=== PATIENT | male | born 1940 | race Caucasian/White ===

== ENCOUNTER 2016-11-19 18:05 | Inpatient (IN) | payer MEDICARE ==
[~2016-11-19] VITALS: Ht 172.7 cm; Wt 78.6 kg
[~2016-11-19 18:05] MED LIST: ASPI-586 PO; BISA-65 PO; CALC-697 PO; CALC600T12 PO; CARV3.12 PO; CARV3.122 PO; CARV6.252 PO; CEFD300C3 PO; CITA20TA12 PO; CITA20TA7 PO; CITA40TA19 PO; CLIN300C11 PO; DOXY100T2 PO; FURO-124 PO; FURO40TA4 PO; INSU100V16 SQ; INSU100V6 SQ; LIPA1CAP PO; LIPA1CAP19 PO; METAMUCIL425 G1 PO; MULT-35 PO; MULT-422 PO; PANT40SU PO; PANT40TA2 PO; PANT40TA3 PO; POLY17PO6 PO; POTA-51 PO; POTA10TA6 PO; PRAV20TA PO; PRAV40TA2 PO; PRAV80TA2 PO; PSYL3.4P5 PO; RIVA1PAT TD; TAMS0.4C2 PO; TAMS0.4C98 PO; TICA90TA PO
[2016-11-19] MEDS ORDERED: RT-ALBUTEROL/IPRATROPIUM 3 ML (DUONEB) VIAL ONE (18:15)
[2016-11-19] MEDS ORDERED: LORazepam INJ 2 MG/ML (ATIVAN) VIAL IVP ONE ×2 (18:15→20:45)
--- NOTE | 2016-11-19 18:17 | ED Respiratory ---
General Stated Complaint: SOB Source: EMS, RN notes reviewed, assisted records, old records Exam Limitations: clinical condition History of Present Illness Time seen by provider: 18:10 Initial Comments Patient brought in via EMS from local [place] c/ c/o fairly acute onset of respiratory distress just [employer] p/ awakening from a nap. Reportedly was fine before the nap. Recently dx c/ possible aspiration pneumonia and looks like Rx' d Clindamycin. Patient very anxious upon arrival. Unable to give any hx. Timing/Duration: just prior to arrival Severity: severe Prior Episodes/Possible Cause: unknown cause Modifying Factors: Improves With Rest Associated Symptoms: shortness of breath Allergies and Home Medications Allergies Coded Allergies: No Known Drug Allergies (Unverified , 03/14/16) Home Medications Aspirin 81 Mg Tablet.dr, 81 MG PO DAILY, (Reported) Calcium Carbonate/Vitamin D3 1 Each Tablet, 1 TAB PO BID, (Reported) Carvedilol 3.125 Mg Tablet, 3.125 MG PO BID, (Reported) LAST FILLED #60 01-28-16 Citalopram Hydrobromide 20 Mg Tablet, 20 MG PO DAILY for 28 Days, (Reported) LAST FILLED #30 16 Clindamycin HCl 300 Mg Capsule, 300 MG PO Q6H, #40 Ref 0 Prescribed by: ARVIND CRAWFORD on 03/06/16 1042 Furosemide 40 Mg Tablet, 40 MG PO DAILY, (Reported) Insulin Glargine,Hum.rec.anlog 100 Unit/1 Ml Vial, 15 UNIT SQ HS, #1 Ref 0 Prescribed by: ARVIND CRAWFORD on 03/06/16 1042 Lipase/Protease/Amylase 1 Each Capsule.dr, 15,000 UNIT PO TID, (Reported) TAKES 3 (5,000 UNIT) CAPSULES Pantoprazole Sodium 40 Mg Tablet.dr, 40 MG PO DAILY, (Reported) Polyethylene Glycol 3350 17 Gm Powd.pack, 17 GM PO DAILY PRN for CONSTIPATION, ( Reported) Potassium Chloride 10 Meq Tablet.er, 10 MEQ PO DAILY, (Reported) Tamsulosin HCl 0.4 Mg Cap.er.24h, 0.4 MG PO 1730, (Reported) Constitutional: see HPI Respiratory: see HPI, short of breath, wheezing Psychiatric/Neurological: See HPI, Anxiety All Other Systems Reviewed Negative Unless Noted: Yes (Negative excepted noted.) Past Etwhsag-Knhbnm-Hzolkk Hx Patient Social History Type Used: Cigarettes Former Smoker/When Quit: October 24, 1998 Recent Hopitalizations: No Immunizations Up To Date Tetanus Booster (TDap): Unknown PED Vaccines UTD: No Date of Pneumonia Vaccine: Jun 07, 2014 Date of Influenza Vaccine: Jun 07, 2014 Seasonal Allergies Seasonal Allergies: Yes Surgeries HX Surgeries: Yes Surgeries: Abdominal, Cardiac, Coronary Stent, Neurological Respiratory Hx Respiratory Disorders: Yes Respiratory Disorders: Pneumonia, COPD Cardiovascular Hx Cardiac Disorders: Yes Cardiac Disorders: Coronary Artery Disease, Heart Attack, High Cholesterol, Hypertension Neurological Hx Neurological Disorders: Yes Neurological Disorders: Dementia, Traumatic Brain Injury Reproductive System Hx Reproductive Disorders: No Sexually Transmitted Disease: No HIV/AIDS: No Genitourinary Hx Genitourinary Disorders: Yes Genitourinary Disorders: Prostate Problems, UTI-Chronic Gastrointestinal Hx Gastrointestinal Disorders: Yes Gastrointestinal Disorders: Pancreatitis Musculoskeletal Hx Musculoskeletal Disorders: Yes Musculoskeletal Disorders: Arthritis Endocrine Hx Endocrine Disorders: Yes Endocrine Disorders: Diabetes, Insulin dep HEENT HX ENT Disorders: Yes HEENT Disorders: Cataract Loss of Vision: Denies Hearing Impairment: Hard of Hearing, Hearing Aide Left Cancer Hx Cancer: No Psychosocial Hx Psychiatric Problems: No Behavioral Health Disorders: Depression Integumentary HX Skin/Integumentary Disorder: No Blood Transfusions Hx Blood Disorders: No Adverse Reaction to a Blood Tr: No Family Medical History Significant Family History: Heart Disease Family Medial History: Alcoholism 19 FATHER Arthritis 19 MOTHER Cataracts 19 FATHER G8 BROTHER G8 SISTER FH: esophageal cancer 19 MOTHER FH: hearing loss 19 FATHER 19 MOTHER G8 BROTHER G8 SISTER Myocardial infarction G8 BROTHER Physical Exam Vital Signs Vital Sign - Last 12Hours 11/19/16 18:12 Temp 97.5 Pulse 101 Resp 20 B/P (MAP) 136/75 Pulse Ox 96 O2 Delivery Nasal Cannula O2 Flow Rate 3.00 Capillary Refill : General Appearance: WD/WN, moderate distress Respiratory: respiratory distress, decreased breath sounds, accessory muscle use, wheezing Cardiovascular: regular rate, rhythm Neurologic/Psychiatric: no motor/sensory deficits, alert Skin: warm/dry Focused Exam Lactic Acid Level Laboratory Tests Test 11/19/16 19:01 Lactic Acid Level 2.11 MMOL/L (0.50-2.00) *H Progress/Results/Core Measures Results/Orders Lab Results Laboratory Tests Test 11/19/16 18:27 11/19/16 19:01 Range/Units Blood Gas Puncture Site LEFT RADIAL Blood Gas Patient Temperature 96.8 Arterial Blood pH 7.59 H 7.37-7.43 Arterial Blood Partial Pressure CO2 25 L 35-45 MMHG Arterial Blood Partial Pressure O2 141 H 79-93 MMHG Arterial Blood HCO3 24 23-27 MMOL/L Arterial Blood Total CO2 25.2 21.0-31.0 MMOL/L Arterial Blood Oxygen Saturation 94-100 % Arterial Blood Base Excess 2.2 -2.5-2.5 MMOL/L Mendez Test YES-POS Blood Gas Ventilator Setting NO Blood Gas Inspired Oxygen 10L White Blood Count 6.6 4.3-11.0 10^3/uL Red Blood Count 4.44 4.35-5.85 10^6/uL Hemoglobin 12.2 L 13.3-17.7 G/DL Hematocrit 39 L 40-54 % Mean Corpuscular Volume 87 80-99 FL Mean Corpuscular Hemoglobin 28 25-34 PG Mean Corpuscular Hemoglobin Concent 31 L 32-36 G/DL Red Cell Distribution Width 13.2 10.0-14.5 % Platelet Count 165 130-400 10^3/uL Mean Platelet Volume 9.8 7.4-10.4 FL Neutrophils (%) (Auto) 61 42-75 % Lymphocytes (%) (Auto) 25 12-44 % Monocytes (%) (Auto) 11 0-12 % Eosinophils (%) (Auto) 2 0-10 % Basophils (%) (Auto) 1 0-10 % Neutrophils # (Auto) 4.1 1.8-7.8 X 10^3 Lymphocytes # (Auto) 1.7 1.0-4.0 X 10^3 Monocytes # (Auto) 0.7 0.0-1.0 X 10^3 Eosinophils # (Auto) 0.1 0.0-0.3 10^3/uL Basophils # (Auto) 0.0 0.0-0.1 10^3/uL Sodium Level 134 L 135-145 MMOL/L Potassium Level 4.7 3.6-5.0 MMOL/L Chloride Level 97 L 98-107 MMOL/L Carbon Dioxide Level 24 21-32 MMOL/L Anion Gap 13 5-14 MMOL/L Blood Urea Nitrogen 22 H 7-18 MG/DL Creatinine 1.31 H 0.60-1.30 MG/DL Estimat Glomerular Filtration Rate 53 BUN/Creatinine Ratio 17 0-20 Glucose Level 298 H 70-105 MG/DL Lactic Acid Level 2.11 *H 0.50-2.00 MMOL/L Calcium Level 9.2 8.5-10.1 MG/DL Magnesium Level 1.4 L 1.8-2.4 MG/DL Total Bilirubin 0.4 0.1-1.0 MG/DL Aspartate Amino Transf (AST/SGOT) 24 5-34 U/L Alanine Aminotransferase (ALT/SGPT) 17 0-55 U/L Alkaline Phosphatase 98 40-136 U/L Troponin I < 0.30 <0.30 NG/ML B-Type Natriuretic Peptide 413.4 H <100.0 PG/ML Total Protein 8.1 6.4-8.2 GM/DL Albumin 3.8 3.2-4.5 GM/DL My Orders Orders - LEMUEL TRAORE DO Lorazepam Injection (Ativan Injection) (11/19/16 18:15) Ekg Tracing (11/19/16 18:13) Arterial Blood Gas (11/19/16 18:13) BNP (11/19/16 18:13) Cbc With Automated Diff (11/19/16 18:13) Comprehensive Metabolic Panel (11/19/16 18:13) Magnesium (11/19/16 18:13) Chest 1 View, Ap/Pa Only (11/19/16 18:13) Troponin I (11/19/16 18:15) Albuterol/Ipra Inhalation Soln (Duoneb I (11/19/16 18:15) Blood Culture (11/19/16 18:28) Lactic Acid Analyzer (11/19/16 18:28) Piperacillin Sodium/Tazobactam (Zosyn Vi (11/19/16 20:45) Lorazepam Injection (Ativan Injection) (11/19/16 20:45) Furosemide Injection (Lasix Injection) (11/19/16 20:45) Medications Given in ED Current Medications Medications Dose Ordered Sig/Paulino Route Start Time Stop Time Status Last Admin Dose Admin Albuterol/ Ipratropium 3 ml STK-MED ONCE .ROUTE 11/19/16 18:15 11/19/16 18:21 DC 11/19/16 18:28 3 ML Lorazepam 1 mg ONCE ONCE IVP 6/15/17 18:15 11/19/16 18:16 DC 11/19/16 19:00 1 MG Vital Signs/I&O Vital Sign - Last 12Hours 11/19/16 11/19/16 18:12 18:28 Temp 97.5 Pulse 101 Resp 20 B/P (MAP) 136/75 Pulse Ox 96 98 O2 Delivery Nasal Cannula Nasal Cannula O2 Flow Rate 3.00 3.00 ECG Initial ECG Rhythm: S.Tach Diagnostic Imaging Diagonstic Imaging: Xray Plain Films/CT/US/NM/MRI: chest Reviewed: Reviewed/Discussed Departure Communication Time/Spoke to Admitting Phy: 20:35 Impression Impression: Primary Impression: Respiratory distress Additional Impressions: CHF exacerbation Pneumonia Anxiety Disposition: ADMITTED INPATIENT Condition: Stable Decision to Admit Reason: Admit from ER (General) Decision to Admit/Date: Nov 19, 2016 Time/Decision to Admit Time: 20:35 Departure-Patient Inst. Referrals: MYKEL RAMOS MD (PCP/Family) Primary Care Physician LEMUEL TRAORE DO Nov 19, 2016 18:17
[2016-11-19 18:38] LABS: ABG BASE EXCESS 2.2 MMOL/L (-2.5-2.5); ABG HCO3 24 MMOL/L (23-27); ABG PCO2 25 MMHG (35-45); ABG PH 7.59 (7.37-7.43); ABG PO2 141 MMHG (79-93); ABG TCO2 25.2 MMOL/L (21.0-31.0)
[2016-11-19 18:44] LABS: ABG OXYGEN SATURATION QNS % (94-100); ALLENS TEST YES-POS
[2016-11-19 18:45] LABS: PATIENT TEMP 96.8
--- NOTE | 2016-11-19 18:57 | Diagnostic Imaging Report ---
INDICATION: Shortness of breath. COMPARISON: 03/09/2016 FINDINGS: Upright portable view of the chest is obtained. Heart size is enlarged slightly more prominent than on the prior study. There is moderate central venous congestion increased from the prior exam. There is no pneumothorax suspected. There are fairly dense consolidated infiltrates seen within the right mid lung and left lung base with more patchy airspace disease seen at the right lung base. Suspect bilateral effusions as well. No pneumothorax is seen. IMPRESSION: 1. There is increasing cardiomegaly and central venous congestion suggestive of an underlying element of failure/edema. 2. There is fairly dense consolidated airspace disease in the right midlung and lateral left lung base with more patchy airspace disease seen at the right lung base. Also suspect bilateral pleural effusions. These findings may be secondary to severe edema or superimposed pneumonia. Dictated by: Dictated on workstation # [id number]
[2016-11-19 19:11] LABS: BASOPHILS % (AUTO) 1 % (0-10); EOSINOPHILS # (AUTO) 0.1 10^3/uL (0.0-0.3); EOSINOPHILS % (AUTO) 2 % (0-10); LYMPHOCYTES # (AUTO) 1.7 X 10^3 (1.0-4.0); LYMPHOCYTES % (AUTO) 25 % (12-44); MEAN CORPUSCULAR HEMOGLOBIN 28 PG (25-34); MEAN CORPUSCULAR HGB CONC 31 G/DL (32-36); MEAN CORPUSCULAR VOLUME 87 FL (80-99); MEAN PLATELET VOLUME 9.8 FL (7.4-10.4); MONOCYTES # (AUTO) 0.7 X 10^3 (0.0-1.0); MONOCYTES % (AUTO) 11 % (0-12); NEUTROPHILS # (AUTO) 4.1 X 10^3 (1.8-7.8); NEUTROPHILS % (AUTO) 61 % (42-75); PLATELET COUNT 165 10^3/uL (130-400); RED BLOOD COUNT 4.44 10^6/uL (4.35-5.85); RED CELL DISTRIBUTION WIDTH 13.2 % (10.0-14.5); WHITE BLOOD COUNT 6.6 10^3/uL (4.3-11.0)
[2016-11-19 19:32] LABS: ALANINE AMINOTRANSFERASE 17 U/L (0-55); ALBUMIN 3.8 GM/DL (3.2-4.5); ANION GAP 13 MMOL/L (5-14); ASPARTATE AMINO TRANSFERASE 24 U/L (5-34); BILIRUBIN,TOTAL 0.4 MG/DL (0.1-1.0); BLOOD UREA NITROGEN 22 MG/DL (7-18); BUN/CREATININE RATIO 17 (0-20); CALCIUM 9.2 MG/DL (8.5-10.1); CARBON DIOXIDE 24 MMOL/L (21-32); CHLORIDE 97 MMOL/L (98-107); CREATININE SERUM 1.31 MG/DL (0.60-1.30); GFR ESTIMATED 53; GLUCOSE 298 MG/DL (70-105); HEMOLYSIS 4 (0-29); ICTERUS 0.3 (0-1.9); LIPEMIA -2 (0-49); MAGNESIUM 1.4 MG/DL (1.8-2.4); POTASSIUM 4.7 MMOL/L (3.6-5.0); SODIUM 134 MMOL/L (135-145); TOTAL PROTEIN 8.1 GM/DL (6.4-8.2)
[2016-11-19 19:41] LABS: TROPONIN I < 0.30 NG/ML (<0.30)
[2016-11-19] MEDS ORDERED: FUROSEMIDE 40 MG/4 ML INJ (LASIX) IVP ONE (20:45)
[2016-11-19] MEDS ORDERED: PIPERACILLIN SODIUM/TAZOBACTAM 4.5 GM in NS (IVPB) 100 ML IV ONE (20:45)
[2016-11-19 22:45] VITALS: BP 122/85
[2016-11-19] MEDS ORDERED: NS IV 1000 ML 1,000 ML ONE (23:22)
[2016-11-20] VITALS (7 sets, daily range): BP systolic 108–138; BP diastolic 52–75
[2016-11-20] MEDS ORDERED: RT-ALBUTEROL SULF 2.5 MG/3 ML PRE-MIX VIAL IH PRN (00:15)
[2016-11-20] MEDS ORDERED: VANCOMYCIN INJECTION 1,500 MG in NS IV 500 ML 500 ML IV ONE (00:38)
[2016-11-20] MEDS: LEVOFLOXACIN 750 MG/150 ML IV 150 ML IV SCH ×2 (01:40→23:59)
[2016-11-20] MEDS ORDERED: VANCOMYCIN 1 GM/NS 250 ML IVPB IV ONE ×2 (01:45)
[2016-11-20] MEDS: NS IV 1000 ML 1,000 ML IV SCH ×2 (02:03→19:00)
[2016-11-20] MEDS: LORazepam INJ 2 MG/ML (ATIVAN) VIAL IV PRN ×2 (03:49→08:24)
[2016-11-20] MEDS: PIPERACILLIN SODIUM/TAZOBACTAM 4.5 GM in NS (IVPB) 100 ML IV SCH ×3 (04:32→19:00)
[2016-11-20 05:40] LABS: CALCIUM 9.3 MG/DL (8.5-10.1); CREATININE SERUM 1.29 MG/DL (0.60-1.30); ICTERUS 0.3 (0-1.9); POTASSIUM 4.5 MMOL/L (3.6-5.0)
[2016-11-20] MEDS: inSUlin (REGULAR) HUMAN 1 UNIT/0.01 ML (CHARGE PER UNIT) SC SCH ×4 (05:40→20:55)
[2016-11-20] MEDS ORDERED: RT-ALBUTEROL SULF 2.5 MG/3 ML PRE-MIX VIAL IH SCH (08:00)
[2016-11-20] MEDS: RT-ALBUTEROL/IPRATROPIUM 3 ML (DUONEB) VIAL IH SCH ×3 (08:48→19:14)
[2016-11-20] MEDS: FUROSEMIDE 40 MG/4 ML INJ (LASIX) IV SCH ×2 (09:11→20:55)
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
[2016-11-20] MEDS ORDERED: HALOPERIDOL 5 MG/ML (HALDOL) AMP IM PRN (10:15)
[2016-11-20] MEDS ORDERED: PANTOPRAZOLE 40 MG/10 ML (PROTONIX) VIAL IV NR (10:15)
[2016-11-20] MEDS ORDERED: TRAZ-28 PO (11:29)
[2016-11-20] MEDS ORDERED: MELA1TAB10 PO (11:29)
[2016-11-20] MEDS ORDERED: CETI10TA17 PO (11:29)
[2016-11-20] MEDS ORDERED: ATOR20TA66 PO (11:29)
[2016-11-20] MEDS ORDERED: INSU100V16 SQ (11:29)
[2016-11-20] MEDS ORDERED: INSU100V6 SQ ×2 (11:29)
[2016-11-20] MEDS ORDERED: RIVA1PAT12 TD (11:29)
[2016-11-20] MEDS ORDERED: OMEP20CA12 PO (11:29)
[2016-11-20] MEDS ORDERED: SERT25TA5 PO (11:29)
[2016-11-20] MEDS ORDERED: LIPA1CAP26 PO (11:29)
[2016-11-20] MEDS: ENOXAPARIN 40 MG/0.4 ML (LOVENOX) SYR SC SCH (12:53)
[2016-11-20] MEDS ORDERED: LIPASE PO SCH (13:00)
[2016-11-20] MEDS ORDERED: AMYLASE PO SCH (13:00)
[2016-11-20] MEDS ORDERED: [UNRECOGNIZED DRUG - OTHER] PO SCH (13:00)
[2016-11-20] MEDS ORDERED: PROTEASE PO SCH (13:00)
--- NOTE | 2016-11-20 15:50 | Speech Therapy Progress Note ---
Therapy Progress Note Dysphagia consultation received and chart reviewed by the clinician. The clinician attempted the swallowing evaluation at 15:34. Regardless of verbal prompting, the patient would not remain in an appropriate alertness level for safe assessment. This information was shared with the patient's family, who was at bedside, and the patient's RN. Speech pathology will reattempt swallowing evaluation, as able. MAYUR ESPOSITO Nov 20, 2016 15:50
[2016-11-20] MEDS ORDERED: NON-FORMULARY MEDICATION 1 EA EA (Tamsulosin HCl 0.4 MG) PO SCH (17:00)
[2016-11-20] MEDS: ALFUZOSIN HCL 10 MG TAB (UROXATRAL) PO SCH (17:17)
[2016-11-20] MEDS: LIPASE/AMYLASE/PROTEASE (PANCRELIPASE) 5,000 UNITS CAP PO SCH (17:17)
[2016-11-20] MEDS: ATORVASTATIN 20 MG (LIPITOR) TABLET PO SCH (20:49)
[2016-11-21] MEDS: RT-ALBUTEROL/IPRATROPIUM 3 ML (DUONEB) VIAL IH SCH ×4 (02:05→19:31)
[2016-11-21] MEDS: PIPERACILLIN SODIUM/TAZOBACTAM 4.5 GM in NS (IVPB) 100 ML IV SCH ×3 (02:28→18:10)
[2016-11-21 03:50] VITALS: BP 91/51
[2016-11-21] MEDS: NS IV 1000 ML 1,000 ML IV SCH ×3 (04:24→23:12)
[2016-11-21 05:22] LABS: MEAN PLATELET VOLUME 10.4 FL (7.4-10.4); RED BLOOD COUNT 4.16 10^6/uL (4.35-5.85); RED CELL DISTRIBUTION WIDTH 13.3 % (10.0-14.5); WHITE BLOOD COUNT 6.6 10^3/uL (4.3-11.0)
[2016-11-21 05:43] LABS: ALBUMIN 3.7 GM/DL (3.2-4.5); BILIRUBIN,TOTAL 0.6 MG/DL (0.1-1.0); CALCIUM 9.1 MG/DL (8.5-10.1); CREATININE SERUM 1.44 MG/DL (0.60-1.30); ICTERUS 0.4 (-100-1.9); POTASSIUM 3.7 MMOL/L (3.6-5.0); TOTAL PROTEIN 7.4 GM/DL (6.4-8.2)
[2016-11-21] MEDS: inSUlin (REGULAR) HUMAN 1 UNIT/0.01 ML (CHARGE PER UNIT) SC SCH ×4 (05:47→21:09)
[2016-11-21] MEDS: LIPASE/AMYLASE/PROTEASE (PANCRELIPASE) 5,000 UNITS CAP PO SCH ×3 (05:48→16:40)
[2016-11-21 08:01] VITALS: BP 113/63
[2016-11-21] MEDS: VANCOMYCIN 1250 MG/NS 250 ML IVPB IV SCH ×2 (08:39)
[2016-11-21] MEDS: RIVASTIGMINE 4.6 MG PATCH (EXELON) TD SCH (08:41)
[2016-11-21] MEDS: FUROSEMIDE 40 MG/4 ML INJ (LASIX) IV SCH ×2 (08:41→21:09)
[2016-11-21] MEDS: PANTOPRAZOLE 40 MG/10 ML (PROTONIX) VIAL IV SCH (08:41)
[2016-11-21] MEDS: RIVASTIGMINE PATCH REMOVAL TP SCH (08:46)
[2016-11-21] MEDS ORDERED: RIVASTIGMINE 4.6 MG TD SCH (09:00)
[2016-11-21] MEDS ORDERED: NON-FORMULARY MEDICATION 1 EA EA (Sertraline HCl 25 MG) PO SCH (09:00)
[2016-11-21] MEDS ORDERED: NON-FORMULARY MEDICATION 1 EA EA (Cetirizine HCl 10 MG) PO SCH (09:00)
--- NOTE | 2016-11-21 09:31 | Progress Note (SOAP) ---
Subjective Time Seen by Provider: 09:30 Subjective/Events-last exam family states patient is better.. patient is hungry. Patient woke up and acting like himself pneumonia. Elevated lactic acid. Dementia. TBI. Acute renal insufficiency Objective Exam Vital Signs Date Time Temp Pulse Resp B/P (MAP) Pulse Ox O2 Delivery O2 Flow Rate FiO2 11/21/16 08:45 Nasal Cannula 3.00 97 11/21/16 08:01 98.5 94 18 113/63 96 Nasal Cannula 2.50 11/21/16 03:50 97.2 98 20 91/51 94 Nasal Cannula 2.50 11/21/16 02:06 Nasal Cannula 3.00 94 11/21/16 00:46 77 11/20/16 23:25 96.0 90 16 131/75 99 Nasal Cannula 2.50 11/20/16 19:45 96 Nasal Cannula 2.50 11/20/16 19:37 82 11/20/16 19:30 98.0 82 20 115/63 96 Nasal Cannula 2.50 11/20/16 19:14 Nasal Cannula 3.00 11/20/16 16:10 96.0 92 19 111/65 99 Nasal Cannula 2.50 11/20/16 13:41 93 Nasal Cannula 3.00 11/20/16 13:00 77 11/20/16 12:00 97.0 92 20 115/71 92 Nasal Cannula 2.00 I & O 11/21/16 07:00 Intake Total 450 ml Output Total 3425 ml Balance -2975 ml Capillary Refill : Less Than 3 Seconds General Appearance: No Apparent Distress, WD/WN HEENT: Normal ENT Inspection, Other (heart of hearing) Neck: Full Range of Motion, Normal Inspection Respiratory: Chest Non Tender, Normal Breath Sounds, No Accessory Muscle Use, No Respiratory Distress Cardiovascular: Regular Rate, Rhythm, No Murmur Gastrointestinal: non tender, soft Results Lab Laboratory Tests 11/21/16 04:16 Laboratory Tests 11/20/16 11:32: Glucometer 107 11/20/16 16:11: Glucometer 91 11/20/16 20:53: Glucometer 80 11/21/16 04:16: White Blood Count 6.6, Red Blood Count 4.16L, Hemoglobin 11.5L, Hematocrit 36L, Mean Corpuscular Volume 87, Mean Corpuscular Hemoglobin 28, Mean Corpuscular Hemoglobin Concent 32, Red Cell Distribution Width 13.3, Platelet Count 176, Mean Platelet Volume 10.4, Sodium Level 141, Potassium Level 3.7, Chloride Level 96L, Carbon Dioxide Level 29, Anion Gap 16H, Blood Urea Nitrogen 27H, Creatinine 1.44H, Estimat Glomerular Filtration Rate 47, BUN/Creatinine Ratio 19 , Glucose Level 80, Calcium Level 9.1, Total Bilirubin 0.6, Aspartate Amino Transf (AST/SGOT) 43H, Alanine Aminotransferase (ALT/SGPT) 16, Alkaline Phosphatase 86, B-Type Natriuretic Peptide 188.0H, Total Protein 7.4, Albumin 3.7 Microbiology 11/19/16 Blood Culture - Preliminary, Resulted No growth Assessment/Plan Assessment/Plan Assess & Plan/Chief Complaint pneumonia. Acute renal insufficiency. Diabetes. TBI. Dementia Clinical Quality Measures DVT/VTE Risk/Contraindication: Risk Factor Score Per Nursin RFS Level Per Nursing on Admit: 4+=Very High STAN LUIS DO Nov 21, 2016 09:31
[2016-11-21] MEDS: ASPIRIN E.C. 81 MG (ECOTRIN) TAB PO SCH (09:51)
[2016-11-21] MEDS: SERTRALINE 50 MG (ZOLOFT) TABLET PO SCH (09:51)
[2016-11-21] MEDS: POLYETHYLENE GLYCOL 17 GM (MIRALAX) PACK PO SCH (09:51)
[2016-11-21] MEDS: LORATADINE (CLARITIN) 10 MG TAB PO SCH (09:51)
[2016-11-21 11:40] VITALS: BP 106/62
[2016-11-21] MEDS: ENOXAPARIN 40 MG/0.4 ML (LOVENOX) SYR SC SCH (11:42)
--- NOTE | 2016-11-21 14:58 | Diagnostic Imaging Report ---
EXAM: Portable erect AP chest at 11:22 a.m. INDICATION: Pneumonia FINDINGS: The appearance of the chest has improved since the prior exam of 11/19/16 as both lungs appear much better aerated. The heart remains enlarged but there is no evidence for overt congestive failure. There is a persistent 2.7 x 7.8 cm oval density overlying the right midlung. This may be related to a loculated effusion in the minor fissure. It would be less likely that this is a mass or an area of consolidation. Even so, a followup exam would be recommended to assure that this abnormal density clears completely. There also appears to a be a small amount of fluid in each lung base. The mediastinum is not widened. The osseous structures are intact. IMPRESSION: 1. The appearance of the chest has improved as both lungs are much better aerated. 2. There is a persistent oval area of increased density overlying the right midlung. Considerations and recommendations as above. Dictated by: Dictated on workstation # [id number]
[2016-11-21 16:10] VITALS: BP 101/60
[2016-11-21] MEDS: ALFUZOSIN HCL 10 MG TAB (UROXATRAL) PO SCH (16:40)
[2016-11-21 19:50] VITALS: BP 91/54
[2016-11-21] MEDS: ATORVASTATIN 20 MG (LIPITOR) TABLET PO SCH (21:09)
[2016-11-21 21:16] VITALS: BP 91/54
[2016-11-22] VITALS: BP 110/55
[2016-11-22] MEDS: LEVOFLOXACIN 750 MG/150 ML IV 150 ML IV SCH (00:33)
[2016-11-22] MEDS: RT-ALBUTEROL/IPRATROPIUM 3 ML (DUONEB) VIAL IH SCH ×4 (02:27→19:30)
[2016-11-22] MEDS: PIPERACILLIN SODIUM/TAZOBACTAM 4.5 GM in NS (IVPB) 100 ML IV SCH ×3 (02:31→18:04)
[2016-11-22 04:00] VITALS: BP 100/55
[2016-11-22 05:35] LABS: MEAN PLATELET VOLUME 9.9 FL (7.4-10.4); RED BLOOD COUNT 4.19 10^6/uL (4.35-5.85); RED CELL DISTRIBUTION WIDTH 13.4 % (10.0-14.5); WHITE BLOOD COUNT 5.7 10^3/uL (4.3-11.0)
[2016-11-22 06:05] LABS: ALBUMIN 3.5 GM/DL (3.2-4.5); BILIRUBIN,TOTAL 0.5 MG/DL (0.1-1.0); CALCIUM 8.9 MG/DL (8.5-10.1); CREATININE SERUM 1.92 MG/DL (0.60-1.30); ICTERUS 0.4 (-100-1.9); POTASSIUM 4.3 MMOL/L (3.6-5.0); TOTAL PROTEIN 7.5 GM/DL (6.4-8.2)
[2016-11-22] MEDS: LIPASE/AMYLASE/PROTEASE (PANCRELIPASE) 5,000 UNITS CAP PO SCH ×3 (06:05→17:31)
[2016-11-22] MEDS: inSUlin (REGULAR) HUMAN 1 UNIT/0.01 ML (CHARGE PER UNIT) SC SCH ×4 (06:24→20:51)
[2016-11-22] MEDS ORDERED: inSUlin (REGULAR) HUMAN 1 UNIT/0.01 ML (CHARGE PER UNIT) SC ONE (06:30)
[2016-11-22 08:00] VITALS: BP 109/63
--- NOTE | 2016-11-22 08:03 | Progress Note (SOAP) ---
Subjective Time Seen by Provider: 07:55 Subjective/Events-last exam patient up all night. Patient has renal insufficiency worse. Patient urinating much DC Lasix. Decrease IV to 50 mL an hour. Decrease Levaquin 500 mg IV daily. Diagnosis respiratory distress. Pneumonia. CHF. Dementia Objective Exam Vital Signs Date Time Temp Pulse Resp B/P (MAP) Pulse Ox O2 Delivery O2 Flow Rate FiO2 11/22/16 04:00 97.8 103 0 100/55 93 Nasal Cannula 2.50 11/22/16 02:27 98 Nasal Cannula 3.00 11/22/16 01:00 101 11/22/16 00:00 97.5 100 20 110/55 98 Nasal Cannula 2.50 11/21/16 19:50 99.8 94 18 91/54 96 Nasal Cannula 2.50 11/21/16 19:40 96 Nasal Cannula 2.50 11/21/16 19:31 92 Nasal Cannula 3.00 11/21/16 19:13 105 11/21/16 16:10 98.2 91 18 101/60 96 Nasal Cannula 2.50 11/21/16 13:00 97 11/21/16 11:40 98.0 104 22 106/62 99 Nasal Cannula 2.50 11/21/16 08:45 Nasal Cannula 3.00 97 11/21/16 08:01 98.5 94 18 113/63 96 Nasal Cannula 2.50 11/21/16 08:00 99 Nasal Cannula 3.00 I & O 11/22/16 07:00 Intake Total 3682.5 ml Output Total 1850 ml Balance 1832.5 ml Capillary Refill : Less Than 3 Seconds General Appearance: No Apparent Distress, WD/WN HEENT: Normal ENT Inspection Neck: Full Range of Motion, Normal Inspection Respiratory: Chest Non Tender, Normal Breath Sounds, No Accessory Muscle Use, No Respiratory Distress Cardiovascular: Regular Rate, Rhythm, No Murmur Gastrointestinal: non tender, soft Results Lab Laboratory Tests 11/22/16 05:25 Laboratory Tests 11/21/16 09:40: Lactic Acid Level 4.44*H 11/21/16 10:41: Glucometer 151H 11/21/16 12:10: Lactic Acid Level 3.04*H 11/21/16 14:05: Lactic Acid Level 1.24 11/21/16 16:18: Glucometer 237H 11/21/16 20:38: Glucometer 110 11/22/16 05:25: White Blood Count 5.7, Red Blood Count 4.19L, Hemoglobin 11.5L, Hematocrit 37L, Mean Corpuscular Volume 87, Mean Corpuscular Hemoglobin 27, Mean Corpuscular Hemoglobin Concent 31L, Red Cell Distribution Width 13.4, Platelet Count 146, Mean Platelet Volume 9.9, Sodium Level 134L, Potassium Level 4.3, Chloride Level 93L, Carbon Dioxide Level 24, Anion Gap 17H, Blood Urea Nitrogen 33H, Creatinine 1.92H, Estimat Glomerular Filtration Rate 34, BUN/Creatinine Ratio 17 , Glucose Level 546*H, Calcium Level 8.9, Total Bilirubin 0.5, Aspartate Amino Transf (AST/SGOT) 69H, Alanine Aminotransferase (ALT/SGPT) 21, Alkaline Phosphatase 80, Total Protein 7.5, Albumin 3.5 11/22/16 06:18: Glucometer 481*H Microbiology 11/19/16 Blood Culture - Preliminary, Resulted No growth Assessment/Plan Assessment/Plan Assess & Plan/Chief Complaint pneumonia. Acute renal insufficiency. Diabetes. TBI. Dementia. . 11/22/16. pneumonia. Acute renal insufficiency. Diabetes. TBI. Dementia. Patient up all night. Patient urinating frequently Clinical Quality Measures DVT/VTE Risk/Contraindication: Risk Factor Score Per Nursin RFS Level Per Nursing on Admit: 4+=Very High STAN LUIS DO Nov 22, 2016 08:03
[2016-11-22] MEDS: VANCOMYCIN 1250 MG/NS 250 ML IVPB IV SCH ×2 (08:12)
[2016-11-22] MEDS: NS IV 1000 ML 1,000 ML IV SCH (08:12)
[2016-11-22] MEDS: PANTOPRAZOLE 40 MG/10 ML (PROTONIX) VIAL IV SCH (08:13)
[2016-11-22] MEDS: LORATADINE (CLARITIN) 10 MG TAB PO SCH (08:14)
[2016-11-22] MEDS: ASPIRIN E.C. 81 MG (ECOTRIN) TAB PO SCH (08:14)
[2016-11-22] MEDS: RIVASTIGMINE PATCH REMOVAL TP SCH (08:15)
[2016-11-22] MEDS: SERTRALINE 50 MG (ZOLOFT) TABLET PO SCH (08:15)
[2016-11-22] MEDS: RIVASTIGMINE 4.6 MG PATCH (EXELON) TD SCH (08:15)
[2016-11-22] MEDS: POLYETHYLENE GLYCOL 17 GM (MIRALAX) PACK PO SCH (08:15)
--- NOTE | 2016-11-22 10:50 | Diagnostic Imaging Report ---
INDICATION: Pneumonia. TECHNIQUE: Single-view chest 4:46 AM. CORRELATION STUDY: 11/21/2016. FINDINGS: Heart size enlarged. Mediastinum prominent. Vasculature overall slightly increased. Patchy area of infiltrate or perhaps even loculated fluid at the right mid lung is stable. Additional small right pleural effusion. IMPRESSION: Masslike density of the right midlung persisting stable/ slightly increased. This may very well reflect a pseudomass with loculated fluid along the fissure plane with additional right pleural effusion. Mass lesion or infiltrate could also give this appearance. Heart size and vasculature overall increased from prior study. Continued followup imaging recommended. Dictated by: Dictated on workstation # [id number]
[2016-11-22] MEDS: ENOXAPARIN 40 MG/0.4 ML (LOVENOX) SYR SC SCH (11:06)
[2016-11-22 12:00] VITALS: BP 97/56
[2016-11-22 16:00] VITALS: BP 140/61
[2016-11-22] MEDS: ALFUZOSIN HCL 10 MG TAB (UROXATRAL) PO SCH (17:31)
[2016-11-22 20:00] VITALS: BP 112/57
[2016-11-22] MEDS: ATORVASTATIN 20 MG (LIPITOR) TABLET PO SCH (20:50)
[2016-11-22] MEDS: inSUlin DETERMIR 1 UNIT/0.01 ML (LEVEMIR) CHARGE PER UNIT SQ SCH (20:51)
[2016-11-23] VITALS: BP 119/60
[2016-11-23] MEDS ORDERED: LEVOFLOXACIN 500 MG/D5W 100 ML (PRE-MIX) IV SCH (00:45)
[2016-11-23] MEDS: PIPERACILLIN SODIUM/TAZOBACTAM 4.5 GM in NS (IVPB) 100 ML IV SCH ×3 (02:45→19:35)
[2016-11-23] MEDS: RT-ALBUTEROL/IPRATROPIUM 3 ML (DUONEB) VIAL IH SCH ×4 (03:13→21:12)
[2016-11-23 03:59] VITALS: BP 92/52
[2016-11-23] MEDS: LIPASE/AMYLASE/PROTEASE (PANCRELIPASE) 5,000 UNITS CAP PO SCH ×3 (06:08→17:59)
[2016-11-23] MEDS: inSUlin (REGULAR) HUMAN 1 UNIT/0.01 ML (CHARGE PER UNIT) SC SCH ×4 (06:08→20:57)
[2016-11-23] MEDS ORDERED: TROUGH ORDER-PHARMACY XX NR (07:00)
[2016-11-23 07:24] LABS: MEAN PLATELET VOLUME 9.9 FL (7.4-10.4); RED BLOOD COUNT 4.05 10^6/uL (4.35-5.85); RED CELL DISTRIBUTION WIDTH 13.2 % (10.0-14.5)
[2016-11-23 07:51] LABS: ALBUMIN 3.5 GM/DL (3.2-4.5); BILIRUBIN,TOTAL 0.7 MG/DL (0.1-1.0); CALCIUM 8.7 MG/DL (8.5-10.1); CREATININE SERUM 1.44 MG/DL (0.60-1.30); ICTERUS 0.5 (-100-1.9); POTASSIUM 3.9 MMOL/L (3.6-5.0); TOTAL PROTEIN 7.1 GM/DL (6.4-8.2)
[2016-11-23 08:30] VITALS: BP 93/52
--- NOTE | 2016-11-23 08:37 | Progress Note (SOAP) ---
Subjective Date Seen by Provider: Nov 23, 2016 Time Seen by Provider: 07:55 Subjective/Events-last exam PT IS A 76 Y/O MALE WHO IS A PENITENTIARY PATIENT. HE WAS ADMITTED TO THE HOSPITAL ON WEDNESDAY OF LAST WEEK FOR RECURRENT PNEUMONIA AND HYPOXEMIA. HE WAS OBTUNDED ON MY EVALUATION ON WEDNESDAY. THIS MORNING, HE IS SITTING UP AT BEDSIDE , CONVERSANT, BUT NOT ORIENTED TO PLACE, TIME, AND UNABLE TO PARTICIPATE IN MEANINGFUL CONVERSATION. HE STATES THAT HE FEELS OKAY. FAMILY NOT PRESENT THIS MORNING. Review of Systems General: Fatigue Pulmonary: No Dyspnea, No Cough Cardiovascular: No: Chest Pain Gastrointestinal: No: Abdominal Pain, Nausea Musculoskeletal: No: other Neurological: Confusion, Weakness Objective Exam Vital Signs Date Time Temp Pulse Resp B/P (MAP) Pulse Ox O2 Delivery O2 Flow Rate FiO2 11/23/16 03:59 97.8 100 18 92/52 99 Nasal Cannula 4.00 11/23/16 03:13 98 Nasal Cannula 3.00 11/23/16 01:00 97 11/23/16 00:00 98.7 107 18 119/60 97 Nasal Cannula 3.00 11/22/16 20:00 97.9 108 20 112/57 93 Nasal Cannula 2.50 11/22/16 19:40 Nasal Cannula 2.50 11/22/16 19:30 Nasal Cannula 3.00 11/22/16 19:00 104 11/22/16 16:00 97.6 95 20 140/61 98 Nasal Cannula 2.50 11/22/16 14:56 97 Nasal Cannula 3.00 11/22/16 13:00 97 11/22/16 12:00 97.5 103 16 97/56 97 Nasal Cannula 2.50 11/22/16 10:05 97 Nasal Cannula 3.00 I & O 11/23/16 07:00 Intake Total 2482.5 ml Output Total 1325 ml Balance 1157.5 ml Capillary Refill : Less Than 3 Seconds General Appearance: No Apparent Distress, WD/WN HEENT: PERRL/EOMI Neck: Supple Respiratory: Chest Non Tender, Crackles (RIGHT MID-LUNG AND WITH DECREASED BREATH SOUNDS AT RIGHT BASE.), Decreased Breath Sounds Cardiovascular: Regular Rate, Rhythm, No Edema Gastrointestinal: normal bowel sounds, non tender, soft, no organomegaly, no pulsatile mass Extremity: Normal Capillary Refill, No Calf Tenderness, No Pedal Edema Neurologic/Psychiatric: Alert, Other (ORIENTED TO PERSON, NOT PLACE OR TIME) Skin: Warm/Dry Lymphatic: No Adenopathy Results Lab Laboratory Tests 11/22/16 11:17: Glucometer 263H 11/22/16 16:07: Glucometer 184H 11/22/16 20:28: Glucometer 322H 11/23/16 06:06: Glucometer 117H 11/23/16 07:15: White Blood Count 6.0, Red Blood Count 4.05L, Hemoglobin 11.2L, Hematocrit 35L, Mean Corpuscular Volume 86, Mean Corpuscular Hemoglobin 28, Mean Corpuscular Hemoglobin Concent 32, Red Cell Distribution Width 13.2, Platelet Count 153, Mean Platelet Volume 9.9, Sodium Level 137, Potassium Level 3.9, Chloride Level 99, Carbon Dioxide Level 26, Anion Gap 12, Blood Urea Nitrogen 23H, Creatinine 1.44H, Estimat Glomerular Filtration Rate 47, BUN/Creatinine Ratio 16, Glucose Level 157H, Calcium Level 8.7, Total Bilirubin 0.7, Aspartate Amino Transf (AST/ SGOT) 86H, Alanine Aminotransferase (ALT/SGPT) 28, Alkaline Phosphatase 70, B- Type Natriuretic Peptide 429.5H, Total Protein 7.1, Albumin 3.5, Vancomycin Level Trough 13.1 Microbiology 11/21/16 Blood Culture - Preliminary, Resulted No growth Assessment/Plan Assessment/Plan Assess & Plan/Chief Complaint PNEUMONIA WITH SIMPLE SEPSIS CONGESTIVE HEART FAILURE ACUTE RENAL INSUFFICIENCY DIABETES MELLITUS VASCULAR DEMENTIA HYPERTENSION ESOPHAGEAL REFLUX BENIGN PROSTATIC HYPERTROPHY EDEMA PNEUMONIA WITH SIMPLE SEPSIS - SYMPTOMS IMPROVED, HOWEVER XRAY SHOWED POSSIBLE LOCULATED AREA OF CONSOLIDATION ON CHEST XRAY - WILL ORDER CT SCAN TODAY AND PT TO CONTINUE WITH ANTIBIOTIC OF ZOSYN ONLY - DISCONTINUED TODAY WERE LEVAQUIN AND VANCOMYCIN CONGESTIVE HEART FAILURE - ON LASIX WAS STOPPED YESTERDAY - MONITOR SYMPTOMS, ECHOCARDIOGRAM ON 11/20/16 SHOWED CONCENTRIC HYPERTROPHY, EF OF 40-45% ACUTE RENAL INSUFFICIENCY - IMPROVED ON PATIENT'S REPEAT LABS - FROM 1.92 DOWN TO 1.44 DIABETES MELLITUS - CONTINUE TO CHECK FSBS, SLIDING SCALE INSULIN VASCULAR DEMENTIA - SUPPORTIVE CARE - STOP ATIVAN - STARTED HALDOL, PT HAS HISTORY OF A 2-3 WEEK STAY IN [facility] ABOUT 4 MONTHS PREVIOUS TO HIS ADMISSION TO [facility] IN [place]ULY. HYPERTENSION - BLOOD PRESSURE LOW AT THIS TIME - HOLD HOME COREG - WILL RESTART ONCE HIS BLOOD PRESSURE INCREASES. ESOPHAGEAL REFLUX - RESTARTED PROTONIX. BENIGN PROSTATIC HYPERTROPHY - RESTART HIS FLOMAX. EDEMA - RESOLVED PT IS ON DVT PROPHYLAXIS - LOVENOX AND WILL USE COMPRESSION SOCKS SINCE HIS LEGS HAVE BEEN RESTLESS. I HAVE TALKED TO HIS DAUGHTER AND SHE REPORTS THAT HER FATHER IS A DNR/DNI Clinical Quality Measures DVT/VTE Risk/Contraindication: Risk Factor Score Per Nursin RFS Level Per Nursing on Admit: 4+=Very High ELISE JUNIOR MD Nov 23, 2016 08:37
[2016-11-23] MEDS: VANCOMYCIN 1250 MG/NS 250 ML IVPB IV SCH ×2 (08:42)
--- NOTE | 2016-11-23 09:16 | Physician Query Clarification ---
PQ-Further Specificity Admission/Discharge Admission Date: Nov 19, 2016 at 21:00 Discharge Date: The medical record reflects the following clinical scenario: History/Risk Factors: Hypertensive Heart Disease with CHF Clinical Findings: CHF exacerbation per Dr. Talley in ED. Edema documented BNP 413.4 and 494.9 Echo summary:Left ventricle: The cavity size is normal. Wall thickness is increased. There is concentric hypertrophy. Systolic function is mildly reduced. The estimated EF is 40-45%, by visual assessment. Mild diffuse hypokinesis, Doppler parameters are consistent with abnormal left ventricular relaxation( grade 1 diastolic dysfunction) Treatment: IV Lasix 40 mg Question: Can you further specify diagnosis/condition per the clinical indicators above? Please document below. 1. a. Acute diastolic congestive heart failure. b. Acute combined systolic and diastolic congestive heart failure. 2. congestive heart failure unspecified. 3. Other, with explanation of the clinical findings. 4. Clinically undetermined, no explanation for the clinical findings. PHYSICIAN RESPONSE Can you specify per above: 1 Explanation/Clinical Findings ACUTE ON CHRONIC CONGESTIVE HEART FAILURE - COMBINED TYPE In responding to this query, please exercise your independent professional judgment. The purpose of this communication is to more accurately reflect the complexity of your patients condition. The fact that a question is asked does not imply that any particular answer is desired or expected. Thank you for your timely response to this clarification. Requestors name: Lore Aguilar [facility] Phone # ext [phone] or [phone] THIS PHYSICIAN QUERY FORM IS A PERMANENT PART OF THE MEDICAL RECORD LORE AGUILAR Nov 23, 2016 09:16 ELISE JUNIOR MD Nov 24, 2016 17:56
--- NOTE | 2016-11-23 09:31 | Physician Query Clarification ---
PQ-Uncertain Diagnosis Admission/Discharge Admission Date: Nov 19, 2016 at 21:00 Discharge Date: The medical record reflects the following clinical scenario: History/Risk Factors: Sepsis Respiratory distress Clinical Findings: 11/19 chest xray showed dense consolidated infiltrates right mid lung and left lung base with more patchy airspace disease seen at right lung base. Per Dr. Talley-ED physician-Recently diagnosed with possible aspiration pneumonia and being treated with Clindamycin Treatment: Admitted on Clindamycin HCI 300mg. Orders for pneumonia protocol continue with treatment-IV Vancomycin and Albuterol inhalation treatments. Question: Is Aspiration Pneumonia a clinically valid diagnosis? Aspiration Pneumonia was documented in the ED record by Dr. Talley with no further documentation in the medical record. Please document a response below. PHYSICIAN RESPONSE Diagnosis clinically valid: Other, explanation/clinical finding (NOT ASPIRATION PNEUMONIA - IT IS COMMUNITY ACQUIRED PNEUMONIA) In responding to this query, please exercise your independent professional judgment. The purpose of this communication is to more accurately reflect the complexity of your patients condition. The fact that a question is asked does not imply that any particular answer is desired or expected. Thank you for your timely response to this clarification. Requestors name: Lore Aguilar [facility] Phone # ext [phone] or [phone] THIS PHYSICIAN QUERY FORM IS A PERMANENT PART OF THE MEDICAL RECORD LORE AGUILAR Nov 23, 2016 09:31 ELISE JUNIOR MD Nov 24, 2016 17:56
[2016-11-23] MEDS: PANTOPRAZOLE 40 MG/10 ML (PROTONIX) VIAL IV SCH (10:06)
[2016-11-23] MEDS: SERTRALINE 50 MG (ZOLOFT) TABLET PO SCH (10:06)
[2016-11-23] MEDS: ASPIRIN E.C. 81 MG (ECOTRIN) TAB PO SCH (10:07)
[2016-11-23] MEDS: POLYETHYLENE GLYCOL 17 GM (MIRALAX) PACK PO SCH (10:07)
[2016-11-23] MEDS: LORATADINE (CLARITIN) 10 MG TAB PO SCH (10:07)
[2016-11-23] MEDS: RIVASTIGMINE 4.6 MG PATCH (EXELON) TD SCH (10:08)
[2016-11-23] MEDS: RIVASTIGMINE PATCH REMOVAL TP SCH (10:08)
--- NOTE | 2016-11-23 11:20 | Speech Therapy Progress Note ---
Therapy Progress Note The speech pathology re-attempted the dysphagia evaluation on this date. Prior to attempt, the speech pathology discussed the patient with his RN, Angy. Per Angy, the patient is not demonstrating any difficulty swallowing ans has consumed a regular diet with thin liquids since 11/21/16, without difficulty (signs/symptoms of aspiration). The RN stated the swallow evaluation is no longer necessary and can be cancelled. The speech pathologist will cancel the consultation at this time. The RN was asked to re-consult the Speech Pathologist with any additional swallowing concerns. Thank you for this referral. MAYUR ESPOSITO Nov 23, 2016 11:20
[2016-11-23] MEDS: ENOXAPARIN 40 MG/0.4 ML (LOVENOX) SYR SC SCH (11:54)
[2016-11-23 12:05] VITALS: BP 112/67
[2016-11-23] MEDS: NS IV 1000 ML 1,000 ML IV SCH (13:11)
--- NOTE | 2016-11-23 16:21 | Diagnostic Imaging Report ---
PROCEDURE: CT chest without contrast. TECHNIQUE: Multiple contiguous axial images were obtained through the chest without the use of intravenous contrast. INDICATION: Loculated effusion in the right lung. FINDINGS: There is a loculated effusion in the right major fissure and small component of right effusion. There is a small left pleural effusion with thickened pleural lining similar to 04/28/2015. Groundglass opacities in the lungs are seen with septal thickening, in addition to the effusions are suggestive of pulmonary vascular congestion presumably cardiac related. The heart size is enlarged. Extensive coronary artery calcifications are seen. The thoracic aorta is normal in caliber. There is no mediastinal mass. There are calcified right paratracheal lymph nodes and right hilar lymph nodes as well. No enlarged noncalcified lymph nodes seen. Sections in the upper abdomen demonstrate a suture line along the distal stomach. Correlate with surgical history. The osseous structures demonstrate old fractures in the left upper lateral rib cage, healed with deformity. IMPRESSION: 1. There are loculated effusions in the right major fissure and small right free effusion. 2. Stable small left effusion unchanged from April 2015. 3. Groundglass opacities and septal thickening are suggestive of pulmonary vascular congestion. Dictated by: Dictated on workstation # [id number]
[2016-11-23 16:52] VITALS: BP 118/61
[2016-11-23] MEDS: ALFUZOSIN HCL 10 MG TAB (UROXATRAL) PO SCH (17:59)
[2016-11-23 20:42] VITALS: BP 99/55
[2016-11-23] MEDS: ATORVASTATIN 20 MG (LIPITOR) TABLET PO SCH (20:57)
[2016-11-23] MEDS: inSUlin DETERMIR 1 UNIT/0.01 ML (LEVEMIR) CHARGE PER UNIT SQ SCH (20:58)
[2016-11-24 00:08] VITALS: BP 102/56
[2016-11-24] MEDS: RT-ALBUTEROL/IPRATROPIUM 3 ML (DUONEB) VIAL IH SCH ×2 (03:00→08:50)
[2016-11-24 03:11] VITALS: BP 112/57
[2016-11-24] MEDS: PIPERACILLIN SODIUM/TAZOBACTAM 4.5 GM in NS (IVPB) 100 ML IV SCH ×2 (03:21→15:34)
[2016-11-24] MEDS: inSUlin (REGULAR) HUMAN 1 UNIT/0.01 ML (CHARGE PER UNIT) SC SCH ×2 (06:30→11:55)
[2016-11-24 06:58] LABS: MEAN PLATELET VOLUME 9.8 FL (7.4-10.4); RED BLOOD COUNT 4.03 10^6/uL (4.35-5.85); RED CELL DISTRIBUTION WIDTH 13.1 % (10.0-14.5); WHITE BLOOD COUNT 6.1 10^3/uL (4.3-11.0)
[2016-11-24 07:26] LABS: ALANINE AMINOTRANSFERASE 30 U/L (0-55); ALBUMIN 3.5 GM/DL (3.2-4.5); ANION GAP 12 MMOL/L (5-14); ASPARTATE AMINO TRANSFERASE 81 U/L (5-34); BILIRUBIN,TOTAL 0.6 MG/DL (0.1-1.0); BLOOD UREA NITROGEN 18 MG/DL (7-18); BUN/CREATININE RATIO 16 (0-20); CALCIUM 9.2 MG/DL (8.5-10.1); CARBON DIOXIDE 25 MMOL/L (21-32); CHLORIDE 103 MMOL/L (98-107); CREATININE SERUM 1.15 MG/DL (0.60-1.30); GFR ESTIMATED > 60; GLUCOSE 74 MG/DL (70-105); HEMOLYSIS 9 (-100-29); ICTERUS 0.4 (-100-1.9); LIPEMIA -1 (-100-49); POTASSIUM 3.9 MMOL/L (3.6-5.0); SODIUM 140 MMOL/L (135-145); TOTAL PROTEIN 7.2 GM/DL (6.4-8.2)
[2016-11-24 08:00] VITALS: BP 114/57
--- NOTE | 2016-11-24 08:34 | Diagnostic Imaging Report ---
INDICATION: Confusion, pneumonia. COMPARISON: 11/22. FINDINGS: Bilateral infiltrates and likely elements of basilar and interfissural pleural fluid are unchanged. Mild cardiomegaly is unchanged. No pneumothorax. Right chest wall deformity is unchanged. IMPRESSION: No significant change in chest wall deformities and bilateral pleural parenchymal opacities with mild cardiomegaly. Dictated by: Dictated on workstation # [id number]
[2016-11-24] MEDS ORDERED: ALBU2.5V4 IH (09:13)
[2016-11-24] MEDS ORDERED: AMOX-358 PO (09:13)
[2016-11-24] MEDS ORDERED: LACT1CAP87 PO (09:13)
--- NOTE | 2016-11-24 09:17 | Discharge Inst-Skilled Nursing ---
Discharge Inst-Skilled NF Patient Instructions Patient Problems: pneumonia chf dementia diabetes mellitus pancreatic insufficiency Consult/Follow Up/Orders Skilled NF Admit to: previous long term- [facility] Certification (SNF) I certify that SNF services are required to be given on an inpatient basis because of the above named patient's need for detention care on a continuing basis for the conditions(s) for which he/she was receiving inpatient hospital services prior to his/her transfer to the SNF. Senior Care Facility Order: Nursing Services, Physical Therapy-Evaluate & Treat Discharge Diet: ADA Diet Daily Activity as Tolerated: Yes New & Resume Previous Orders Elise Garcia Nov 24, 2016 09:16 Medication List: Active Scripts Active Acidophilus Lactobacilli (Lactobacillus Acidophilus) 1 Each Capsule 1 Each PO TID 30 Days Augmentin 875-125 Tablet (Amoxicillin/Potassium Clav) 1 Each Tablet 1 Each PO BID 7 Days Albuterol Sulfate 2.5 Mg/3 Ml Vial.neb 2.5 Mg IH RTQ4HR PRN 30 Days scheduled treatment tid x 5 days then prn shortness of breath Reported Lantus (Insulin Glargine,Hum.rec.anlog) 100 Unit/1 Ml Vial 50 Units SQ HS Atorvastatin Calcium 20 Mg Tablet 20 Mg PO HS Trazodone HCl 50 Mg Tablet 50 Mg PO HS Melatonin 3 mg Tablet (Melatonin/Pyridoxine) 1 Each Tablet 3 Mg PO HS Novolog (Insulin Aspart) 100 Unit/1 Ml Susp 10 Units SQ TIDWM Omeprazole 20 Mg Capsule. 20 Mg PO DAILY Cetirizine HCl 10 Mg Tablet 10 Mg PO DAILY Sertraline HCl 25 Mg Tablet 25 Mg PO DAILY Rivastigmine 1 Each Patch.td24 4.6 Mg TD DAILY Lantus (Insulin Glargine,Hum.rec.anlog) 100 Unit/1 Ml Vial 38 Units SQ DAILY Zenpep 15,000 Units Capsule (Lipase/Protease/Amylase) 1 Each Capsule. 15, 000 Units PO TID Miralax (Polyethylene Glycol 3350) 17 Gm Powd.pack 17 Gm PO DAILY Tamsulosin HCl 0.4 Mg Cap.er.24h 0.4 Mg PO 1700 Aspir 81 (Aspirin) 81 Mg Tablet. 81 Mg PO DAILY Lab results: Laboratory Tests Test 11/23/16 10:47 11/23/16 16:32 11/23/16 20:48 11/24/16 06:35 Range/Units Glucometer 167 H 357 H 306 H 71 70-110 MG/DL Sodium Level 140 135-145 MMOL/L Potassium Level 3.9 3.6-5.0 MMOL/L Chloride Level 103 98-107 MMOL/L Carbon Dioxide Level 25 21-32 MMOL/L Anion Gap 12 5-14 MMOL/L Blood Urea Nitrogen 18 7-18 MG/DL Creatinine 1.15 0.60-1.30 MG/DL Estimat Glomerular Filtration Rate > 60 BUN/Creatinine Ratio 16 0-20 Glucose Level 74 70-105 MG/DL Calcium Level 9.2 8.5-10.1 MG/DL Total Bilirubin 0.6 0.1-1.0 MG/DL Aspartate Amino Transf (AST/SGOT) 81 H 5-34 U/L Alanine Aminotransferase (ALT/SGPT) 30 0-55 U/L Alkaline Phosphatase 64 40-136 U/L Total Protein 7.2 6.4-8.2 GM/DL Albumin 3.5 3.2-4.5 GM/DL Test 11/24/16 06:39 Range/Units White Blood Count 6.1 4.3-11.0 10^3/uL Red Blood Count 4.03 L 4.35-5.85 10^6/uL Hemoglobin 11.1 L 13.3-17.7 G/DL Hematocrit 35 L 40-54 % Mean Corpuscular Volume 87 80-99 FL Mean Corpuscular Hemoglobin 28 25-34 PG Mean Corpuscular Hemoglobin Concent 32 32-36 G/DL Red Cell Distribution Width 13.1 10.0-14.5 % Platelet Count 134 130-400 10^3/uL Mean Platelet Volume 9.8 7.4-10.4 FL My orders: Orders - ELISE GARCIA MD Attending Discharge (11/24/16 09:14) ELISE GARCIA MD Nov 24, 2016 09:17
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
[2016-11-24] MEDS: NS IV 1000 ML 1,000 ML IV SCH (09:38)
[2016-11-24] MEDS: SERTRALINE 50 MG (ZOLOFT) TABLET PO SCH (09:38)
[2016-11-24] MEDS: PANTOPRAZOLE 40 MG/10 ML (PROTONIX) VIAL IV SCH (09:38)
[2016-11-24] MEDS: ASPIRIN E.C. 81 MG (ECOTRIN) TAB PO SCH (09:39)
[2016-11-24] MEDS: LIPASE/AMYLASE/PROTEASE (PANCRELIPASE) 5,000 UNITS CAP PO SCH ×2 (09:39→12:55)
[2016-11-24] MEDS: POLYETHYLENE GLYCOL 17 GM (MIRALAX) PACK PO SCH (09:39)
[2016-11-24] MEDS: LORATADINE (CLARITIN) 10 MG TAB PO SCH (09:39)
[2016-11-24] MEDS: RIVASTIGMINE 4.6 MG PATCH (EXELON) TD SCH (09:41)
[2016-11-24] MEDS: RIVASTIGMINE PATCH REMOVAL TP SCH (09:41)
[2016-11-24] MEDS: ENOXAPARIN 40 MG/0.4 ML (LOVENOX) SYR SC SCH (12:55)
[2016-11-24 13:10] VITALS: BP 114/57
--- OUTSIDE RECORDS SUMMARY | 2016-11-25 08:55 | XMS REPORT ---
Author MYKEL Ceja Organization [employer] Address Unknown Phone Unavailable Care Team Providers Care Yoga Coordinator Name Role Phone MYKEL RAMOS CP Unavailable Allergies No Known Allergies Problems Problem Type Condition Code Onset Dates Condition Status Problem Coronary disease I25.10 Active Problem Dementia F03.90 Active Problem Diabetes E11.9 Active Medications No Known Medications Results No Known Results Summary Purpose [employer] Submission
--- OUTSIDE RECORDS SUMMARY | 2016-11-25 08:55 | XMS REPORT ---
Author MYKEL Ceja Organization [employer] Address Unknown Phone Unavailable Care Team Providers Care Radio Frequency Engineer Name Role Phone MYKEL RAMOS CP Unavailable Allergies No Known Allergies Problems Problem Type Condition Code Onset Dates Condition Status Problem Diabetes E11.9 Active Problem Coronary disease I25.10 Active Problem Systolic heart failure I50.20 Active Problem Dementia F03.90 Active Medications Medication Code System Code Instructions Start Date End Date Status Dosage Flomax [facility] [address]-38 0.4 MG Orally Once a day 1 capsule 30 minutes after the same meal each day Furosemide [facility] [address]-90 40 MG TAKE ONE TABLET BY MOUTH ONCE DAILY Pantoprazole Sodium [facility] 31848529292 40 MG Oral Feb 17, 2016 TAKE ONE TABLET BY MOUTH ONCE DAILY Results No Known Results Summary Purpose [employer] Submission
--- OUTSIDE RECORDS SUMMARY | 2016-11-25 08:55 | XMS REPORT ---
Author MYKEL Ceja [facility] [employer] Address Unknown Phone Unavailable Care Team Providers Care Manager Environmental Name Role Phone MYKEL RAMOS Unavailable Allergies, Adverse Reactions, Alerts Substance Reaction Event Type N.K.D.A. Info Not Available Non Drug Allergy Problems Problem Type Condition Code Onset Dates Condition Status Problem Diabetes E11.9 Active Problem Coronary disease I25.10 Active Problem Systolic heart failure I50.20 Active Assessment Coronary disease I25.10 Active Assessment Systolic heart failure I50.20 Active Problem Dementia F03.90 Active Assessment Diabetes E11.9 Active Medications Medication Code System Code Instructions Start Date End Date Status Dosage Flomax [facility] [address]-26 0.4 MG Orally Once a day 1 capsule 30 minutes after the same meal each day Klor-Con 10 [facility] [address]-13 10 MEQ Orally Once a day 1 tablet Protonix [facility] [address]-31 40 MG Orally Once a day 1 tablet Celexa [facility] [address]-76 20 MG Orally Once a day 1 tablet Metamucil [facility] [address]317 30.9 % Orally not defined Ticagrelor [facility] [address]-63 90 MG Orally Twice a day 1 tablet Coreg [facility] [address]-28 3.125 MG Orally 2 times a day not defined Pravastatin Sodium [facility] [address]-98 20 MG Orally Once a day 1 tablet NovoLog [facility] [address]-35 100 UNIT/ML Subcutaneous 20 in Am and PM, 25 with lunch and 20 in om Lantus [facility] [address]-18 100 UNIT/ML Subcutaneous 2 times a day 20 , units at 0800, 50 units at 8 pm Aspir-81 [facility] [address]-75 81 MG Orally Once a day 1 tablet Multivital [facility] [address]666 Orally not defined Calcium 1000 + D [facility] 84145-23935 1000-800 MG-UNIT Orally not defined MiraLax [facility] [address]-74 17 gm/dose Orally Once a day 17 grams mixed in 8 oz of water or juice Lasix [facility] [address]-87 40 MG Orally Once a day 1 tablet Procedures Procedure Coding System Code Date Office Visit, Est Pt., Level 3 CPT-4 21021 May 24, 2015 [facility] VISIT ESTABLISHED PATIENT CPT-4 G0467 May 24, 2015 Vital Signs Date/Time: May 24, 2015 Temperature 98.4 F Weight 172 lbs Height 69 in BMI 25.40 Index Blood Pressure Diastolic 52 mmHg Blood Pressure Systolic 108 mmHg Cardiac Monitoring Heart Rate 68 bpm Results No Known Results Summary Purpose [employer] Submission
--- OUTSIDE RECORDS SUMMARY | 2016-11-25 08:55 | XMS REPORT ---
Author ARVIND Ansari [facility] e[employer] Address Unknown Phone Unavailable Care Team Providers Care Heel Coverer Name Role Phone ARVIND CRAWFORD Unavailable Allergies No Known Allergies Problems Problem Type Condition Code Onset Dates Condition Status Problem Diabetes E11.9 Active Problem Coronary disease I25.10 Active Problem Systolic heart failure I50.20 Active Problem Dementia F03.90 Active Medications Medication Code System Code Instructions Start Date End Date Status Dosage Aspir-81 [facility] [address]-64 81 MG Orally Once a day 1 tablet Test strips [facility] 0 ... Accucheck Liane Plus 4 times a day Jul 08, 2015 1 test strip MiraLax [facility] [address]-18 17 gm/dose Orally Once a day 17 grams mixed in 8 oz of water or juice Coreg [facility] [address]-50 3.125 MG Orally 2 times a day 1 tablet Pancrelipase (Wtr-Lzpt-Wrxu) [facility] [address]-73 5000 UNIT Orally 3 times a day Apr 29, 2016 3 caps Klor-Con 10 [facility] [address]-92 10 MEQ Orally Once a day 1 tablet Flomax [facility] [address]-26 0.4 MG Orally Once a day 1 capsule 30 minutes after the same meal each day Clindamycin HCl [facility] [address]-71 300 MG Orally every 6 hrs for 10 days Mar 06, 2016 Mar 16, 2016 1 capsule Furosemide [facility] [address]-44 40 mg Orally Once a day 1 tablet Protonix [facility] [address]-94 40 mg Orally Once a day 1 tablet Calcium 1000 + D [facility] 93126-02164 1000-800 MG-UNIT Orally 2 times a day 1 tablet Lantus [facility] [address]-60 100 UNIT/ML Subcutaneous Once a day 15 u BD Insulin Syringe [facility] 8290-344837 30G X 1/2 4 times a day Jul 08, 2015 1 syringe as directed BD Insulin Syringe [facility] 8290-679261 31G X 5/16 sub Q 4 times a day Jul 08, 2015 1 syringe Celexa [facility] [address]-94 20 mg Orally Once a day 1 tablet Results No Known Results Summary Purpose [employer]Works Submission
--- OUTSIDE RECORDS SUMMARY | 2016-11-25 08:55 | XMS REPORT ---
Author MYKEL Ceja Organization [employer] Address Unknown Phone Unavailable Care Team Providers Care Plumber Supervisor Name Role Phone MYKEL RAMOS CP Unavailable Allergies No Known Allergies Problems Problem Type Condition Code Onset Dates Condition Status Problem Coronary disease I25.10 Active Problem Dementia F03.90 Active Problem Diabetes E11.9 Active Medications No Known Medications Results No Known Results Summary Purpose [employer] Submission
--- OUTSIDE RECORDS SUMMARY | 2016-11-25 08:56 | XMS REPORT ---
Author MYKEL Ceja Organization [employer] Address Unknown Phone Unavailable Care Team Providers Care [place] [place] Manager Name Role Phone MYKEL RAMOS CP Unavailable Allergies No Known Allergies Problems Problem Type Condition Code Onset Dates Condition Status Problem Diabetes E11.9 Active Problem Coronary disease I25.10 Active Problem Systolic heart failure I50.20 Active Problem Dementia F03.90 Active Medications Medication Code System Code Instructions Start Date End Date Status Dosage Pancrelipase (Qep-Yery-Qnuy) [facility] [address]-97 5000 UNIT Orally 3 times a day Apr 29, 2016 3 caps Results No Known Results Summary Purpose eClinicalWorks Submission
--- OUTSIDE RECORDS SUMMARY | 2016-11-25 08:56 | XMS REPORT ---
Author MYKEL Ceja [facility] [place] e[employer] Address Unknown Phone Unavailable Care Team Providers Care Director Of Home Economics Name Role Phone MKYEL RAMOS CP Unavailable Allergies No Known Allergies Problems Problem Type Condition Code Onset Dates Condition Status Problem Coronary disease I25.10 Active Problem Dementia F03.90 Active Problem Diabetes E11.9 Active Medications No Known Medications Results No Known Results Summary Purpose eClinicalWorks Submission
--- OUTSIDE RECORDS SUMMARY | 2016-11-25 08:56 | XMS REPORT ---
Author MYKEL Ceja [facility] eClinical[employer] Address Unknown Phone Unavailable Care Team Providers Care Foley Artist Name Role Phone MYKEL RAMOS Unavailable Allergies, Adverse Reactions, Alerts Substance Reaction Event Type N.K.D.A. Info Not Available Non Drug Allergy Problems Problem Type Condition Code Onset Dates Condition Status Problem Diabetes E11.9 Active Problem Coronary disease I25.10 Active Problem Systolic heart failure I50.20 Active Assessment Dementia F03.90 Active Problem Dementia F03.90 Active Assessment Diabetes E11.9 Active Medications Medication Code System Code Instructions Start Date End Date Status Dosage BD Insulin Syringe [facility] 8290-164084 31G X 5/16 sub Q 4 times a day Jul 08, 2015 1 syringe MiraLax [facility] [address]-13 17 gm/dose Orally Once a day 17 grams mixed in 8 oz of water or juice Flomax [facility] [address]-33 0.4 MG Orally Once a day 1 capsule 30 minutes after the same meal each day Protonix [facility] [address]-71 40 mg Orally Once a day [address] tablet Coreg [facility] [address]-03 3.125 MG Orally 2 times a day 1 [address]lexa [facility] [address]-83 20 mg Orally Once a day 1 tablet Pancrelipase (Tbm-Cnmq-Keoh) [facility] [address]-89 5000 UNIT Orally 3 times a day Apr 29, 2016 3 caps Aspir-[address] [facility] [address]-75 81 MG Orally Once a day 1 tablet Pravastatin Sodium [facility] [address]-95 40 mg Orally Once a day 1 tablet BD Insulin Syringe [facility] 8290-941220 30G X 1/2 4 times a day Jul 08, 2015 1 syringe as directed Test strips [facility] 0 ... Accucheck Liane Plus 4 times a day Jul 08, 2015 1 test strip Clindamycin HCl [facility] [address]-32 300 MG Orally every 6 hrs for 10 days Mar 06, 2016 Mar 16, 2016 1 capsule Calcium 1000 + D [facility] [address]679 1000-800 MG-UNIT Orally 2 times a day 1 tablet [address]antus [facility] [address]-92 100 UNIT/ML Subcutaneous Once a day 15 u Furosemide [facility] [address]-93 40 mg Orally Once a day 1 tablet Klor-Con [address] [facility] [address]-17 10 MEQ Orally Once a day 1 tablet Procedures Procedure Coding System Code Date [facility] VISIT ESTABLISHED PATIENT CPT-4 G0467 Mar 16, 2016 Office Visit, Est Pt., Level 3 CPT-4 27493 Mar 16, 2016 GLYCATED HEMOGLOBIN TEST CPT-4 80289 Mar 16, 2016 Vital Signs Date/Time: Mar 16, 2016 Cardiac Monitoring Heart Rate 74 bpm Weight 166 lbs Height 69 in BMI 24.51 Index Blood Pressure Diastolic 62 mmHg Blood Pressure Systolic 100 mmHg Results No Known Results Summary Purpose eClinicalWorks Submission
--- OUTSIDE RECORDS SUMMARY | 2016-11-25 08:56 | XMS REPORT ---
Author MYKEL Ceja Organization [employer] Address Unknown Phone Unavailable Care Team Providers Care Network Control Supervisor Name Role Phone MYKEL RAMOS CP Unavailable Allergies No Known Allergies Problems Problem Type Condition Code Onset Dates Condition Status Problem Coronary disease I25.10 Active Problem Dementia F03.90 Active Problem Diabetes E11.9 Active Medications No Known Medications Results No Known Results Summary Purpose eClinicalWorks Submission
--- OUTSIDE RECORDS SUMMARY | 2016-11-25 08:56 | XMS REPORT ---
Author MYKEL Ceja Organization [employer] Address Unknown Phone Unavailable Care Team Providers Care Video Software Engineer Name Role Phone MYKEL RAMOS CP Unavailable Allergies No Known Allergies Problems Problem Type Condition Code Onset Dates Condition Status Problem Coronary disease I25.10 Active Problem Dementia F03.90 Active Problem Diabetes E11.9 Active Medications Medication Code System Code Instructions Start Date End Date Status Dosage Ticagrelor [facility] [address]-96 90 MG Orally Twice a day 1 tablet Results No Known Results Summary Purpose eClinicalWorks Submission
--- OUTSIDE RECORDS SUMMARY | 2016-11-25 08:56 | XMS REPORT ---
Author MYKEL Ceja Organization [employer] Address Unknown Phone Unavailable Care Team Providers Care Reconciliation Accountant Name Role Phone MYKEL RAMOS CP Unavailable Allergies No Known Allergies Problems Problem Type Condition Code Onset Dates Condition Status Problem Diabetes E11.9 Active Problem Coronary disease I25.10 Active Problem Systolic heart failure I50.20 Active Problem Dementia F03.90 Active Medications No Known Medications Results No Known Results Summary Purpose eClinicalWorks Submission
--- OUTSIDE RECORDS SUMMARY | 2016-11-25 08:57 | XMS REPORT ---
Author MYKEL Ceja Organization [employer] Address Unknown Phone Unavailable Care Team Providers Care Finance Lead Name Role Phone MYKEL RAMOS CP Unavailable Allergies No Known Allergies Problems Problem Type Condition Code Onset Dates Condition Status Problem Diabetes E11.9 Active Problem Coronary disease I25.10 Active Problem Systolic heart failure I50.20 Active Problem Dementia F03.90 Active Medications No Known Medications Results No Known Results Summary Purpose eClinicalWorks Submission
--- OUTSIDE RECORDS SUMMARY | 2016-11-25 08:57 | XMS REPORT ---
Author MYKEL Ceja Organization [employer] Address Unknown Phone Unavailable Care Team Providers Care Senior Consultant Name Role Phone MYKEL RAMOS CP Unavailable Allergies No Known Allergies Problems Problem Type Condition Code Onset Dates Condition Status Problem Diabetes E11.9 Active Problem Coronary disease I25.10 Active Problem Systolic heart failure I50.20 Active Problem Dementia F03.90 Active Medications Medication Code System Code Instructions Start Date End Date Status Dosage Coreg [facility] [address]-42 3.125 MG Orally 2 times a day 1 tablet Pravastatin Sodium [facility] [address]-15 40 mg Orally Once a day 1 tablet Results No Known Results Summary Purpose eClinicalWorks Submission
--- OUTSIDE RECORDS SUMMARY | 2016-11-25 08:57 | XMS REPORT | Continuity of Care Document ---
Author Author [facility] Organization [facility] Address Unknown Phone Unavailable Allergies Active Description Code Type Severity Reaction Onset Reported/Identified Relationship to Patient Clinical Status Yes No Allergy Information Available [id number] Drug Allergy Unknown N/A 02/28/2015 Yes No Known Drug Allergies [id number] Drug Allergy Unknown N/ A 03/14/2016 Medications Problems Date Dx Coded Attending Type Code Diagnosis Diagnosed By 02/28/2015 JC MONTESINOS DO Ot 250.00 DIAB [place] WO COMPL, TYPE II OR UNSPEC TY 02/28/2015 JC MONTESINOS DO Ot 275.2 DIS MAGNESIUM METABOLISM 02/28/2015 JC MONTESINOS DO Ot 401.9 HYPERTENSION NOS 02/28/2015 JC MONTESINOS DO Ot 410.91 ACUTE MYOCARD INFARCT,UNSPEC SITE,INITIA 02/28/2015 JC MONTESINOS DO Ot 518.81 ACUTE RESPIRATORY FAILURE 02/28/2015 JC MONTESINOS DO Ot 785.51 CARDIOGENIC SHOCK 02/28/2015 JC MONTESINOS DO Ot 786.50 CHEST PAIN NOS 02/28/2015 JC MONTESINOS DO Ot V58.67 LONG-TERM (CURRENT) USE OF INSULIN 03/12/2015 ELÍAS HUNTER MD Ot I21.3 03/12/2015 ELÍAS HUNTER MD Ot I25.10 03/12/2015 ELÍAS HUNTER MD Ot I50.9 03/12/2015 ELÍAS HUNTER MD, Ot J18.9 03/12/2015 ELÍAS HUNTER MD Ot Z66 03/12/2015 ELÍAS HUNTER MD Ot Z98.61 03/13/2015 ELÍAS HUNTER MD Ot E11.9 TYPE 2 DIABETES MELLITUS WITHOUT COMPLIC 03/13/2015 ELÍAS HUNTER MD Ot E87.1 HYPO-OSMOLALITY AND HYPONATREMIA 03/13/2015 ELÍAS HUNTER MD Ot F03.90 UNSPECIFIED DEMENTIA WITHOUT BEHAVIORAL 03/13/2015 ELÍAS HUNTER MD, Ot H91.90 UNSPECIFIED HEARING LOSS, UNSPECIFIED EA 03/13/2015 ELÍAS HUNTER MD, Ot I21.3 ST ELEVATION (STEMI) MYOCARDIAL INFARCTI 03/13/2015 ELÍAS HUNTER MD, Ot I25.10 ATHSCL HEART DISEASE OF [place] CORONARY 03/13/2015 ELÍAS HUNTER MD, Ot I50.23 ACUTE ON CHRONIC SYSTOLIC (CONGESTIVE) H 03/13/2015 ELÍAS HUNTER MD, Ot I50.9 03/13/2015 ELÍAS HUNTER MD, Ot J18.9 PNEUMONIA, UNSPECIFIED ORGANISM 03/13/2015 ELÍAS HUNTER MD, Ot 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 03/13/2015 ELÍAS HUNTER MD, Ot K25.9 GASTRIC ULCER, UNSP ACUTE OR CHRONIC, 03/13/2015 ELÍAS HUNTER MD, Ot K29.60 OTHER GASTRITIS WITHOUT BLEEDING 03/13/2015 ELÍAS HUNTER MD, Ot K29.80 DUODENITIS WITHOUT BLEEDING 03/13/2015 ELÍAS HUNTER MD, Ot N17.0 ACUTE KIDNEY FAILURE WITH TUBULAR NECROS 03/13/2015 ELÍAS HUNTER MD, Ot Z66 DO NOT RESUSCITATE 03/13/2015 ELÍAS HUNTER MD, Ot Z79.4 HALF-WAY (CURRENT) USE OF INSULIN 03/13/2015 ELÍAS HUNTER MD, Ot Z87.891 PERSONAL HISTORY OF NICOTINE DEPENDENCE 03/13/2015 ELÍAS HUNTER MD, Ot Z98.61 CORONARY ANGIOPLASTY STATUS 03/15/2015 INNA BRINK MD Ot E11.9 TYPE 2 DIABETES MELLITUS WITHOUT COMPLIC 03/15/2015 INNA BRINK MD Ot E78.0 PURE HYPERCHOLESTEROLEMIA 03/15/2015 INNA BRINK MD Ot F03.90 UNSPECIFIED DEMENTIA WITHOUT BEHAVIORAL 03/15/2015 INNA BRINK MD Ot I10 ESSENTIAL (PRIMARY) HYPERTENSION 03/15/2015 INNA BRINK MD Ot I50.9 HEART FAILURE, UNSPECIFIED 03/15/2015 INNA BRINK MD Ot R41.82 ALTERED MENTAL STATUS, UNSPECIFIED 03/15/2015 INNA BRINK MD Ot Z79.4 HALF-WAY (CURRENT) USE OF INSULIN 03/15/2015 INNA BRINK MD Ot Z79.899 OTHER HALF-WAY (CURRENT) DRUG THERAPY 05/01/2015 RACHEL ERICKSON, MYKEL De La Cruz Ot E11.22 TYPE 2 DIABETES MELLITUS W DIABETIC SENIOR CONTROLS ENGINEER 05/01/2015 RACHEL ERICKSON, MYKEL De La Cruz Ot F03.90 UNSPECIFIED DEMENTIA WITHOUT BEHAVIORAL 05/01/2015 RACHEL ERICKSON, MYKEL De La Cruz Ot I25.10 ATHSCL HEART DISEASE OF [place] CORONARY 05/01/2015 RACHEL ERICKSON, MYKEL De La Cruz Ot I25.5 ISCHEMIC CARDIOMYOPATHY 05/01/2015 RACHEL ERICKSON, MYKEL De aL Cruz Ot I50.22 CHRONIC SYSTOLIC (CONGESTIVE) HEART FAIL 05/01/2015 MYKEL RAMOS MD Ot I50.23 05/01/2015 RACHEL ERICKSON, MYKEL De La Cruz Ot K21.9 GASTRO-ESOPHAGEAL REFLUX DISEASE WITHOUT 05/01/2015 RACHEL ERICKSON, MYKEL De La Cruz Ot 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 05/01/2015 RACHEL ERICKSON, MYKEL De La Cruz Ot K56.41 FECAL IMPACTION 05/01/2015 RACHEL ERICKSON, MYKEL De La Cruz Ot N17.9 ACUTE KIDNEY FAILURE, UNSPECIFIED 05/01/2015 RACHEL ERICKSON, MYKEL De La Cruz Ot N18.9 CHRONIC KIDNEY DISEASE, UNSPECIFIED 05/01/2015 RACHEL ERICKSON, MYKEL De La Cruz Ot R10.9 05/01/2015 RACHEL ERICKSON, MYKEL De La Cruz Ot R11.10 05/15/2015 RACHEL ERICKSON, MYKEL De La Cruz Ot E11.9 05/15/2015 RACHEL ERICKSON, MYKEL De La Cruz Ot E78.5 05/15/2015 RACHEL ERICKSON, MYKEL De La Cruz Ot I50.9 06/18/2015 RACHEL ERICKSON, MYKEL De La Cruz Ot I50.9 07/16/2015 Ot E11.649 TYPE 2 DIABETES MELLITUS WITH HYPOGLYCEM 07/16/2015 Ot F03.90 UNSPECIFIED DEMENTIA WITHOUT BEHAVIORAL 07/16/2015 Ot J18.9 PNEUMONIA, UNSPECIFIED ORGANISM 07/16/2015 Ot Z79.4 HALF-WAY (CURRENT) USE OF INSULIN 07/16/2015 Ot Z79.899 OTHER HALF-WAY (CURRENT) DRUG THERAPY 11/15/2015 TY ERICKSON, ARVIND Deluca Ot E11.22 TYPE 2 DIABETES MELLITUS W DIABETIC SENIOR CONTROLS ENGINEER 11/15/2015 ARVIND CRAWFORD MD, Ot E11.649 TYPE 2 DIABETES MELLITUS WITH HYPOGLYCEM 11/15/2015 ARVIND CRAWFORD MD Ot F03.90 UNSPECIFIED DEMENTIA WITHOUT BEHAVIORAL 11/15/2015 ARVIND CRAWFORD MD Ot I12.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 11/15/2015 ARVIND CRAWFORD MD Ot I25.10 ATHSCL HEART DISEASE OF [place] CORONARY 11/15/2015 ARVIND CRAWFORD MD Ot I50.22 CHRONIC SYSTOLIC (CONGESTIVE) HEART FAIL 11/15/2015 ARVIND CRAWFORD MD, Ot J18.9 PNEUMONIA, UNSPECIFIED ORGANISM 11/15/2015 ARVIND CRAWFORD MD, Ot N18.9 CHRONIC KIDNEY DISEASE, UNSPECIFIED 11/15/2015 ARVIND CRAWFORD MD Ot Z66 DO NOT RESUSCITATE 11/15/2015 ARVIND CRAWFORD MD, Ot 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 11/15/2015 ARVIND CRAWFORD MD, Ot Z87.891 PERSONAL HISTORY OF NICOTINE DEPENDENCE 11/19/2015 LEMUEL TRAORE DO, Ot E11.649 TYPE 2 DIABETES MELLITUS WITH HYPOGLYCEM 11/19/2015 LEMUEL TRAORE DO, Ot 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90 UNSPECIFIED HEARING LOSS, UNSPECIFIED EA 03/06/2016 ARVIND CRAWFORD MD Ot I12.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 03/06/2016 ARVIND CRAWFORD MD, Ot I25.10 ATHSCL HEART DISEASE OF [place] CORONARY 03/06/2016 ARVIND CRAWFORD MD, Ot I25.2 OLD MYOCARDIAL INFARCTION 03/06/2016 ARVIND CRAWFORD MD, Ot I50.22 CHRONIC SYSTOLIC (CONGESTIVE) HEART FAIL 03/06/2016 ARVIND CRAWFORD MD, Ot J44.9 CHRONIC OBSTRUCTIVE PULMONARY DISEASE, U 03/06/2016 ARVIND CRAWFORD MD, Ot J69.0 PNEUMONITIS DUE TO INHALATION OF FOOD AN 03/06/2016 ARVIND CRAWFORD MD, Ot K21.9 GASTRO-ESOPHAGEAL REFLUX DISEASE WITHOUT 03/06/2016 ARVIND CRAWFORD MD, Ot 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 03/06/2016 ARVIND CRAWFORD MD, Ot N18.9 CHRONIC KIDNEY DISEASE, UNSPECIFIED 03/06/2016 ARVIND CRAWFORD MD, Ot Z23 ENCOUNTER FOR IMMUNIZATION 03/06/2016 ARVIND CRAWFORD MD Ot Z66 DO NOT RESUSCITATE 03/06/2016 ARVIND CRAWFORD MD, Ot Z79.4 HALF-WAY (CURRENT) USE OF INSULIN 03/06/2016 AVRIND CRAWFORD MD, Ot Z87.820 PERSONAL HISTORY OF TRAUMATIC BRAIN INJU 03/06/2016 ARVIND CRAWFORD MD, Ot Z87.891 PERSONAL HISTORY OF NICOTINE DEPENDENCE 03/06/2016 ARVIND CRAWFORD MD, Ot Z95.5 PRESENCE OF CORONARY ANGIOPLASTY IMPLANT 03/14/2016 MICAELA OLIVIA MD Ot E11.65 TYPE 2 DIABETES MELLITUS WITH HYPERGLYCE 03/14/2016 MICAELA OLIVIA MD Ot F03.90 UNSPECIFIED DEMENTIA WITHOUT BEHAVIORAL 03/14/2016 MICAELA OLIVIA MD Ot I10 ESSENTIAL (PRIMARY) HYPERTENSION 03/14/2016 MICAELA OLIVIA MD Ot I25.10 ATHSCL HEART DISEASE OF [place] CORONARY 03/14/2016 MICAELA OLIVIA MD Ot I51.7 CARDIOMEGALY 03/14/2016 MICAELA OLIVIA MD Ot N28.9 DISORDER OF KIDNEY AND URETER, UNSPECIFI 03/14/2016 MICAELA OLIVIA MD Ot R41.82 ALTERED MENTAL STATUS, UNSPECIFIED 03/14/2016 MICAELA OLIVIA MD Ot 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 03/14/2016 MICAELA OLIVIA MD Ot Z79.82 HALF-WAY (CURRENT) USE OF ASPIRIN 03/14/2016 MICAELA OLIVIA MD Ot Z79.899 OTHER HALF-WAY (CURRENT) DRUG THERAPY 03/14/2016 MICAELA OLIVIA MD Ot Z95.5 PRESENCE OF CORONARY ANGIOPLASTY IMPLANT 03/16/2016 MICAELA OLIVIA MD Ot E11.65 TYPE 2 DIABETES MELLITUS WITH HYPERGLYCE 03/16/2016 MICAELA OLIVIA MD Ot F03.90 UNSPECIFIED DEMENTIA WITHOUT BEHAVIORAL 03/16/2016 MICAELA OLIVIA MD Ot I10 ESSENTIAL (PRIMARY) HYPERTENSION 03/16/2016 MICAELA OLIVIA MD Ot I25.10 ATHSCL HEART DISEASE OF [place] CORONARY 03/16/2016 MICAELA OLIVIA MD Ot I51.7 CARDIOMEGALY 03/16/2016 MICAELA OLIVIA MD Ot N28.9 DISORDER OF KIDNEY AND URETER, UNSPECIFI 03/16/2016 MICAELA OLIVIA MD Ot R41.82 ALTERED MENTAL STATUS, UNSPECIFIED 03/16/2016 MICAELA OLIVIA MD Ot 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 03/16/2016 MICAELA OLIVIA MD Ot Z79.82 BOAT CARPENTER MECHANIC (CURRENT) USE OF ASPIRIN 03/16/2016 MICAELA OLIVIA MD Ot Z79.899 OTHER HALF-WAY (CURRENT) DRUG THERAPY 03/16/2016 MICAELA OLIVIA MD Ot Z95.5 PRESENCE OF CORONARY ANGIOPLASTY IMPLANT 11/19/2016 MYKEL RAMOS MD Ot E11.9 TYPE 2 DIABETES MELLITUS WITHOUT COMPLIC 11/19/2016 MYKEL RAMOS MD Ot E78.5 HYPERLIPIDEMIA, UNSPECIFIED 11/19/2016 MYKEL RAMOS MD Ot I50.9 HEART FAILURE, UNSPECIFIED 11/19/2016 MYKEL RAMOS MD Ot I50.9 HEART FAILURE, UNSPECIFIED 11/23/2016 VERNON ERICKSON, ELISE Zimmerman Ot R06.00 DYSPNEA, UNSPECIFIED Procedures Results Test Result Range Complete blood count (CBC) with automated white blood cell (WBC) differential - 03/04/16 16:18 Blood leukocytes automated count (number/volume) 7.8 10*3/ uL 4.3-11.0 Blood erythrocytes automated count (number/volume) 4.68 10*6 /uL 4.35-5.85 Venous blood hemoglobin measurement (mass/volume) 13.7 g/dL 13.3-17.7 Blood hematocrit (volume fraction) 41 % 40-54 Automated erythrocyte mean corpuscular volume 87 [foz_us] 80-99 Automated erythrocyte mean corpuscular hemoglobin (mass per erythrocyte) 29 pg 25-34 Automated erythrocyte mean corpuscular hemoglobin concentration measurement ( mass/volume) 34 g/dL 32-36 Automated erythrocyte distribution width ratio 13.0 % 10.0-14.5 Automated blood platelet count (count/volume) 172 10*3/uL 130-400 Automated blood platelet mean volume measurement 10.0 [foz_ us] 7.4-10.4 Automated blood neutrophils/100 leukocytes 61 % 42-75 Automated blood lymphocytes/100 leukocytes 15 % 12-44 Blood monocytes/100 leukocytes 19 % 0-12 Automated blood eosinophils/100 leukocytes 4 % 0-10 Automated blood basophils/100 leukocytes 0 % 0-10 Blood neutrophils automated count (number/volume) 4.7 10*3 1.8-7.8 Blood lymphocytes automated count (number/volume) 1.2 10*3 1.0-4.0 Blood monocytes automated count (number/volume) 1.5 10*3 0.0-1.0 Automated eosinophil count 0.3 10*3/uL 0.0-0.3 Automated blood basophil count (count/volume) 0.0 10*3/uL 0.0-0.1 Capillary blood glucose measurement by glucometer (mass/volume) - 03/04/16 16: 18 Capillary blood glucose measurement by glucometer (mass/volume) 110 mg/dL 70-110 PT panel in platelet poor plasma by coagulation assay - 03/04/16 16:18 Prothrombin time (PT) in platelet poor plasma by coagulation assay 14.5 s 12.2-14.7 INR in platelet poor plasma or blood by coagulation assay 1.2 0.8-1.4 Activated partial thromboplastin time (aPTT) in platelet poor plasma bycoagulation assay - 03/04/16 16:18 Activated partial thromboplastin time (aPTT) in platelet poor plasma bycoagulation assay 33 s 24-35 Blood manual differential performed detection - 03/04/16 16:18 Blood monocytes/100 leukocytes 21 % NRG Manual blood segmented neutrophils/100 leukocytes 56 % NRG Blood band neutrophils/100 leukocytes 9 % NRG Manual blood lymphocytes/100 leukocytes 11 % NRG Manual eosinophils/100 leukocytes in nose 3 % NRG Manual blood basophils/100 leukocytes 0 % NRG Blood erythrocyte morphology finding identification NORMAL NRG Comprehensive metabolic panel - 03/04/16 16:18 Serum or plasma sodium measurement (moles/volume) 133 mmol/ L 135-145 Serum or plasma potassium measurement (moles/volume) 4.0 mmol/L 3.6-5.0 Serum or plasma chloride measurement (moles/volume) 95 mmol/ L 98-107 Carbon dioxide 27 mmol/L 21-32 Serum or plasma anion gap determination (moles/volume) 11 mmol/L 5-14 Serum or plasma urea nitrogen measurement (mass/volume) 45 mg/dL 7-18 Serum or plasma creatinine measurement (mass/volume) 1.43 mg /dL 0.60-1.30 Serum or plasma urea nitrogen/creatinine mass ratio 31 NRG Serum or plasma creatinine measurement with calculation of estimated glomerular filtration rate 48 NRG Serum or plasma glucose measurement (mass/volume) 116 mg/dL 70-105 Serum or plasma calcium measurement (mass/volume) 9.6 mg/dL 8.5-10.1 Serum or plasma total bilirubin measurement (mass/volume) 0.4 mg/dL 0.1-1.0 Serum or plasma alkaline phosphatase measurement (enzymatic activity/volume) 68 U/L 40-136 Serum or plasma aspartate aminotransferase measurement (enzymatic activity/ volume) 30 U/L 5-34 Serum or plasma alanine aminotransferase measurement (enzymatic activity/volume ) 22 U/L 0-55 Serum or plasma protein measurement (mass/volume) 7.5 g/dL 6.4-8.2 Serum or plasma albumin measurement (mass/volume) 3.7 g/dL 3.2-4.5 Magnesium - 03/04/16 16:18 Magnesium 1.9 mg/dL 1.8-2.4 Serum or plasma troponin i.cardiac measurement (mass/volume) - 03/04/16 16:18 Serum or plasma troponin i.cardiac measurement (mass/volume) < ng/mL <0.30 Serum or plasma amylase measurement (enzymatic activity/volume) - 03/04/16 16: 18 Serum or plasma amylase measurement (enzymatic activity/volume) 38 U/L 25-125 Lipase - 03/04/16 16:18 Lipase < U/L 8-78 Serum or plasma thyrotropin measurement by detection limit <=0.05 miu/l (units/ volume) - 03/04/16 16:18 Serum or plasma thyrotropin measurement by detection limit <=0.05 miu/l (units/ volume) 0.87 u[iU]/mL 0.35-4.94 Capillary blood glucose measurement by glucometer (mass/volume) - 03/04/16 17: 13 Capillary blood glucose measurement by glucometer (mass/volume) 199 mg/dL 70-110 Complete urinalysis with reflex to culture - 03/04/16 18:06 Urine color determination YELLOW NRG Urine clarity determination CLEAR NRG Urine pH measurement by test strip 6 5- 9 Specific gravity of urine by test strip 1.010 1.016-1.022 Urine protein assay by test strip, semi-quantitative 2+ NEGATIVE Urine glucose detection by automated test strip 2+ NEGATIVE Erythrocytes detection in urine sediment by light microscopy NEGATIVE NEGATIVE Urine ketones detection by automated test strip NEGATIVE NEGATIVE Urine nitrite detection by test strip NEGATIVE NEGATIVE Urine total bilirubin detection by test strip NEGATIVE NEGATIVE Urine urobilinogen measurement by automated test strip (mass/volume) NORMAL NORMAL Urine leukocyte esterase detection by dipstick NEGATIVE NEGATIVE Automated urine sediment erythrocyte count by microscopy (number/high power field) NONE NRG Automated urine sediment leukocyte count by microscopy (number/high power field ) NONE NRG Bacteria detection in urine sediment by light microscopy NONE NRG Squamous epithelial cells detection in urine sediment by light microscopy RARE NRG Crystals detection in urine sediment by light microscopy NONE NRG Casts detection in urine sediment by light microscopy NONE NRG Mucus detection in urine sediment by light microscopy NEGATIVE NRG Complete urinalysis with reflex to culture NO NRG Capillary blood glucose measurement by glucometer (mass/volume) - 03/04/16 18: 35 Capillary blood glucose measurement by glucometer (mass/volume) 343 mg/dL 70-110 Capillary blood glucose measurement by glucometer (mass/volume) - 03/04/16 20: 36 Capillary blood glucose measurement by glucometer (mass/volume) 281 mg/dL 70-110 Capillary blood glucose measurement by glucometer (mass/volume) - 03/05/16 05: 40 Capillary blood glucose measurement by glucometer (mass/volume) 236 mg/dL 70-110 Complete blood count (CBC) with automated white blood cell (WBC) differential - 03/05/16 06:55 Blood leukocytes automated count (number/volume) 8.6 10*3/ uL 4.3-11.0 Blood erythrocytes automated count (number/volume) 4.41 10*6 /uL 4.35-5.85 Venous blood hemoglobin measurement (mass/volume) 12.9 g/dL 13.3-17.7 Blood hematocrit (volume fraction) 38 % 40-54 Automated erythrocyte mean corpuscular volume 87 [foz_us] 80-99 Automated erythrocyte mean corpuscular hemoglobin (mass per erythrocyte) 29 pg 25-34 Automated erythrocyte mean corpuscular hemoglobin concentration measurement ( mass/volume) 34 g/dL 32-36 Automated erythrocyte distribution width ratio 12.9 % 10.0-14.5 Automated blood platelet count (count/volume) 177 10*3/uL 130-400 Automated blood platelet mean volume measurement 9.9 [foz_us ] 7.4-10.4 Automated blood neutrophils/100 leukocytes 66 % 42-75 Automated blood lymphocytes/100 leukocytes 14 % 12-44 Blood monocytes/100 leukocytes 17 % 0-12 Automated blood eosinophils/100 leukocytes 3 % 0-10 Automated blood basophils/100 leukocytes 0 % 0-10 Blood neutrophils automated count (number/volume) 5.7 10*3 1.8-7.8 Blood lymphocytes automated count (number/volume) 1.2 10*3 1.0-4.0 Blood monocytes automated count (number/volume) 1.5 10*3 0.0-1.0 Automated eosinophil count 0.3 10*3/uL 0.0-0.3 Automated blood basophil count (count/volume) 0.0 10*3/uL 0.0-0.1 Comprehensive metabolic panel - 03/05/16 06:55 Serum or plasma sodium measurement (moles/volume) 133 mmol/ L 135-145 Serum or plasma potassium measurement (moles/volume) 4.2 mmol/L 3.6-5.0 Serum or plasma chloride measurement (moles/volume) 97 mmol/ L 98-107 Carbon dioxide 21 mmol/L 21-32 Serum or plasma anion gap determination (moles/volume) 15 mmol/L 5-14 Serum or plasma urea nitrogen measurement (mass/volume) 31 mg/dL 7-18 Serum or plasma creatinine measurement (mass/volume) 1.41 mg /dL 0.60-1.30 Serum or plasma urea nitrogen/creatinine mass ratio 22 NRG Serum or plasma creatinine measurement with calculation of estimated glomerular filtration rate 49 NRG Serum or plasma glucose measurement (mass/volume) 267 mg/dL 70-105 Serum or plasma calcium measurement (mass/volume) 9.0 mg/dL 8.5-10.1 Serum or plasma total bilirubin measurement (mass/volume) 0.5 mg/dL 0.1-1.0 Serum or plasma alkaline phosphatase measurement (enzymatic activity/volume) 71 U/L 40-136 Serum or plasma aspartate aminotransferase measurement (enzymatic activity/ volume) 34 U/L 5-34 Serum or plasma alanine aminotransferase measurement (enzymatic activity/volume ) 21 U/L 0-55 Serum or plasma protein measurement (mass/volume) 7.2 g/dL 6.4-8.2 Serum or plasma albumin measurement (mass/volume) 3.5 g/dL 3.2-4.5 Capillary blood glucose measurement by glucometer (mass/volume) - 03/05/16 10: 48 Capillary blood glucose measurement by glucometer (mass/volume) 243 mg/dL 70-110 Capillary blood glucose measurement by glucometer (mass/volume) - 03/05/16 15: 58 Capillary blood glucose measurement by glucometer (mass/volume) 369 mg/dL 70-110 Capillary blood glucose measurement by glucometer (mass/volume) - 03/05/16 20: 28 Capillary blood glucose measurement by glucometer (mass/volume) 343 mg/dL 70-110 Automated blood complete blood count (hemogram) panel - 03/06/16 06:10 Blood leukocytes automated count (number/volume) 8.4 10*3/ uL 4.3-11.0 Blood erythrocytes automated count (number/volume) 3.76 10*6 /uL 4.35-5.85 Venous blood hemoglobin measurement (mass/volume) 11.0 g/dL 13.3-17.7 Blood hematocrit (volume fraction) 33 % 40-54 Automated erythrocyte mean corpuscular volume 89 [foz_us] 80-99 Automated erythrocyte mean corpuscular hemoglobin (mass per erythrocyte) 29 pg 25-34 Automated erythrocyte mean corpuscular hemoglobin concentration measurement ( mass/volume) 33 g/dL 32-36 Automated erythrocyte distribution width ratio 13.0 % 10.0-14.5 Automated blood platelet count (count/volume) 180 10*3/uL 130-400 Automated blood platelet mean volume measurement 9.5 [foz_us ] 7.4-10.4 Whole blood basic metabolic panel - 03/06/16 06:10 Serum or plasma sodium measurement (moles/volume) 134 mmol/ L 135-145 Serum or plasma potassium measurement (moles/volume) 4.3 mmol/L 3.6-5.0 Serum or plasma chloride measurement (moles/volume) 100 mmol /L 98-107 Carbon dioxide 22 mmol/L 21-32 Serum or plasma anion gap determination (moles/volume) 12 mmol/L 5-14 Serum or plasma urea nitrogen measurement (mass/volume) 25 mg/dL 7-18 Serum or plasma creatinine measurement (mass/volume) 1.29 mg /dL 0.60-1.30 Serum or plasma urea nitrogen/creatinine mass ratio 19 NRG Serum or plasma creatinine measurement with calculation of estimated glomerular filtration rate 54 NRG Serum or plasma glucose measurement (mass/volume) 274 mg/dL 70-105 Serum or plasma calcium measurement (mass/volume) 8.8 mg/dL 8.5-10.1 Capillary blood glucose measurement by glucometer (mass/volume) - 03/06/16 06: 11 Capillary blood glucose measurement by glucometer (mass/volume) 269 mg/dL 70-110 Capillary blood glucose measurement by glucometer (mass/volume) - 03/06/16 11: 26 Capillary blood glucose measurement by glucometer (mass/volume) 293 mg/dL 70-110 Complete blood count (CBC) with automated white blood cell (WBC) differential - 03/14/16 17:00 Blood leukocytes automated count (number/volume) 5.8 10*3/ uL 4.3-11.0 Blood erythrocytes automated count (number/volume) 5.14 10*6 /uL 4.35-5.85 Venous blood hemoglobin measurement (mass/volume) 14.8 g/dL 13.3-17.7 Blood hematocrit (volume fraction) 43 % 40-54 Automated erythrocyte mean corpuscular volume 84 [foz_us] 80-99 Automated erythrocyte mean corpuscular hemoglobin (mass per erythrocyte) 29 pg 25-34 Automated erythrocyte mean corpuscular hemoglobin concentration measurement ( mass/volume) 34 g/dL 32-36 Automated erythrocyte distribution width ratio 13.0 % 10.0-14.5 Automated blood platelet count (count/volume) 228 10*3/uL 130-400 Automated blood platelet mean volume measurement 9.3 [foz_us ] 7.4-10.4 Automated blood neutrophils/100 leukocytes 64 % 42-75 Automated blood lymphocytes/100 leukocytes 22 % 12-44 Blood monocytes/100 leukocytes 9 % 0-12 Automated blood eosinophils/100 leukocytes 4 % 0-10 Automated blood basophils/100 leukocytes 1 % 0-10 Blood neutrophils automated count (number/volume) 3.7 10*3 1.8-7.8 Blood lymphocytes automated count (number/volume) 1.3 10*3 1.0-4.0 Blood monocytes automated count (number/volume) 0.5 10*3 0.0-1.0 Automated eosinophil count 0.2 10*3/uL 0.0-0.3 Automated blood basophil count (count/volume) 0.0 10*3/uL 0.0-0.1 Complete urinalysis with reflex to culture - 03/14/16 17:00 Urine color determination YELLOW NRG Urine clarity determination CLEAR NRG Urine pH measurement by test strip 6 5- 9 Specific gravity of urine by test strip 1.015 1.016-1.022 Urine protein assay by test strip, semi-quantitative NEGATIVE NEGATIVE Urine glucose detection by automated test strip 4+ NEGATIVE Erythrocytes detection in urine sediment by light microscopy 1+ NEGATIVE Urine ketones detection by automated test strip 1+ NEGATIVE Urine nitrite detection by test strip NEGATIVE NEGATIVE Urine total bilirubin detection by test strip NEGATIVE NEGATIVE Urine urobilinogen measurement by automated test strip (mass/volume) NORMAL NORMAL Urine leukocyte esterase detection by dipstick NEGATIVE NEGATIVE Automated urine sediment erythrocyte count by microscopy (number/high power field) NONE NRG Automated urine sediment leukocyte count by microscopy (number/high power field ) NONE NRG Bacteria detection in urine sediment by light microscopy NEGATIVE NRG Squamous epithelial cells detection in urine sediment by light microscopy RARE NRG Crystals detection in urine sediment by light microscopy NONE NRG Casts detection in urine sediment by light microscopy NONE NRG Mucus detection in urine sediment by light microscopy NEGATIVE NRG Complete urinalysis with reflex to culture NO NR Comprehensive metabolic panel - 03/14/16 17:00 Serum or plasma sodium measurement (moles/volume) 132 mmol/ L 135-145 Serum or plasma potassium measurement (moles/volume) 4.3 mmol/L 3.6-5.0 Serum or plasma chloride measurement (moles/volume) 93 mmol/ L 98-107 Carbon dioxide 23 mmol/L 21-32 Serum or plasma anion gap determination (moles/volume) 16 mmol/L 5-14 Serum or plasma urea nitrogen measurement (mass/volume) 47 mg/dL 7-18 Serum or plasma creatinine measurement (mass/volume) 1.78 mg /dL 0.60-1.30 Serum or plasma urea nitrogen/creatinine mass ratio 26 NRG Serum or plasma creatinine measurement with calculation of estimated glomerular filtration rate 37 NRG Serum or plasma glucose measurement (mass/volume) 369 mg/dL 70-105 Serum or plasma calcium measurement (mass/volume) 9.8 mg/dL 8.5-10.1 Serum or plasma total bilirubin measurement (mass/volume) 0.3 mg/dL 0.1-1.0 Serum or plasma alkaline phosphatase measurement (enzymatic activity/volume) 86 U/L 40-136 Serum or plasma aspartate aminotransferase measurement (enzymatic activity/ volume) 18 U/L 5-34 Serum or plasma alanine aminotransferase measurement (enzymatic activity/volume ) 17 U/L 0-55 Serum or plasma protein measurement (mass/volume) 8.1 g/dL 6.4-8.2 Serum or plasma albumin measurement (mass/volume) 3.7 g/dL 3.2-4.5 Serum or plasma thyrotropin measurement by detection limit <=0.05 miu/l (units/ volume) - 03/14/16 17:00 Serum or plasma thyrotropin measurement by detection limit <=0.05 miu/l (units/ volume) 0.57 u[iU]/mL 0.35-4.94 Serum or plasma C reactive protein measurement (mass/volume) - 03/14/16 17:00 Serum or plasma C reactive protein measurement (mass/volume) 1.30 mg/dL 0.00-0.50 Arterial blood gas measurement - 11/19/16 18:27 Blood pCO2 25 mm[Hg] 35-45 Blood pO2 141 mm[Hg] 79-93 Arterial blood bicarbonate measurement (moles/volume) 24 mmol/L 23-27 Arterial blood base excess by calculation 2.2 mmol/L -2.5-2.5 Arterial blood oxygen saturation measurement QNS 94-100 * Inhaled oxygen flow rate 10L NRG Arterial blood pH measurement with patient temperature correction 7.59 7.37-7.43 Arterial blood carbon dioxide, total measurement (moles/volume) 25.2 mmol/L 21.0-31.0 Body site LEFT RADIAL NRG Assessment of wrist artery patency prior to arterial puncture YES-POS NRG Setting of ventilation mode NO NRG Measurement of body temperature 96.8 NRG Complete blood count (CBC) with automated white blood cell (WBC) differential - 11/19/16 19:01 Blood leukocytes automated count (number/volume) 6.6 10*3/ uL 4.3-11.0 Blood erythrocytes automated count (number/volume) 4.44 10*6 /uL 4.35-5.85 Venous blood hemoglobin measurement (mass/volume) 12.2 g/dL 13.3-17.7 Blood hematocrit (volume fraction) 39 % 40-54 Automated erythrocyte mean corpuscular volume 87 [foz_us] 80-99 Automated erythrocyte mean corpuscular hemoglobin (mass per erythrocyte) 28 pg 25-34 Automated erythrocyte mean corpuscular hemoglobin concentration measurement ( mass/volume) 31 g/dL 32-36 Automated erythrocyte distribution width ratio 13.2 % 10.0-14.5 Automated blood platelet count (count/volume) 165 10*3/uL 130-400 Automated blood platelet mean volume measurement 9.8 [foz_us ] 7.4-10.4 Automated blood neutrophils/100 leukocytes 61 % 42-75 Automated blood lymphocytes/100 leukocytes 25 % 12-44 Blood monocytes/100 leukocytes 11 % 0-12 Automated blood eosinophils/100 leukocytes 2 % 0-10 Automated blood basophils/100 leukocytes 1 % 0-10 Blood neutrophils automated count (number/volume) 4.1 10*3 1.8-7.8 Blood lymphocytes automated count (number/volume) 1.7 10*3 1.0-4.0 Blood monocytes automated count (number/volume) 0.7 10*3 0.0-1.0 Automated eosinophil count 0.1 10*3/uL 0.0-0.3 Automated blood basophil count (count/volume) 0.0 10*3/uL 0.0-0.1 Comprehensive metabolic panel - 11/19/16 19:01 Serum or plasma sodium measurement (moles/volume) 134 mmol/ L 135-145 Serum or plasma potassium measurement (moles/volume) 4.7 mmol/L 3.6-5.0 Serum or plasma chloride measurement (moles/volume) 97 mmol/ L 98-107 Carbon dioxide 24 mmol/L 21-32 Serum or plasma anion gap determination (moles/volume) 13 mmol/L 5-14 Serum or plasma urea nitrogen measurement (mass/volume) 22 mg/dL 7-18 Serum or plasma creatinine measurement (mass/volume) 1.31 mg /dL 0.60-1.30 Serum or plasma urea nitrogen/creatinine mass ratio 17 0-20 Serum or plasma creatinine measurement with calculation of estimated glomerular filtration rate 53 NRG Serum or plasma glucose measurement (mass/volume) 298 mg/dL 70-105 Serum or plasma calcium measurement (mass/volume) 9.2 mg/dL 8.5-10.1 Serum or plasma total bilirubin measurement (mass/volume) 0.4 mg/dL 0.1-1.0 Serum or plasma alkaline phosphatase measurement (enzymatic activity/volume) 98 U/L 40-136 Serum or plasma aspartate aminotransferase measurement (enzymatic activity/ volume) 24 U/L 5-34 Serum or plasma alanine aminotransferase measurement (enzymatic activity/volume ) 17 U/L 0-55 Serum or plasma protein measurement (mass/volume) 8.1 g/dL 6.4-8.2 Serum or plasma albumin measurement (mass/volume) 3.8 g/dL 3.2-4.5 Magnesium - 11/19/16 19:01 Magnesium 1.4 mg/dL 1.8-2.4 Blood lactic acid measurement (moles/volume) - 11/19/16 19:01 Blood lactic acid measurement (moles/volume) 2.11 mmol/L 0.50-2.00 Serum or plasma troponin i.cardiac measurement (mass/volume) - 11/19/16 19:01 Serum or plasma troponin i.cardiac measurement (mass/volume) < ng/mL <0.30 Serum or plasma lithium measurement (moles/volume) - 11/19/16 19:01 BNP level 413.4 pg/mL <100.0 Bacterial blood culture - 11/19/16 19:01 Bacterial blood culture NG NR Serum iron and total iron binding capacity panel - 11/19/16 19:01 Serum or plasma iron measurement (mass/volume) 48 % 40-180 Total iron binding capacity and transferrin saturation measurement 11 % 15-50 Iron binding capacity [mass/volume] in serum or plasma 439 % 280-380 UIBC (unsaturated iron binding capacity) 391 % NRG Serum or plasma ferritin measurement (mass/volume) 22.0 % 25.0-300.0 Bacterial blood culture - 11/19/16 19:40 Bacterial blood culture NG NRG Serum or plasma lactate measurement (moles/volume) - 11/19/16 21:15 Serum or plasma lactate measurement (moles/volume) 2.49 mmol /L 0.50-2.00 Capillary blood glucose measurement by glucometer (mass/volume) - 11/20/16 00: 37 Capillary blood glucose measurement by glucometer (mass/volume) 262 mg/dL 70-110 Whole blood basic metabolic panel - 11/20/16 04:24 Serum or plasma sodium measurement (moles/volume) 138 mmol/ L 135-145 Serum or plasma potassium measurement (moles/volume) 4.5 mmol/L 3.6-5.0 Serum or plasma chloride measurement (moles/volume) 97 mmol/ L 98-107 Carbon dioxide 26 mmol/L 21-32 Serum or plasma anion gap determination (moles/volume) 15 mmol/L 5-14 Serum or plasma urea nitrogen measurement (mass/volume) 25 mg/dL 7-18 Serum or plasma creatinine measurement (mass/volume) 1.29 mg /dL 0.60-1.30 Serum or plasma urea nitrogen/creatinine mass ratio 19 0-20 Serum or plasma creatinine measurement with calculation of estimated glomerular filtration rate 54 NRG Serum or plasma glucose measurement (mass/volume) 204 mg/dL 70-105 Serum or plasma calcium measurement (mass/volume) 9.3 mg/dL 8.5-10.1 Serum or plasma lithium measurement (moles/volume) - 11/20/16 04:24 BNP level 494.9 pg/mL <100.0 Capillary blood glucose measurement by glucometer (mass/volume) - 11/20/16 05: 17 Capillary blood glucose measurement by glucometer (mass/volume) 160 mg/dL 70-110 Capillary blood glucose measurement by glucometer (mass/volume) - 11/20/16 11: 32 Capillary blood glucose measurement by glucometer (mass/volume) 107 mg/dL 70-110 Capillary blood glucose measurement by glucometer (mass/volume) - 11/20/16 16: 11 Capillary blood glucose measurement by glucometer (mass/volume) 91 mg/dL 70-110 Capillary blood glucose measurement by glucometer (mass/volume) - 11/20/16 20: 53 Capillary blood glucose measurement by glucometer (mass/volume) 80 mg/dL 70-110 Automated blood complete blood count (hemogram) panel - 11/21/16 04:16 Blood leukocytes automated count (number/volume) 6.6 10*3/ uL 4.3-11.0 Blood erythrocytes automated count (number/volume) 4.16 10*6 /uL 4.35-5.85 Venous blood hemoglobin measurement (mass/volume) 11.5 g/dL 13.3-17.7 Blood hematocrit (volume fraction) 36 % 40-54 Automated erythrocyte mean corpuscular volume 87 [foz_us] 80-99 Automated erythrocyte mean corpuscular hemoglobin (mass per erythrocyte) 28 pg 25-34 Automated erythrocyte mean corpuscular hemoglobin concentration measurement ( mass/volume) 32 g/dL 32-36 Automated erythrocyte distribution width ratio 13.3 % 10.0-14.5 Automated blood platelet count (count/volume) 176 10*3/uL 130-400 Automated blood platelet mean volume measurement 10.4 [foz_ us] 7.4-10.4 Comprehensive metabolic panel - 11/21/16 04:16 Serum or plasma sodium measurement (moles/volume) 141 mmol/ L 135-145 Serum or plasma potassium measurement (moles/volume) 3.7 mmol/L 3.6-5.0 Serum or plasma chloride measurement (moles/volume) 96 mmol/ L 98-107 Carbon dioxide 29 mmol/L 21-32 Serum or plasma anion gap determination (moles/volume) 16 mmol/L 5-14 Serum or plasma urea nitrogen measurement (mass/volume) 27 mg/dL 7-18 Serum or plasma creatinine measurement (mass/volume) 1.44 mg /dL 0.60-1.30 Serum or plasma urea nitrogen/creatinine mass ratio 19 0-20 Serum or plasma creatinine measurement with calculation of estimated glomerular filtration rate 47 NRG Serum or plasma glucose measurement (mass/volume) 80 mg/dL 70-105 Serum or plasma calcium measurement (mass/volume) 9.1 mg/dL 8.5-10.1 Serum or plasma total bilirubin measurement (mass/volume) 0.6 mg/dL 0.1-1.0 Serum or plasma alkaline phosphatase measurement (enzymatic activity/volume) 86 U/L 40-136 Serum or plasma aspartate aminotransferase measurement (enzymatic activity/ volume) 43 U/L 5-34 Serum or plasma alanine aminotransferase measurement (enzymatic activity/volume ) 16 U/L 0-55 Serum or plasma protein measurement (mass/volume) 7.4 g/dL 6.4-8.2 Serum or plasma albumin measurement (mass/volume) 3.7 g/dL 3.2-4.5 Serum or plasma lithium measurement (moles/volume) - 11/21/16 04:16 BNP level 188.0 pg/mL <100.0 Blood lactic acid measurement (moles/volume) - 11/21/16 09:40 Blood lactic acid measurement (moles/volume) 4.44 mmol/L 0.50-2.00 Capillary blood glucose measurement by glucometer (mass/volume) - 11/21/16 10: 41 Capillary blood glucose measurement by glucometer (mass/volume) 151 mg/dL 70-110 Bacterial blood culture - 11/21/16 10:43 Bacterial blood culture NG [facility] Bacterial blood culture - 11/21/16 10:47 Bacterial blood culture NG [facility] Blood lactic acid measurement (moles/volume) - 11/21/16 12:10 Blood lactic acid measurement (moles/volume) 3.04 mmol/L 0.50-2.00 Blood lactic acid measurement (moles/volume) - 11/21/16 14:05 Blood lactic acid measurement (moles/volume) 1.24 mmol/L 0.50-2.00 Capillary blood glucose measurement by glucometer (mass/volume) - 11/21/16 16: 18 Capillary blood glucose measurement by glucometer (mass/volume) 237 mg/dL 70-110 Capillary blood glucose measurement by glucometer (mass/volume) - 11/21/16 20: 38 Capillary blood glucose measurement by glucometer (mass/volume) 110 mg/dL 70-110 Automated blood complete blood count (hemogram) panel - 11/22/16 05:25 Blood leukocytes automated count (number/volume) 5.7 10*3/ uL 4.3-11.0 Blood erythrocytes automated count (number/volume) 4.19 10*6 /uL 4.35-5.85 Venous blood hemoglobin measurement (mass/volume) 11.5 g/dL 13.3-17.7 Blood hematocrit (volume fraction) 37 % 40-54 Automated erythrocyte mean corpuscular volume 87 [foz_us] 80-99 Automated erythrocyte mean corpuscular hemoglobin (mass per erythrocyte) 27 pg 25-34 Automated erythrocyte mean corpuscular hemoglobin concentration measurement ( mass/volume) 31 g/dL 32-36 Automated erythrocyte distribution width ratio 13.4 % 10.0-14.5 Automated blood platelet count (count/volume) 146 10*3/uL 130-400 Automated blood platelet mean volume measurement 9.9 [foz_us ] 7.4-10.4 Comprehensive metabolic panel - 11/22/16 05:25 Serum or plasma sodium measurement (moles/volume) 134 mmol/ L 135-145 Serum or plasma potassium measurement (moles/volume) 4.3 mmol/L 3.6-5.0 Serum or plasma chloride measurement (moles/volume) 93 mmol/ L 98-107 Carbon dioxide 24 mmol/L 21-32 Serum or plasma anion gap determination (moles/volume) 17 mmol/L 5-14 Serum or plasma urea nitrogen measurement (mass/volume) 33 mg/dL 7-18 Serum or plasma creatinine measurement (mass/volume) 1.92 mg /dL 0.60-1.30 Serum or plasma urea nitrogen/creatinine mass ratio 17 0-20 Serum or plasma creatinine measurement with calculation of estimated glomerular filtration rate 34 NRG Serum or plasma glucose measurement (mass/volume) 546 mg/dL 70-105 Serum or plasma calcium measurement (mass/volume) 8.9 mg/dL 8.5-10.1 Serum or plasma total bilirubin measurement (mass/volume) 0.5 mg/dL 0.1-1.0 Serum or plasma alkaline phosphatase measurement (enzymatic activity/volume) 80 U/L 40-136 Serum or plasma aspartate aminotransferase measurement (enzymatic activity/ volume) 69 U/L 5-34 Serum or plasma alanine aminotransferase measurement (enzymatic activity/volume ) 21 U/L 0-55 Serum or plasma protein measurement (mass/volume) 7.5 g/dL 6.4-8.2 Serum or plasma albumin measurement (mass/volume) 3.5 g/dL 3.2-4.5 Capillary blood glucose measurement by glucometer (mass/volume) - 11/22/16 06: 18 Capillary blood glucose measurement by glucometer (mass/volume) 481 mg/dL 70-110 Capillary blood glucose measurement by glucometer (mass/volume) - 11/22/16 11: 17 Capillary blood glucose measurement by glucometer (mass/volume) 263 mg/dL 70-110 Capillary blood glucose measurement by glucometer (mass/volume) - 11/22/16 16: 07 Capillary blood glucose measurement by glucometer (mass/volume) 184 mg/dL 70-110 Capillary blood glucose measurement by glucometer (mass/volume) - 11/22/16 20: 28 Capillary blood glucose measurement by glucometer (mass/volume) 322 mg/dL 70-110 Capillary blood glucose measurement by glucometer (mass/volume) - 11/23/16 06: 06 Capillary blood glucose measurement by glucometer (mass/volume) 117 mg/dL 70-110 Automated blood complete blood count (hemogram) panel - 11/23/16 07:15 Blood leukocytes automated count (number/volume) 6.0 10*3/ uL 4.3-11.0 Blood erythrocytes automated count (number/volume) 4.05 10*6 /uL 4.35-5.85 Venous blood hemoglobin measurement (mass/volume) 11.2 g/dL 13.3-17.7 Blood hematocrit (volume fraction) 35 % 40-54 Automated erythrocyte mean corpuscular volume 86 [foz_us] 80-99 Automated erythrocyte mean corpuscular hemoglobin (mass per erythrocyte) 28 pg 25-34 Automated erythrocyte mean corpuscular hemoglobin concentration measurement ( mass/volume) 32 g/dL 32-36 Automated erythrocyte distribution width ratio 13.2 % 10.0-14.5 Automated blood platelet count (count/volume) 153 10*3/uL 130-400 Automated blood platelet mean volume measurement 9.9 [foz_us ] 7.4-10.4 Comprehensive metabolic panel - 11/23/16 07:15 Serum or plasma sodium measurement (moles/volume) 137 mmol/ L 135-145 Serum or plasma potassium measurement (moles/volume) 3.9 mmol/L 3.6-5.0 Serum or plasma chloride measurement (moles/volume) 99 mmol/ L 98-107 Carbon dioxide 26 mmol/L 21-32 Serum or plasma anion gap determination (moles/volume) 12 mmol/L 5-14 Serum or plasma urea nitrogen measurement (mass/volume) 23 mg/dL 7-18 Serum or plasma creatinine measurement (mass/volume) 1.44 mg /dL 0.60-1.30 Serum or plasma urea nitrogen/creatinine mass ratio 16 0-20 Serum or plasma creatinine measurement with calculation of estimated glomerular filtration rate 47 NRG Serum or plasma glucose measurement (mass/volume) 157 mg/dL 70-105 Serum or plasma calcium measurement (mass/volume) 8.7 mg/dL 8.5-10.1 Serum or plasma total bilirubin measurement (mass/volume) 0.7 mg/dL 0.1-1.0 Serum or plasma alkaline phosphatase measurement (enzymatic activity/volume) 70 U/L 40-136 Serum or plasma aspartate aminotransferase measurement (enzymatic activity/ volume) 86 U/L 5-34 Serum or plasma alanine aminotransferase measurement (enzymatic activity/volume ) 28 U/L 0-55 Serum or plasma protein measurement (mass/volume) 7.1 g/dL 6.4-8.2 Serum or plasma albumin measurement (mass/volume) 3.5 g/dL 3.2-4.5 Vancomycin trough - 11/23/16 07:15 Vancomycin trough 13.1 ug/mL 10.0-20.0 Serum or plasma lithium measurement (moles/volume) - 11/23/16 07:15 BNP level 429.5 pg/mL <100.0 Capillary blood glucose measurement by glucometer (mass/volume) - 11/23/16 10: 47 Capillary blood glucose measurement by glucometer (mass/volume) 167 mg/dL 70-110 Capillary blood glucose measurement by glucometer (mass/volume) - 11/23/16 16: 32 Capillary blood glucose measurement by glucometer (mass/volume) 357 mg/dL 70-110 Capillary blood glucose measurement by glucometer (mass/volume) - 11/23/16 20: 48 Capillary blood glucose measurement by glucometer (mass/volume) 306 mg/dL 70-110 Capillary blood glucose measurement by glucometer (mass/volume) - 11/24/16 06: 35 Capillary blood glucose measurement by glucometer (mass/volume) 71 mg/dL 70-110 Comprehensive metabolic panel - 11/24/16 06:35 Serum or plasma sodium measurement (moles/volume) 140 mmol/ L 135-145 Serum or plasma potassium measurement (moles/volume) 3.9 mmol/L 3.6-5.0 Serum or plasma chloride measurement (moles/volume) 103 mmol /L 98-107 Carbon dioxide 25 mmol/L 21-32 Serum or plasma anion gap determination (moles/volume) 12 mmol/L 5-14 Serum or plasma urea nitrogen measurement (mass/volume) 18 mg/dL 7-18 Serum or plasma creatinine measurement (mass/volume) 1.15 mg /dL 0.60-1.30 Serum or plasma urea nitrogen/creatinine mass ratio 16 0-20 Serum or plasma creatinine measurement with calculation of estimated glomerular filtration rate > NRG Serum or plasma glucose measurement (mass/volume) 74 mg/dL 70-105 Serum or plasma calcium measurement (mass/volume) 9.2 mg/dL 8.5-10.1 Serum or plasma total bilirubin measurement (mass/volume) 0.6 mg/dL 0.1-1.0 Serum or plasma alkaline phosphatase measurement (enzymatic activity/volume) 64 U/L 40-136 Serum or plasma aspartate aminotransferase measurement (enzymatic activity/ volume) 81 U/L 5-34 Serum or plasma alanine aminotransferase measurement (enzymatic activity/volume ) 30 U/L 0-55 Serum or plasma protein measurement (mass/volume) 7.2 g/dL 6.4-8.2 Serum or plasma albumin measurement (mass/volume) 3.5 g/dL 3.2-4.5 Automated blood complete blood count (hemogram) panel - 11/24/16 06:39 Blood leukocytes automated count (number/volume) 6.1 10*3/ uL 4.3-11.0 Blood erythrocytes automated count (number/volume) 4.03 10*6 /uL 4.35-5.85 Venous blood hemoglobin measurement (mass/volume) 11.1 g/dL 13.3-17.7 Blood hematocrit (volume fraction) 35 % 40-54 Automated erythrocyte mean corpuscular volume 87 [foz_us] 80-99 Automated erythrocyte mean corpuscular hemoglobin (mass per erythrocyte) 28 pg 25-34 Automated erythrocyte mean corpuscular hemoglobin concentration measurement ( mass/volume) 32 g/dL 32-36 Automated erythrocyte distribution width ratio 13.1 % 10.0-14.5 Automated blood platelet count (count/volume) 134 10*3/uL 130-400 Automated blood platelet mean volume measurement 9.8 [foz_us ] 7.4-10.4 Capillary blood glucose measurement by glucometer (mass/volume) - 11/24/16 11: 15 Capillary blood glucose measurement by glucometer (mass/volume) 126 mg/dL 70-110 Encounters ACCT No. Visit Date/Time Discharge Status Pt. Type Provider Facility Loc./Unit Complaint [id number] 03/14/2016 16:46:00 2015 18:50:00 DIS Emergency MICAELA OLIVIA MD [facility] ER DECREASED LOC [id number] 03/04/2016 18:55:00 2015 15:00:00 DIS Inpatient ARVIND CRAWFORD MD [facility] 4TH HYPOGLYCEMIA;ALTERED MENTAL STATUS; DEHYDRATION [id number] 11/19/2015 18:18:00 2015 20:30:00 DIS Emergency LEMUEL TRAORE DO [facility] ER LOW BLOOD SUGAR [id number] 11/14/2015 19:54:00 2015 17:38:00 DIS Inpatient ARVIND CRAWFORD MD [facility] 4TH BILATERAL PNEUMONIA;HYPOGLYCEMIC EPISODE;DEMENTIA; [id number] 04/28/2015 00:30:00 2014 14:55:00 DIS Inpatient MYKEL RAMOS MD [facility] 4TH POSSIBLE EMPYEMA, LEFT PLEURAL EFFUSION , ABDOMINAL [id number] 04/24/2015 12:30:00 2014 23:59:59 CLS Outpatient MYKEL RAMOS MD [facility] HH CHF,DM,HLP [id number] 03/15/2015 13:14:00 2014 16:24:00 DIS Emergency INNA BRINK MD [facility] ER AMS [id number] 03/08/2015 19:45:00 2014 16:16:00 DIS Inpatient DALE ERICKSON, ELÍAS Oakes [facility] CSD ACUTE CHF EXACERBATION [id number] 02/28/2015 20:22:00 2014 21:23:00 DIS Emergency YAMEL ABERNATHY, JC Aguila [facility] ER SOB [id number] 11/19/2016 21:00:00 ACT Inpatient VERNON ERICKSON, ELISE Zimmerman [facility] 4TH RESP DISTRESS, CHF +/OR PNEUMONIA [id number] 07/16/2015 18:01:00 Document Registration [id number] 05/27/2015 15:14:00 ACT Outpatient RACHEL ERICKSON, MYKEL De La Cruz [facility] CHF
--- OUTSIDE RECORDS SUMMARY | 2016-11-25 08:57 | XMS REPORT ---
Author MYKEL Ceja Organization [employer] Address Unknown Phone Unavailable Care Team Providers Care Extension Associate Name Role Phone MYKEL RAMOS CP Unavailable Allergies No Known Allergies Problems Problem Type Condition Code Onset Dates Condition Status Problem Diabetes E11.9 Active Problem Coronary disease I25.10 Active Problem Systolic heart failure I50.20 Active Problem Dementia F03.90 Active Medications Medication Code System Code Instructions Start Date End Date Status Dosage Coreg [facility] [address]-07 3.125 MG Orally 2 times a day 1 tablet Results No Known Results Summary Purpose [employer] Submission
--- OUTSIDE RECORDS SUMMARY | 2016-11-25 08:57 | XMS REPORT ---
Author MYKEL Ceja Organization [employer] Address Unknown Phone Unavailable Care Team Providers Care Water Hauler Name Role Phone MYKEL RAMOS CP Unavailable Allergies No Known Allergies Problems Problem Type Condition Code Onset Dates Condition Status Problem Diabetes E11.9 Active Problem Coronary disease I25.10 Active Problem Systolic heart failure I50.20 Active Problem Dementia F03.90 Active Medications No Known Medications Results No Known Results Summary Purpose [employer] Submission
--- OUTSIDE RECORDS SUMMARY | 2016-11-25 08:57 | XMS REPORT ---
Author MYKEL Ceja Organization [employer] Address Unknown Phone Unavailable Care Team Providers Care Joint Runner Name Role Phone MYKEL RAMOS CP Unavailable Allergies No Known Allergies Problems Problem Type Condition Code Onset Dates Condition Status Problem Diabetes E11.9 Active Problem Coronary disease I25.10 Active Problem Systolic heart failure I50.20 Active Problem Dementia F03.90 Active Medications No Known Medications Results No Known Results Summary Purpose [employer] Submission
--- OUTSIDE RECORDS SUMMARY | 2016-11-25 08:57 | XMS REPORT ---
Author ANKIT Hoyt eClinical[employer] Address Unknown Phone Unavailable Care Team Providers Care Pellet Mill Operator Name Role Phone ANKIT PRITCHARD CP Unavailable Allergies, Adverse Reactions, Alerts Substance Reaction Event Type N.K.D.A. Info Not Available Non Drug Allergy Problems Problem Type Condition Code Onset Dates Condition Status Problem Coronary disease I25.10 Active Problem Dementia F03.90 Active Problem Diabetes E11.9 Active Assessment Dementia F03.90 Active Assessment Bloating R14.0 Active Assessment Diabetes E11.9 Active Medications Medication Code System Code Instructions Start Date End Date Status Dosage Klor-Con 10 [facility] [address]-19 10 MEQ Orally Four times a day 1 tablet Coreg [facility] [place] [address]-46 3.125 MG Orally not defined Aspir-81 [facility] [place] [address]-49 81 MG Orally Once a day 1 tablet Metamucil [facility] [address] 30.9 % Orally not defined MiraLax [facility] [address]-06 17 gm/dose Orally Once a day 17 grams mixed in 8 oz of water or juice Pravastatin Sodium [facility] [place] [address]-50 20 MG Orally Once a day 1 tablet Protonix [facility] [address]-71 40 MG Orally Once a day 1 tablet Lantus [facility] [place] [address]-65 100 UNIT/ML Subcutaneous Once a day 20, units NovoLog [facility] [place] [address]-47 100 UNIT/ML Subcutaneous 20 in Am and PM, 25 with lunch Celexa [facility] [address]-15 20 MG Orally Once a day 1 tablet Multivital [facility] [place] [address] Orally not defined Ticagrelor [facility] [address]-46 90 MG Orally Twice a day 1 tablet Lasix [facility] [place] [address]-52 20 MG Orally Once a day 1 tablet Procedures Procedure Coding System Code Date Office Visit, Est Pt., Level 3 CPT-4 49916 May 22, 2015 [facility] VISIT ESTABLISHED PATIENT CPT-4 G0467 May 22, 2015 Vital Signs Date/Time: May 22, 2015 Temperature 98.1 F Weight 170.6 lbs Height 69 in BMI 25.19 Index Blood Pressure Diastolic 62 mmHg Blood Pressure Systolic 92 mmHg Cardiac Monitoring Heart Rate 80 bpm Results No Known Results Summary Purpose eClinicalWorks Submission
--- OUTSIDE RECORDS SUMMARY | 2016-11-25 08:58 | XMS REPORT ---
Author Author MYKEL RAMOS [facility] eClinicalWorks Address Unknown Phone Unavailable Care Team Providers Care Driver Service Technician Name Role Phone MYKEL RAMOS CP Unavailable Allergies No Known Allergies Problems Problem Type Condition Code Onset Dates Condition Status Problem Coronary disease I25.10 Active Problem Dementia F03.90 Active Problem Diabetes E11.9 Active Assessment Dementia F03.90 Active Assessment Blood loss anemia D50.0 Active Assessment Diabetes E11.9 Active Assessment Coronary disease I25.10 Active Medications No Known Medications Procedures Procedure Coding System Code Date NURSING FACILITY CARE, INIT CPT-4 27142 Mar 18, 2015 Results No Known Results Summary Purpose eClinicalWorks Submission
--- OUTSIDE RECORDS SUMMARY | 2016-11-25 08:58 | XMS REPORT ---
Author MYKEL Ceja Organization [employer] Address Unknown Phone Unavailable Care Team Providers Care Physics Department Chair Name Role Phone MYKEL RAMOS CP Unavailable Allergies No Known Allergies Problems Problem Type Condition Code Onset Dates Condition Status Problem Coronary disease I25.10 Active Problem Dementia F03.90 Active Problem Diabetes E11.9 Active Medications No Known Medications Results No Known Results Summary Purpose eClinicalWorks Submission
--- OUTSIDE RECORDS SUMMARY | 2016-11-25 08:58 | XMS REPORT ---
Author MYKEL Ceja Organization [employer] Address Unknown Phone Unavailable Care Team Providers Care Fish Bait Processing Supervisor Name Role Phone MYKEL RAMOS CP Unavailable Allergies No Known Allergies Problems Problem Type Condition Code Onset Dates Condition Status Problem Diabetes E11.9 Active Problem Coronary disease I25.10 Active Problem Systolic heart failure I50.20 Active Problem Dementia F03.90 Active Medications No Known Medications Results No Known Results Summary Purpose eClinicalWorks Submission
--- OUTSIDE RECORDS SUMMARY | 2016-11-25 08:58 | XMS REPORT ---
Author MYKEL Ceja Organization [employer] Address Unknown Phone Unavailable Care Team Providers Care Domestic Cleaner Name Role Phone MYKEL RAMOS CP Unavailable Allergies No Known Allergies Problems Problem Type Condition Code Onset Dates Condition Status Problem Coronary disease I25.10 Active Problem Dementia F03.90 Active Problem Diabetes E11.9 Active Medications No Known Medications Results No Known Results Summary Purpose eClinicalWorks Submission
--- OUTSIDE RECORDS SUMMARY | 2016-11-25 08:58 | XMS REPORT ---
Author Author MYKEL RAMOS [facility] eClinicalWorks Address Unknown Phone Unavailable Care Team Providers Care Chest Pain Coordinator Name Role Phone MYKEL RAMOS CP Unavailable Allergies, Adverse Reactions, Alerts Substance Reaction Event Type N.K.D.A. Info Not Available Non Drug Allergy Problems Problem Type Condition Code Onset Dates Condition Status Problem Coronary disease I25.10 Active Problem Dementia F03.90 Active Problem Diabetes E11.9 Active Assessment Diabetes E11.9 Active Assessment Congestive heart failure I50.9 Active Medications Medication Code System Code Instructions Start Date End Date Status Dosage Lantus [facility] [address]-23 100 UNIT/ML Subcutaneous Once a day 20, units MiraLax [facility] [address]-81 17 gm/dose Orally Once a day 17 grams mixed in 8 oz of water or juice Protonix [facility] [address]-86 40 MG Orally Once a day 1 tablet Ticagrelor [facility] [address]-25 90 MG Orally Twice a day 1 tablet NovoLog [facility] [address]-55 100 UNIT/ML Subcutaneous 20 in Am and PM, 25 with lunch Coreg [facility] [address]-97 3.125 MG Orally not defined Pravastatin Sodium [facility] [address]-59 20 MG Orally Once a day 1 tablet Multivital [facility] [address] Orally not defined Lasix [facility] [address]-38 20 MG Orally Once a day 1 tablet Aspir-81 [facility] [address]-40 81 MG Orally Once a day 1 tablet Metamucil [facility] 422[address]198 30.9 % Orally not defined Klor-Con 10 [facility] [address]-22 10 MEQ Orally Four times a day 1 tablet Celexa [facility] [address]-34 20 MG Orally Once a day 1 tablet Procedures Procedure Coding System Code Date [facility] VISIT ESTABLISHED PATIENT CPT-4 G0467 Apr 22, 2015 Office Visit, Est Pt., Level 3 CPT-4 21524 Apr 22, 2015 GLYCATED HEMOGLOBIN TEST CPT-4 92307 Apr 22, 2015 Vital Signs Date/Time: Apr 22, 2015 Temperature 98.0 F Weight 166 lbs Height 69 in BMI 24.51 Index Blood Pressure Diastolic 70 mmHg Blood Pressure Systolic 122 mmHg Cardiac Monitoring Heart Rate 70 bpm Results Name Result Date Reference Range Unit Abnormality Flag A1C (IN HOUSE) Summary Purpose eClinicalWorks Submission
--- OUTSIDE RECORDS SUMMARY | 2016-11-25 08:58 | XMS REPORT ---
Author ASHUTOSH Plasencia [facility] eClinicalWorks Address Unknown Phone Unavailable Care Team Providers Care Cobbler Sole Name Role Phone ASHUTOSH GERMAN CP Unavailable Allergies No Known Allergies Problems Problem Type Condition Code Onset Dates Condition Status Problem Coronary disease I25.10 Active Problem Dementia F03.90 Active Problem Diabetes E11.9 Active Medications No Known Medications Results No Known Results Summary Purpose eClinicalWorks Submission
--- OUTSIDE RECORDS SUMMARY | 2016-11-25 08:58 | XMS REPORT ---
Author MYKEL Ceja Organization eClinicalWorks Address Unknown Phone Unavailable Care Team Providers Care Sleeve Maker Name Role Phone MYKEL RAMOS CP Unavailable Allergies No Known Allergies Problems Problem Type Condition Code Onset Dates Condition Status Problem Diabetes E11.9 Active Problem Coronary disease I25.10 Active Problem Systolic heart failure I50.20 Active Problem Dementia F03.90 Active Medications Medication Code System Code Instructions Start Date End Date Status Dosage Lantus [facility] [address]-81 100 UNIT/ML Subcutaneous 2 times a day 20 , units at 0800, 50 units at 8 pm Results No Known Results Summary Purpose eClinicalWorks Submission
--- OUTSIDE RECORDS SUMMARY | 2016-11-25 08:58 | XMS REPORT ---
Author Author MYKEL RAMOS [facility] Address [address] [place] [address] Care Team Providers Care Accounts Receivable Supervisor Name Role Phone MYKEL RAMOS Unavailable PROBLEMS Type Condition ICD9-CM Code [id number] Code Onset Dates Condition Status SNOMED Code Problem Systolic heart failure I50.20 Active 035000388 Problem Diabetes E11.9 Active 38335522 Problem Coronary disease I25.10 Active 12410470 Problem Dementia F03.90 Active 31261639 ALLERGIES Unknown Allergies SOCIAL HISTORY No smoking Hx information available PLAN OF CARE VITAL SIGNS MEDICATIONS Medication Instructions Dosage Frequency Start Date End Date Duration Status Klor-Con 10 10 MEQ Orally Once a day 1 tablet 24h Active RESULTS No Results PROCEDURES No Known procedures IMMUNIZATIONS No Known Immunizations
--- OUTSIDE RECORDS SUMMARY | 2016-11-25 08:58 | XMS REPORT ---
Author MYKEL Ceja Organization eClinicalWorks Address Unknown Phone Unavailable Care Team Providers Care Customer Complaint Clerk Name Role Phone MYKEL RAMOS CP Unavailable Allergies No Known Allergies Problems Problem Type Condition Code Onset Dates Condition Status Problem Diabetes E11.9 Active Problem Coronary disease I25.10 Active Problem Systolic heart failure I50.20 Active Problem Dementia F03.90 Active Medications No Known Medications Results No Known Results Summary Purpose eClinicalWorks Submission
--- OUTSIDE RECORDS SUMMARY | 2016-11-25 08:58 | XMS REPORT ---
Author MYKEL Ceja [facility] eClinicalWorks Address Unknown Phone Unavailable Care Team Providers Care Solution Make Up Operator Name Role Phone MYKEL RAMOS CP Unavailable Allergies, Adverse Reactions, Alerts Substance Reaction Event Type N.K.D.A. Info Not Available Non Drug Allergy Problems Problem Type Condition Code Onset Dates Condition Status Problem Diabetes E11.9 Active Problem Coronary disease I25.10 Active Problem Systolic heart failure I50.20 Active Assessment Diabetes E11.9 Active Problem Dementia F03.90 Active Assessment Systolic heart failure I50.20 Active Medications Medication Code System Code Instructions Start Date End Date Status Dosage Protonix [facility] [address]-49 40 MG Orally Once a day 1 tablet Furosemide [facility] 48233215097 40 MG TAKE ONE TABLET BY MOUTH ONCE DAILY Klor-Con 10 [facility] [address]-96 10 MEQ Orally Once a day 1 tablet Multivital [facility] [address] Orally not defined Celexa [facility] [address]-04 20 MG Orally Once a day 1 tablet Coreg [facility] [address]-90 3.125 MG Orally 2 times a day not defined Pravastatin Sodium [facility] [address]-60 20 MG Orally Once a day 1 tablet NovoLog [facility] [address]-16 100 UNIT/ML Subcutaneous 20 in Am and PM, 25 with lunch and 20 in om Calcium 1000 + D [facility] [address]797 1000-800 MG-UNIT Orally not defined Flomax [facility] [address]-84 0.4 MG Orally Once a day 1 capsule 30 minutes after the same meal each day Aspir-81 [facility] [address]-64 81 MG Orally Once a day 1 tablet Procedures Procedure Coding System Code Date [facility] VISIT ESTABLISHED PATIENT CPT-4 G0467 Jul 05, 2015 Office Visit, Est Pt., Level 3 CPT-4 55186 Jul 05, 2015 [facility] CPT-4 NOBLL Jul 05, 2015 VENIPUNCT, ROUTINE* CPT-4 10246 Jul 05, 2015 Vital Signs Date/Time: Jul 05, 2015 Temperature 98.0 F Weight 175 lbs Height 69 in BMI 25.84 Index Blood Pressure Diastolic 68 mmHg Blood Pressure Systolic 112 mmHg Cardiac Monitoring Heart Rate 62 bpm Results Name Result Date Reference Range Unit Abnormality Flag ROUTINE VENIPUNCTURE Summary Purpose eClinicalWorks Submission
--- OUTSIDE RECORDS SUMMARY | 2016-11-25 08:59 | XMS REPORT ---
Author MYKEL Ceja [facility] eClinicalWorks Address Unknown Phone Unavailable Care Team Providers Care Bulk Materials Handling Plant Operator Name Role Phone MYKEL RAMOS CP Unavailable Allergies No Known Allergies Problems Problem Type Condition Code Onset Dates Condition Status Problem Coronary disease I25.10 Active Problem Dementia F03.90 Active Problem Diabetes E11.9 Active Medications No Known Medications Results No Known Results Summary Purpose eClinicalWorks Submission
--- OUTSIDE RECORDS SUMMARY | 2016-11-25 08:59 | XMS REPORT ---
Author Author MYKEL RAMOS [facility] Address [address] [place] [address] Care Team Providers Care Screw Machine Operator Name Role Phone MYKEL RAMOS Unavailable PROBLEMS Type Condition ICD9-CM Code [id number] Code Onset Dates Condition Status SNOMED Code Problem Systolic heart failure I50.20 Active 459611545 Problem Diabetes E11.9 Active 19114042 Problem Coronary disease I25.10 Active 30214718 Problem Dementia F03.90 Active 60265072 ALLERGIES Unknown Allergies SOCIAL HISTORY No smoking Hx information available PLAN OF CARE VITAL SIGNS MEDICATIONS Unknown Medications RESULTS No Results PROCEDURES No Known procedures IMMUNIZATIONS No Known Immunizations
--- OUTSIDE RECORDS SUMMARY | 2016-11-25 09:25 | XMS REPORT | Continuity of Care Document ---
Author Author [facility] Organization [facility] Address Unknown Phone Unavailable Allergies Active Description Code Type Severity Reaction Onset Reported/Identified Relationship to Patient Clinical Status Yes No Allergy Information Available [id number] Drug Allergy Unknown N/A 02/28/2015 Yes No Known Drug Allergies [id number] Drug Allergy Unknown N/ A 03/14/2016 Medications [...] MD, Ot I25.10 ATHSCL HEART DISEASE OF [place] CORONARY 03/13/2015 ELÍAS HUNTER MD, Ot I50.23 [...] RESUSCITATE 03/13/2015 ELÍAS HUNTER MD, Ot Z79.4 USP (CURRENT) USE OF INSULIN 03/13/2015 ELÍAS HUNTER [...] UNSPECIFIED 03/15/2015 INNA BRINK MD Ot Z79.4 USP (CURRENT) USE OF INSULIN 03/15/2015 INNA BRINK MD Ot Z79.899 OTHER USP (CURRENT) DRUG THERAPY 05/01/2015 RACHEL ERICKSON, MYKEL De La Cruz Ot 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 05/01/2015 RACHEL ERICKSON, MYKEL De La Cruz Ot F03.90 UNSPECIFIED DEMENTIA WITHOUT BEHAVIORAL 05/01/2015 RACHEL ERICKSON, MYKEL De La Cruz Ot I25.10 ATHSCL HEART DISEASE OF [place] CORONARY 05/01/2015 RACHEL ERICKSON, MYKEL De La Cruz Ot I25.5 ISCHEMIC CARDIOMYOPATHY 05/01/2015 RACHEL ERICKSON, MYKEL De La Cruz Ot I50.22 CHRONIC SYSTOLIC (CONGESTIVE) HEART [...] J18.9 PNEUMONIA, UNSPECIFIED ORGANISM 07/16/2015 Ot Z79.4 USP (CURRENT) USE OF INSULIN 07/16/2015 Ot Z79.899 OTHER USP (CURRENT) DRUG THERAPY 11/15/2015 TY ERICKSON, ARVIND Deluca Ot 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 11/15/2015 ARVIND CRAWFORD MD, Ot E11.649 TYPE 2 DIABETES MELLITUS WITH HYPOGLYCEM 11/15/2015 ARVIND CRAWFORD MD Ot F03.90 UNSPECIFIED DEMENTIA WITHOUT BEHAVIORAL 11/15/2015 ARVIND CRAWFORD MD Ot I12.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 11/15/2015 ARVIND CRAWFORD MD Ot I25.10 ATHSCL HEART DISEASE OF [place] CORONARY 11/15/2015 ARVIND CRAWFORD MD Ot I50.22 CHRONIC SYSTOLIC (CONGESTIVE) HEART FAIL 11/15/2015 ARVIND CRAWFORD MD, Ot J18.9 PNEUMONIA, UNSPECIFIED ORGANISM 11/15/2015 ARVIND CRAWFORD MD, Ot N18.9 CHRONIC KIDNEY DISEASE, UNSPECIFIED 11/15/2015 ARVIND CRAWFORD MD Ot Z66 DO NOT RESUSCITATE 11/15/2015 ARVIND CRAWFORD MD, Ot Z79.4 YARD HAND (CURRENT) USE OF INSULIN 11/15/2015 ARVIND CRAWFORD MD, Ot Z87.891 PERSONAL HISTORY OF NICOTINE DEPENDENCE 11/19/2015 LEMUEL TRAORE DO, Ot E11.649 TYPE 2 DIABETES MELLITUS WITH HYPOGLYCEM 11/19/2015 LEMUEL TRAORE DO, Ot Z79.4 YARD HAND (CURRENT) USE OF INSULIN 11/20/2015 LEMUEL TRAORE DO, Ot E11.649 TYPE 2 DIABETES MELLITUS WITH HYPOGLYCEM 11/20/2015 LEMUEL TRAORE DO, Ot Z79.4 YARD HAND (CURRENT) USE OF INSULIN 03/06/2016 ARVIND CRAWFORD MD Ot 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 03/06/2016 ARVIND CRAWFORD MD Ot E11.649 TYPE [...] MD, Ot I25.10 ATHSCL HEART DISEASE OF [place] CORONARY 03/06/2016 ARVIND CRAWFORD MD, Ot I25.2 [...] RESUSCITATE 03/06/2016 ARVIND CRAWFORD MD, Ot Z79.4 USP (CURRENT) USE OF INSULIN 03/06/2016 ARVIND CRAWFORD MD, Ot Z87.820 PERSONAL HISTORY OF [...] MD Ot I25.10 ATHSCL HEART DISEASE OF [place] CORONARY 03/14/2016 MICAELA OLIVIA MD Ot I51.7 CARDIOMEGALY 03/14/2016 MICAELA OLIVAI MD Ot N28.9 DISORDER OF KIDNEY AND URETER, UNSPECIFI 03/14/2016 MICAELA OLIVIA MD Ot R41.82 ALTERED MENTAL STATUS, UNSPECIFIED 03/14/2016 MICAELA OLIVIA MD Ot Z79.4 YARD HAND (CURRENT) USE OF INSULIN 03/14/2016 MICAELA OLIVIA MD Ot Z79.82 USP (CURRENT) USE OF ASPIRIN 03/14/2016 MICAELA OLIVIA MD Ot Z79.899 OTHER USP (CURRENT) DRUG THERAPY 03/14/2016 MICAELA OLIVIA MD Ot Z95.5 PRESENCE OF CORONARY ANGIOPLASTY IMPLANT 03/16/2016 MICAELA OLIVIA MD Ot E11.65 TYPE 2 DIABETES MELLITUS WITH HYPERGLYCE 03/16/2016 MICAELA OLIVIA MD Ot F03.90 UNSPECIFIED DEMENTIA WITHOUT BEHAVIORAL 03/16/2016 MICAELA OLIVIA MD Ot I10 ESSENTIAL (PRIMARY) HYPERTENSION 03/16/2016 MICAELA OLIVIA MD Ot I25.10 ATHSCL HEART DISEASE OF [place] CORONARY 03/16/2016 MICAELA OLIVIA MD Ot I51.7 CARDIOMEGALY 03/16/2016 MICAELA OLIVIA MD Ot N28.9 DISORDER OF KIDNEY AND URETER, UNSPECIFI 03/16/2016 MICAELA OLIVIA MD Ot R41.82 ALTERED MENTAL STATUS, UNSPECIFIED 03/16/2016 MICAELA OLIVIA MD Ot Z79.4 YARD HAND (CURRENT) USE OF INSULIN 03/16/2016 MICAELA OLIVIA MD Ot Z79.82 YARD HAND (CURRENT) USE OF ASPIRIN 03/16/2016 MICAELA OLIVIA MD Ot Z79.899 OTHER USP (CURRENT) DRUG THERAPY 03/16/2016 MICAELA OLIVIA MD [...] - 11/21/16 10:43 Bacterial blood culture NG [facility] Bacterial blood culture - 11/21/16 10:47 Bacterial blood culture NG [facility] Blood lactic acid measurement (moles/volume) - [...] Status Pt. Type Provider Facility Loc./Unit Complaint [id number] 03/14/2016 16:46:00 2015 18:50:00 DIS Emergency MICAELA OLIVIA MD [facility] ER DECREASED LOC [id number] 03/04/2016 18:55:00 2015 15:00:00 DIS Inpatient ARVIND CRAWFORD MD [facility] 4TH HYPOGLYCEMIA;ALTERED MENTAL STATUS; DEHYDRATION [id number] 11/19/2015 18:18:00 2015 20:30:00 DIS Emergency LEMUEL TRAORE DO [facility] ER LOW BLOOD SUGAR [id number] 11/14/2015 19:54:00 2015 17:38:00 DIS Inpatient ARVIND CRAWFORD MD [facility] 4TH BILATERAL PNEUMONIA;HYPOGLYCEMIC EPISODE;DEMENTIA; [id number] 04/28/2015 00:30:00 2014 14:55:00 DIS Inpatient MYKEL RAMOS MD [facility] 4TH POSSIBLE EMPYEMA, LEFT PLEURAL EFFUSION , ABDOMINAL [id number] 04/24/2015 12:30:00 2014 23:59:59 CLS Outpatient MYKEL RAMOS MD [facility] HH CHF,DM,HLP [id number] 03/15/2015 13:14:00 2014 16:24:00 DIS Emergency INNA BRINK MD [facility] ER AMS [id number] 03/08/2015 19:45:00 2014 16:16:00 DIS Inpatient DALE ERICKSON, ELÍAS Oakes [facility] CSD ACUTE CHF EXACERBATION [id number] 02/28/2015 20:22:00 2014 21:23:00 DIS Emergency YAMEL ABERNATHY, JC Aguila [facility] ER SOB [id number] 11/19/2016 21:00:00 ACT Inpatient VERNON ERICKSON, ELISE Zimmerman [facility] 4TH RESP DISTRESS, CHF +/OR PNEUMONIA [id number] 07/16/2015 18:01:00 Document Registration [id number] 05/27/2015 15:14:00 ACT Outpatient RACHEL ERICKSON, MYKEL De La Cruz [facility] CHF
== END 2016-11-24 13:10 | DRG 871 ==
LOC: EDUNIT# 18:05 → ER 18:06 → 4TH 21:00 → ENPENDDIS 11-24 11:00
PROVIDERS: ADMIT Family Medicine; ATTEND Family Medicine
DX: A41.9 Sepsis, unspecified organism (principal); J44.0 Chronic obstructive pulmonary disease with (acute) lower respiratory infection; J18.9 Pneumonia, unspecified organism; I11.0 Hypertensive heart disease with heart failure; I50.43 Acute on chronic combined systolic (congestive) and diastolic (congestive) heart failure; N28.9 Disorder of kidney and ureter, unspecified; F41.9 Anxiety disorder, unspecified; Z66 Do not resuscitate; I25.10 Atherosclerotic heart disease of native coronary artery without angina pectoris; E78.00 Pure hypercholesterolemia, unspecified; I25.2 Old myocardial infarction; E11.69 Type 2 diabetes mellitus with other specified complication; F01.50 Vascular dementia, unspecified severity, without behavioral disturbance, psychotic disturbance, mood disturbance, and anxiety; N40.0 Benign prostatic hyperplasia without lower urinary tract symptoms; K21.9 Gastro-esophageal reflux disease without esophagitis; J30.2 Other seasonal allergic rhinitis; M19.91 Primary osteoarthritis, unspecified site; Z79.4 Long term (current) use of insulin; Z87.820 Personal history of traumatic brain injury; Z95.5 Presence of coronary angioplasty implant and graft; Z87.891 Personal history of nicotine dependence
CPT/HCPCS: 36415; 71010; 71020; 71250; 80048; 80053; 80202; 82728; 82805; 82962; 83540; 83605; 83735; 83880; 84484; 85025; 85027; 87040; 93005; 93306; 94640; 94664; 94760; 96365; 96375; 96376

== ENCOUNTER 2016-11-25 18:45 | Inpatient (IN) | payer MEDICARE ==
[~2016-11-25] VITALS: Ht 180.3 cm; Wt 70.9 kg
[~2016-11-25 18:45] MED LIST changes: +ALBU2.5V4 IH; +AMOX-358 PO; +ATOR20TA66 PO; +CETI10TA17 PO; +LACT1CAP87 PO; +LIPA1CAP26 PO; +MELA1TAB10 PO; +OMEP20CA12 PO; +RIVA1PAT12 TD; +SERT25TA5 PO; +TRAZ-28 PO
[2016-11-25] MEDS ORDERED: RT-ALBUTEROL/IPRATROPIUM 3 ML (DUONEB) VIAL INH ONE (19:00)
[2016-11-25 19:18] LABS: BASOPHILS % (AUTO) 0 % (0-10); EOSINOPHILS # (AUTO) 0.1 10^3/uL (0.0-0.3); EOSINOPHILS % (AUTO) 1 % (0-10); LYMPHOCYTES # (AUTO) 0.9 X 10^3 (1.0-4.0); LYMPHOCYTES % (AUTO) 13 % (12-44); MEAN CORPUSCULAR HEMOGLOBIN 28 PG (25-34); MEAN CORPUSCULAR HGB CONC 31 G/DL (32-36); MEAN CORPUSCULAR VOLUME 88 FL (80-99); MEAN PLATELET VOLUME 10.3 FL (7.4-10.4); MONOCYTES # (AUTO) 0.7 X 10^3 (0.0-1.0); MONOCYTES % (AUTO) 10 % (0-12); NEUTROPHILS # (AUTO) 5.3 X 10^3 (1.8-7.8); NEUTROPHILS % (AUTO) 76 % (42-75); PLATELET COUNT 145 10^3/uL (130-400); RED BLOOD COUNT 4.18 10^6/uL (4.35-5.85); RED CELL DISTRIBUTION WIDTH 13.4 % (10.0-14.5); WHITE BLOOD COUNT 6.9 10^3/uL (4.3-11.0)
--- NOTE | 2016-11-25 19:29 | Diagnostic Imaging Report ---
INDICATION: Respiratory distress. TECHNIQUE: Single-view chest at 7:15 p.m. CORRELATION STUDY: 11/24/2016. FINDINGS: Heart size remains enlarged. Mediastinum is prominent. Vasculature overall appears increased. Increasing densities throughout both lung evans are present. There is also what appears to be increasing fluid, particularly along the fissure plane in the right midlung. IMPRESSION: 1. Overall increasing severity of congestive changes of the chest suggested along with bilateral pleural effusions. Scattered areas of infiltrate or edema throughout both lung evans, also increased. Dictated by: Dictated on workstation # [id number]
[2016-11-25 19:35] LABS: CALCIUM 9.6 MG/DL (8.5-10.1); ICTERUS 0.3 (-100-1.9); POTASSIUM 4.5 MMOL/L (3.6-5.0); hs C REACTIVE PROTEIN 2.65 MG/DL (0.00-0.50)
--- NOTE | 2016-11-25 19:38 | ED General ---
General Chief Complaint: Respiratory Problems Stated Complaint: RESP DISTRESS Source of Information: Patient Exam Limitations: No Limitations History of Present Illness Time Seen by Provider: 19:00 Initial Comments This 76-year-old resident of [facility] is brought to the emergency room via EMS for complaints of respiratory distress. He was recently admitted to the hospital from November 19- pneumonia and sepsis with respiratory distress. EMS reports his oxygen saturation was 96 percent on 3 L. He last received a DuoNeb treatment at 16:15. Patient reports he does feel short of breath and he is forcing his expirations. The assisted reports he has significant difficulty breathing when he eats. He has very hard of hearing and therefore has difficulty communicating. He also has history of dementia and head trauma. EMS reports crackles in the lower lobes. He is afebrile at present but tachycardic. Allergies and Home Medications Allergies Coded Allergies: No Known Drug Allergies (Unverified , 03/14/16) Home Medications Albuterol Sulfate 2.5 Mg/3 Ml Vial.neb, 2.5 MG IH RTQ4HR PRN for SHORTNESS OF BREATH for 30 Days, #90 scheduled treatment tid x 5 days then prn shortness of breath Prescribed by: ELISE GARCIA on 11/24/16 0913 Amoxicillin/Potassium Clav 1 Each Tablet, 1 EACH PO BID for 7 Days, #14 Prescribed by: ELISE GARCIA on 11/24/16 0913 Aspirin 81 Mg Tablet.dr, 81 MG PO DAILY, (Reported) Atorvastatin Calcium 20 Mg Tablet, 20 MG PO HS, (Reported) Cetirizine HCl 10 Mg Tablet, 10 MG PO DAILY, (Reported) Insulin Aspart 100 Unit/1 Ml Susp, 10 UNITS SQ TIDWM, (Reported) Insulin Glargine,Hum.rec.anlog 100 Unit/1 Ml Vial, 38 UNITS SQ DAILY, (Reported) Insulin Glargine,Hum.rec.anlog 100 Unit/1 Ml Vial, 50 UNITS SQ HS, (Reported) Lactobacillus Acidophilus 1 Each Capsule, 1 EACH PO TID for 30 Days, #90 Prescribed by: ELISE GARCIA on 11/24/16 0913 Lipase/Protease/Amylase 1 Each Capsule.dr, 15,000 UNITS PO TID, (Reported) Melatonin/Pyridoxine 1 Each Tablet, 3 MG PO HS, (Reported) Omeprazole 20 Mg Capsule.dr, 20 MG PO DAILY, (Reported) Polyethylene Glycol 3350 17 Gm Powd.pack, 17 GM PO DAILY, (Reported) Rivastigmine 1 Each Patch.td24, 4.6 MG TD DAILY, (Reported) Sertraline HCl 25 Mg Tablet, 25 MG PO DAILY, (Reported) Tamsulosin HCl 0.4 Mg Cap.er.24h, 0.4 MG PO 1700, (Reported) Trazodone HCl 50 Mg Tablet, 50 MG PO HS, (Reported) Constitutional: no symptoms reported EENTM: see HPI Respiratory: see HPI Cardiovascular: see HPI Gastrointestinal: no symptoms reported Genitourinary: no symptoms reported Musculoskeletal: no symptoms reported Skin: no symptoms reported Psychiatric/Neurological: See HPI Hematologic/Lymphatic: No Symptoms Reported Past Wpraawi-Ksqmcc-Ipmzgo Hx Patient Social History Type Used: Cigarettes Former Smoker/When Quit: October 24, 1998 2nd Hand Smoke Exposure: No Recent Hopitalizations: No Immunizations Up To Date Tetanus Booster (TDap): Unknown PED Vaccines UTD: No Date of Pneumonia Vaccine: Jun 07, 2014 Date of Influenza Vaccine: Jun 07, 2014 Seasonal Allergies Seasonal Allergies: Yes Surgeries HX Surgeries: Yes Surgeries: Abdominal, Cardiac, Coronary Stent, Neurological Respiratory Hx Respiratory Disorders: Yes Respiratory Disorders: Pneumonia, COPD Cardiovascular Hx Cardiac Disorders: Yes (congestive heart failure) Cardiac Disorders: Coronary Artery Disease, Heart Attack, High Cholesterol, Hypertension Neurological Hx Neurological Disorders: Yes Neurological Disorders: Dementia, Traumatic Brain Injury Reproductive System Hx Reproductive Disorders: No Sexually Transmitted Disease: No HIV/AIDS: No Genitourinary Hx Genitourinary Disorders: Yes Genitourinary Disorders: Prostate Problems, UTI-Chronic Gastrointestinal Hx Gastrointestinal Disorders: Yes Gastrointestinal Disorders: Pancreatitis Musculoskeletal Hx Musculoskeletal Disorders: Yes Musculoskeletal Disorders: Arthritis Endocrine Hx Endocrine Disorders: Yes Endocrine Disorders: Diabetes, Insulin dep HEENT HX ENT Disorders: Yes HEENT Disorders: Cataract Loss of Vision: Denies Hearing Impairment: Hard of Hearing, Hearing Aide Left Cancer Hx Cancer: No Psychosocial Hx Psychiatric Problems: No Behavioral Health Disorders: Depression Integumentary HX Skin/Integumentary Disorder: No Blood Transfusions Hx Blood Disorders: No Adverse Reaction to a Blood Tr: No Family Medical History Significant Family History: Heart Disease, Cancer, Diabetes Family Medial History: Alcoholism 19 FATHER Arthritis 19 MOTHER Cataracts 19 FATHER G8 BROTHER G8 SISTER FH: esophageal cancer 19 MOTHER FH: hearing loss 19 FATHER 19 MOTHER G8 BROTHER G8 SISTER Myocardial infarction G8 BROTHER Physical Exam-Suspected Sepsis Physical Exam Vital Signs Vital Sign - Last 12Hours 11/25/16 18:45 Temp 97.9 Pulse 107 Resp 18 B/P (MAP) 94/60 Pulse Ox 96 O2 Delivery Nasal Cannula O2 Flow Rate 4.00 Capillary Refill : General Appearance: No Apparent Distress, WD/WN HEENT: PERRL/EOMI, Normal ENT Inspection, Other (very hard of hearing) Neck: Normal Inspection Respiratory: Crackles (bibasilar), Decreased Breath Sounds (decreased air movement, accessory muscle use with expiratory phase), Respiratory Distress Cardiovascular: Regular Rate, Rhythm, No Edema, No Murmur Gastrointestinal: Normal Bowel Sounds, Non Tender, Soft Extremity: Normal Capillary Refill, Normal Inspection, No Pedal Edema Neurologic/Psychiatric: Alert, No Motor/Sensory Deficits, Other (extremely hard of hearing) Skin: normal color, warm/dry Focused Exam Evaluation Sepsis Stage: Ruled Out Time of Focused Exam: 20:15 Respiratory: Lungs Clear, Normal Breath Sounds, No Accessory Muscle Use, No Respiratory Distress Cardiovascular: Regular Rate, Rhythm, No Edema, No Murmur Capillary Refill: Less Than 3 Seconds Skin: normal color, warm/dry Lactic Acid Level Progress/Results/Core Measures Suspected Sepsis SIRS Temperature: Pulse: Respiratory Rate: Laboratory Tests 11/25/16 19:05: White Blood Count 6.9 Blood Pressure / Mean: Laboratory Tests 11/25/16 19:05: Creatinine 1.47H, Platelet Count 145 Results/Orders Lab Results Laboratory Tests Test 11/25/16 19:05 11/25/16 22:00 Range/Units White Blood Count 6.9 4.3-11.0 10^3/uL Red Blood Count 4.18 L 4.35-5.85 10^6/uL Hemoglobin 11.5 L 13.3-17.7 G/DL Hematocrit 37 L 40-54 % Mean Corpuscular Volume 88 80-99 FL Mean Corpuscular Hemoglobin 28 25-34 PG Mean Corpuscular Hemoglobin Concent 31 L 32-36 G/DL Red Cell Distribution Width 13.4 10.0-14.5 % Platelet Count 145 130-400 10^3/uL Mean Platelet Volume 10.3 7.4-10.4 FL Neutrophils (%) (Auto) 76 H 42-75 % Lymphocytes (%) (Auto) 13 12-44 % Monocytes (%) (Auto) 10 0-12 % Eosinophils (%) (Auto) 1 0-10 % Basophils (%) (Auto) 0 0-10 % Neutrophils # (Auto) 5.3 1.8-7.8 X 10^3 Lymphocytes # (Auto) 0.9 L 1.0-4.0 X 10^3 Monocytes # (Auto) 0.7 0.0-1.0 X 10^3 Eosinophils # (Auto) 0.1 0.0-0.3 10^3/uL Basophils # (Auto) 0.0 0.0-0.1 10^3/uL Sodium Level 138 135-145 MMOL/L Potassium Level 4.5 3.6-5.0 MMOL/L Chloride Level 100 98-107 MMOL/L Carbon Dioxide Level 27 21-32 MMOL/L Anion Gap 11 5-14 MMOL/L Blood Urea Nitrogen 26 H 7-18 MG/DL Creatinine 1.47 H 0.60-1.30 MG/DL Estimat Glomerular Filtration Rate 46 BUN/Creatinine Ratio 18 0-20 Glucose Level 416 *H 70-105 MG/DL Lactic Acid Level 2.35 *H 3.22 *H 0.50-2.00 MMOL/L Calcium Level 9.6 8.5-10.1 MG/DL C-Reactive Protein High Sensitivity 2.65 H 0.00-0.50 MG/DL B-Type Natriuretic Peptide 995.7 H <100.0 PG/ML My Orders Orders - MICAELA OLIVIA MD Chest 1 View, Ap/Pa Only (11/25/16 18:57) Basic Metabolic Panel (11/25/16 18:57) BNP (11/25/16 18:57) Cbc With Automated Diff (11/25/16 18:57) Hs C Reactive Protein (11/25/16 18:57) Blood Culture (11/25/16 18:57) Saline Lock/Iv-Start (11/25/16 18:57) Monitor-Rhythm Ecg Trace Only (11/25/16 18:57) Albuterol/Ipra Inhalation Soln (Duoneb I (11/25/16 19:00) Lactic Acid Analyzer (11/25/16 18:57) Svn Sm Volume Nebulizer Rt-Rfs (11/25/16 18:57) Piperacillin Sodium/Tazobactam (Zosyn Vi (11/25/16 19:45) Insulin (Regular) Human (Humulin R (Per (11/25/16 20:00) Furosemide Injection (Lasix Injection) (11/25/16 20:30) Medications Given in ED Current Medications Medications Dose Ordered Sig/Paulino Route Start Time Stop Time Status Last Admin Dose Admin Albuterol/ Ipratropium 3 ml ONCE ONCE INH 11/25/16 19:00 11/25/16 19:01 DC 11/25/16 19:28 3 ML Furosemide 40 mg ONCE ONCE IVP 11/25/16 20:30 11/25/16 20:31 DC 11/25/16 21:09 40 MG Insulin Human Regular 5 unit ONCE ONCE SC 11/25/16 20:00 11/25/16 20:01 DC 11/25/16 20:16 5 UNIT Piperacillin Sod/ Tazobactam Sod 4.5 gm/Sodium Chloride 100 ml @ 200 mls/hr ONCE ONCE IV 11/25/16 19:45 11/25/16 20:14 DC 11/25/16 20:16 200 MLS/HR Vital Signs/I&O Vital Sign - Last 12Hours 11/25/16 11/25/16 11/25/16 11/25/16 18:45 19:29 21:30 22:00 Temp 97.9 97.9 Pulse 107 92 Resp 18 21 B/P (MAP) 94/60 98/77 Pulse Ox 96 99 98 O2 Delivery Nasal Cannula Nasal Cannula Nasal Cannula Nasal Cannula O2 Flow Rate 4.00 4.00 2.00 4.00 11/25/16 11/25/16 11/25/16 11/26/16 22:00 22:02 23:40 01:00 Temp 97.9 Pulse 92 95 102 Resp 20 B/P (MAP) 106/59 Pulse Ox 98 100 O2 Delivery Nasal Cannula Nasal Cannula Nasal Cannula O2 Flow Rate 2.00 4.00 4.00 11/26/16 11/26/16 11/26/16 11/26/16 01:48 03:35 03:50 04:40 Temp 97.7 96.6 Pulse 100 103 Resp 24 B/P (MAP) 163/87 105/58 Pulse Ox 99 91 94 96 O2 Delivery Nasal Cannula Nasal Cannula Nasal Cannula Nasal Cannula O2 Flow Rate 4.00 2.00 2.00 4.00 Capillary Refill : Progress Note : Progress Note patient received a septic workup. Chest x-ray showed worsening signs of congestion and infiltrate. Zosyn was administered in the ER. Case was reviewed with Dr. Garcia and Dr. Armendariz. Dr. Armendariz believes this is likely more of a CHF exacerbation scenario then worsening pneumonia. He recommends continuing oral antibiotics and treating with more aggressive diuresis. Lasix 40 mg IV was ordered to initiate in the ER. Dr. Garcia requested Haldol when necessary for agitation. This was added to the bridging orders. Patient was given 5 units of insulin in the emergency room. His long-acting Lantus will be continued along with sliding scale insulin. Patient did not meet sepsis criteria. Diagnostic Imaging Diagonstic Imaging: Xray Plain Films/CT/US/NM/MRI: chest Comments Chest x-ray viewed by me and report reviewed. See report below: NAME: ELIZABETH PHAM [facility] REC#: [id number] PT STATUS: REG ER : 1940 PHYSICIAN: MICAELA OLIVIA MD ADMIT DATE: 11/25/16/ER Draft Date of Exam:11/25/16 CHEST 1 VIEW, AP/PA ONLY INDICATION: Respiratory distress. TECHNIQUE: Single-view chest at 7:15 p.m. CORRELATION STUDY: 11/24/2016. FINDINGS: Heart size remains enlarged. Mediastinum is prominent. Vasculature overall appears increased. Increasing densities throughout both lung evans are present. There is also what appears to be increasing fluid, particularly along the fissure plane in the right midlung. IMPRESSION: 1. Overall increasing severity of congestive changes of the chest suggested along with bilateral pleural effusions. Scattered areas of infiltrate or edema throughout both lung evans, also increased. Dictated on workstation # [id number] Dict: 11/25/161925 Trans: 11/25/161928 [id number] [id number] Interpreted by: JAMSHID RENTERIA DO Departure Communication Time/Spoke to Admitting Phy: 20:[address] Garcia Time/Spoke to Consulting Physi: 20:20 Communication/Consulting Dr. Armendariz Impression Impression: Primary Impression: CHF exacerbation Qualified Codes: I50.9 - Heart failure, unspecified Additional Impressions: Pneumonia Qualified Codes: J18.9 - Pneumonia, unspecified organism COPD exacerbation Renal insufficiency Disposition: ADMITTED INPATIENT Condition: Improved Decision to Admit Reason: Admit from ER (General) Decision to Admit/Date: Nov 25, 2016 Time/Decision to Admit Time: 19:40 Departure-Patient Inst. Referrals: MYKEL RAMOS MD (PCP/Family) Primary Care Physician MICAELA OLIVIA MD Nov 25, 2016 19:38
[2016-11-25] MEDS ORDERED: PIPERACILLIN SODIUM/TAZOBACTAM 4.5 GM in NS (IVPB) 100 ML IV ONE (19:45)
[2016-11-25] MEDS ORDERED: inSUlin (REGULAR) HUMAN 1 UNIT/0.01 ML (CHARGE PER UNIT) SC ONE (20:00)
[2016-11-25 20:04] LABS: CREATININE SERUM 1.47 MG/DL (0.60-1.30)
[2016-11-25] MEDS ORDERED: FUROSEMIDE 40 MG/4 ML INJ (LASIX) IVP ONE (20:30)
[2016-11-25 22:00] VITALS: BP 122/58
[2016-11-25] MEDS ORDERED: HALOPERIDOL 5 MG/ML (HALDOL) AMP IM PRN (23:15)
[2016-11-25 23:40] VITALS: BP 106/59
[2016-11-26] MEDS: inSUlin DETERMIR 1 UNIT/0.01 ML (LEVEMIR) CHARGE PER UNIT SQ SCH ×3 (00:39→21:03)
[2016-11-26] MEDS: KCL 10 MEQ TAB (MICRO K) PO SCH ×2 (00:39→09:08)
[2016-11-26] MEDS: LEVOFLOXACIN 500 MG TAB (LEVAQUIN) PO SCH ×2 (00:39→11:31)
[2016-11-26] MEDS: RT-ALBUTEROL/IPRATROPIUM 3 ML (DUONEB) VIAL IH SCH ×6 (01:48→21:33)
[2016-11-26 03:35] VITALS: BP 163/87
[2016-11-26] MEDS: RT-ALBUTEROL SULF 2.5 MG/3 ML PRE-MIX VIAL IH PRN (03:50)
[2016-11-26 04:40] VITALS: BP 105/58
[2016-11-26] MEDS: inSUlin (REGULAR) HUMAN 1 UNIT/0.01 ML (CHARGE PER UNIT) SC SCH ×4 (05:03→21:03)
[2016-11-26 06:07] LABS: BASOPHILS % (AUTO) 0 % (0-10); EOSINOPHILS # (AUTO) 0.1 10^3/uL (0.0-0.3); EOSINOPHILS % (AUTO) 2 % (0-10); LYMPHOCYTES # (AUTO) 0.8 X 10^3 (1.0-4.0); LYMPHOCYTES % (AUTO) 12 % (12-44); MEAN CORPUSCULAR HEMOGLOBIN 28 PG (25-34); MEAN CORPUSCULAR HGB CONC 32 G/DL (32-36); MEAN CORPUSCULAR VOLUME 87 FL (80-99); MEAN PLATELET VOLUME 10.2 FL (7.4-10.4); MONOCYTES # (AUTO) 0.9 X 10^3 (0.0-1.0); MONOCYTES % (AUTO) 13 % (0-12); NEUTROPHILS # (AUTO) 5.1 X 10^3 (1.8-7.8); NEUTROPHILS % (AUTO) 73 % (42-75); PLATELET COUNT 134 10^3/uL (130-400); RED BLOOD COUNT 4.21 10^6/uL (4.35-5.85); RED CELL DISTRIBUTION WIDTH 13.3 % (10.0-14.5); WHITE BLOOD COUNT 6.9 10^3/uL (4.3-11.0)
[2016-11-26 06:19] LABS: BILIRUBIN,URINE NEGATIVE (NEGATIVE); KETONES,URINE NEGATIVE (NEGATIVE); LEUKOCYTE ESTERASE ,URINE NEGATIVE (NEGATIVE); NITRITE,URINE NEGATIVE (NEGATIVE); PH,URINE 5 (5-9); PROTEIN,URINE NEGATIVE (NEGATIVE); UROBILINOGEN,URINE NORMAL (NORMAL)
[2016-11-26 06:27] LABS: SQUAMOUS EPITHELIAL CELL,UR RARE /HPF; WBC,URINE 0-2 /HPF
[2016-11-26 06:38] LABS: CREATININE SERUM 1.26 MG/DL (0.60-1.30); ICTERUS 0.2 (-100-1.9)
--- NOTE | 2016-11-26 07:36 | Diagnostic Imaging Report ---
INDICATION: Congestive heart failure and COPD 0457 hours Portable upright view of the chest is obtained with comparison made to study of one day earlier. There is cardiomegaly and bilateral airspace disease. There is also mild bilateral pleural fluid including probable intrafissural fluid on the right. There is no evidence of pneumothorax. Old right rib fracture deformities are again noted. IMPRESSION: Stable bilateral airspace disease and bilateral pleural fluid. No new abnormality is detected. Dictated by: Dictated on workstation # [id number]
[2016-11-26 08:00] VITALS: BP 109/57
[2016-11-26] MEDS ORDERED: MULT-28 PO (08:16)
[2016-11-26] MEDS ORDERED: CALC500T3 PO (08:16)
[2016-11-26] MEDS ORDERED: PANT40TA3 PO (08:16)
[2016-11-26] MEDS ORDERED: LACT1CAP87 PO (08:16)
[2016-11-26] MEDS ORDERED: AMOX-358 PO (08:16)
[2016-11-26] MEDS ORDERED: ALBU2.5V4 NEB (08:16)
[2016-11-26] MEDS: AUGMENTIN 875 MG TAB (AMOXICILLIN/CLAVULANATE) PO SCH ×2 (09:08→21:14)
--- NOTE | 2016-11-26 09:18 | History & Physicial ---
History of Present Illness History of Present Illness Reason for visit/HPI PT IS A 76 Y/O MALE WHO IS KNOWN TO ME FROM RECENT HOSPITALIZATION. HE PRESENTED TO THE EMERGENCY DEPARTMENT AFTER HAVING ACUTE DYSPNEA WITH RESPIRATORY DISTRESS AT THE LONG TERM. HE HAD BEEN ADMITTED LAST WEEK WITH PNEUMONIA AND SEPSIS SYMPTOMS. HE WAS APPROPRIATELY TREATED WITH TRIPLE ANTIBIOTIC THERAPY, THE MEDICATION WAS DECREASED HIS SYMPTOMS STABILIZED AND HE WAS PLACED ON AUGMENTIN ON DISCHARGE. THE PATIENT WAS SENT BACK TO THE LONG TERM AND HE WAS DOING WELL FOR 2-3 DAYS, THEN HE WAS STARTING TO GET SHORT OF BREATH, THE NURSES AT THE LONG TERM INCREASED HIS OXYGEN FROM 2 LITERS TO 5 LITERS, HIS DYSPNEA WORSENED THEN THEY CALLED MY OFFICE AND WERE INSTRUCTED TO DECREASE HIS OXYGEN BACK DOWN TO 2 LITERS. HE IMPROVED SLIGHTLY THEN SYMPTOMS WORSENED OVER THE HOURS FROM 1PM TO 5PM AND THEY CALLED WITH [facility]ERN FOR WORSENING DYSPNEA HE WAS THEN SENT TO THE EMERGENCY DEPARTMENT AND FOUND TO HAVE ACUTE HEART FAILURE. Date of Admission Nov 25, 2016 at 20:46 Time Seen by Provider: 08:45 I consulted on this patient on 11/26/16 09:10 Attending Physician Elise Garcia MD Admitting Physician ELISE GARCIA MD Consult Allergies and Home Medications Allergies Coded Allergies: No Known Drug Allergies (Unverified , 03/14/16) Home Medications Albuterol Sulfate 2.5 Mg/3 Ml Vial.neb, 2.5 MG NEB UD, (Reported) 3X DAILY SCHEDULED X 5 DAYS 11-25-16 TO 11-29-16 THEN EVERY 4 HOURS NEEDED FOR SHORTNESS OF BREATH Amoxicillin/Potassium Clav 1 Each Tablet, 1 TAB PO BID for 7 Days, (Reported) 7 DAY THERAPY START DATE 11-24-16 1600 Aspirin 81 Mg Tablet.dr, 81 MG PO DAILY, (Reported) Atorvastatin Calcium 20 Mg Tablet, 20 MG PO HS, (Reported) Calcium Carbonate 500 Mg Tablet, 500 MG PO BID, (Reported) Cetirizine HCl 10 Mg Tablet, 10 MG PO DAILY, (Reported) Insulin Aspart 100 Unit/1 Ml Susp, 10 UNITS SQ TIDWM, (Reported) Insulin Glargine,Hum.rec.anlog 100 Unit/1 Ml Vial, 38 UNITS SQ DAILY, (Reported) Insulin Glargine,Hum.rec.anlog 100 Unit/1 Ml Vial, 50 UNITS SQ HS, (Reported) Lactobacillus Acidophilus 1 Each Capsule, 1 CAP PO TID, (Reported) Lipase/Protease/Amylase 1 Each Capsule.dr, 15,000 UNITS PO TID, (Reported) Melatonin/Pyridoxine 1 Each Tablet, 3 MG PO HS, (Reported) Multivits,Ca,Minerals/Iron/FA 1 Each Tablet, 1 TAB PO DAILY, (Reported) Omeprazole 20 Mg Capsule.dr, 20 MG PO DAILY, (Reported) Polyethylene Glycol 3350 17 Gm Powd.pack, 17 GM PO DAILY, (Reported) Rivastigmine 1 Each Patch.td24, 4.6 MG TD DAILY, (Reported) Sertraline HCl 25 Mg Tablet, 25 MG PO DAILY, (Reported) Tamsulosin HCl 0.4 Mg Cap.er.24h, 0.4 MG PO 1700, (Reported) Trazodone HCl 50 Mg Tablet, 50 MG PO HS, (Reported) Past Cypigfk-Itjbsu-Jxbxsp Hx Patient Social History Marrital Status: Living Status: LIVES AT [facility] Employed/Student: retired Alcohol Use: Denies Use Recreational Drug Use: No Smoking Status: Former Smoker Former smoker/When Quit: October 24, 1998 Type Used: Cigarettes 2nd Hand Smoke Exposure: No Physical Abuse Screen: No Sexual Abuse: No Recent Foreign Travel: No Contact w/other who traveled: No Recent Hopitalizations: No Recent Infectious Disease Expo: No Immunizations Up To Date Tetanus Booster (TDap): Unknown Date of Pneumonia Vaccine: Jun 07, 2014 Date of Influenza Vaccine: Jun 07, 2014 Seasonal Allergies Seasonal Allergies: Yes Surgeries HX Surgeries: Yes Surgeries: Abdominal, Cardiac, Coronary Stent, Neurological Respiratory Hx Respiratory Disorders: Yes Cardiovascular Hx Cardiovascular Disorders: Yes (congestive heart failure) Cardiac Disorders: Coronary Artery Disease, Heart Attack, High Cholesterol, Hypertension Neurological Hx Neurological Disorders: Yes Neurological Disorders: Dementia, Traumatic Brain Injury Reproductive System Hx Reproductive Disorders: No Sexually Transmitted Disease: No HIV/AIDS: No Genitourinary Hx Genitourinary Disorders: Yes Genitourinary Disorders: Prostate Problems, UTI-Chronic Gastrointestinal Hx Gastrointestinal Disorders: Yes Gastrointestinal Disorders: Pancreatitis Musculoskeletal Hx Musculoskeletal Disorders: Yes Musculoskeletal Disorders: Arthritis Endocrine Hx Endocrine Disorders: Yes Endocrine Disorders: Diabetes, Insulin dep HEENT HX ENT Disorders: Yes HEENT Disorders: Cataract Loss of Vision: Denies Hearing Impairment: Hard of Hearing, Hearing Aide Left Cancer Hx Cancer: No Psychosocial Hx Psychiatric Problems: Yes Behavioral Health Disorders: Depression Integumentary HX Skin/Integumentary Disorder: No Blood Transfusions Hx Blood Disorders: No Adverse Reaction to a Blood Tr: No Reviewed Nursing Assessment Reviewed/Agree w Nursing PMH: Yes Family Medical History Significant Family History: Heart Disease, Cancer, Diabetes Family Hx: Alcoholism 19 FATHER Arthritis 19 MOTHER Cataracts 19 FATHER G8 BROTHER G8 SISTER FH: esophageal cancer 19 MOTHER FH: hearing loss 19 FATHER 19 MOTHER G8 BROTHER G8 SISTER Myocardial infarction G8 BROTHER Constitutional: No chills, No fever, weakness EENTM: No hoarseness, No throat pain Respiratory: No cough, dyspnea on exertion, short of breath, No wheezing Cardiovascular: No chest pain, No edema, No palpitations Gastrointestinal: No abdominal pain, No nausea, No vomiting Genitourinary: no symptoms reported Musculoskeletal: no symptoms reported Psychiatric/Neurological: Anxiety, Depressed, Weakness, Other (DEMENTIA WITH BEHAVIOR DISORDER) All Other Systems Reviewed Negative Unless Noted: Yes Physical Exam Vital Signs Vital Sign - Last 12Hours 11/25/16 18:45 Temp 97.9 Pulse 107 Resp 18 B/P (MAP) 94/60 Pulse Ox 96 O2 Delivery Nasal Cannula O2 Flow Rate 4.00 Capillary Refill : Less Than 3 Seconds General Appearance: No Apparent Distress, WD/WN Eyes: Bilateral Eye EOMI, Bilateral Eye Normal Inspection, Bilateral Eye PERRL HEENT: PERRL/EOMI Neck: Full Range of Motion, Supple Respiratory: No Accessory Muscle Use, No Respiratory Distress, Crackles (VERY FAINTLY IN BASE ON RIGHT), Decreased Breath Sounds, No Wheezing Cardiovascular: Regular Rate, Rhythm, No Edema Gastrointestinal: Normal Bowel Sounds, No Organomegaly, No Pulsatile Mass, Non Tender, Soft Rectal: Deferred Back: Normal Inspection Extremity: Normal Capillary Refill, Non Tender, No Calf Tenderness, No Pedal Edema Neurologic/Psychiatric: Alert, Other (ORIENTED TO PERSON, NOT PLACE, TIME, ANGRY OUTBURSTS, IRRITABLE, AGITATED) Skin: Normal Color, Warm/Dry Lymphatic: No Adenopathy Assessment/Plan Assessment and Plan CONGESTIVE HEART FAILURE ACUTE RENAL INSUFFICIENCY DIABETES MELLITUS PNEUMONIA - RESOLVING VASCULAR DEMENTIA HYPERTENSION ESOPHAGEAL REFLUX BENIGN PROSTATIC HYPERTROPHY CONGESTIVE HEART FAILURE - ON LASIX- CONTINUE WITH IV LASIX AT THIS TIME - MONITOR SYMPTOMS, ECHOCARDIOGRAM ON 11/20/16 SHOWED CONCENTRIC HYPERTROPHY, EF OF 40-45%. RECENT CT SCAN SHOWED EFFUSION IN FISSURE ON RIGHT - REPEAT CT SCAN TODAY TO SEE IF THERE IS ENOUGH EFFUSION TO PULL OFF FLUID AND IMPROVE HIS OVERALL STATUS COPD - PT HAD BEEN ON OXYGEN AT 2 LITERS - THE STAFF AT THE LONG TERM INCREASED HIS OXYGEN TO 5 LITERS - I SUSPECT THIS CAUSED ELIZABETH TO HAVE CO2 NARCOSIS AND CAUSED WORSENING SYMPTOMS OF DYSPNEA, RESPIRATORY DISTRESS LEADING TO HIS RE-ADMISSION. HE DOES NOT HAVE SEPSIS. ACUTE RENAL INSUFFICIENCY - IMPROVED FROM ADMISSION - CONTINUE WITH LASIX, GENTLE HYDRATION PNEUMONIA - ON AUGMENTIN - CONTINUE WITH TREATMENT - MONITOR SYMPTOMS - NO NEED FOR IV ANTIBIOTICS AT THIS TIME. DIABETES MELLITUS - CONTINUE TO CHECK FSBS, SLIDING SCALE INSULIN VASCULAR DEMENTIA - SUPPORTIVE CARE -- STARTED HALDOL, PT HAS HISTORY OF A 2-3 WEEK STAY IN [facility] ABOUT 4 MONTHS PREVIOUS TO HIS ADMISSION TO [facility] IN [place]. HYPERTENSION - MONITOR BLOOD PRESSURE - RESTART BLOOD PRESSURE MEDICATION IF INDICATED WITH RAISE IN HIS BLOOD PRESSURE. ESOPHAGEAL REFLUX - RESTARTED PROTONIX. BENIGN PROSTATIC HYPERTROPHY - RESTART HIS FLOMAX. PT IS ON DVT PROPHYLAXIS - LOVENOX AND WILL USE COMPRESSION SOCKS SINCE HIS LEGS HAVE BEEN RESTLESS. I HAVE TALKED TO HIS DAUGHTER AND SHE REPORTS THAT HER FATHER IS A DNR/DNI Problems: Admission Diagnosis CONGESTIVE HEART FAILURE ACUTE RENAL INSUFFICIENCY DIABETES MELLITUS PNEUMONIA - RESOLVING VASCULAR DEMENTIA HYPERTENSION ESOPHAGEAL REFLUX BENIGN PROSTATIC HYPERTROPHY Clinical Quality Measures DVT/VTE Risk/Contraindication: Risk Factor Score Per Nursin RFS Level Per Nursing on Admit: 4+=Very High ELISE GARCIA MD Nov 26, 2016 09:18
[2016-11-26 09:51] LABS: ALBUMIN 3.7 GM/DL (3.2-4.5); BILIRUBIN,DIRECT 0.2 MG/DL (0.0-0.3); BILIRUBIN,INDIRECT 0.2 MG/DL; BILIRUBIN,TOTAL 0.4 MG/DL (0.1-1.0); ICTERUS 0.2 (-100-1.9); TOTAL PROTEIN 7.7 GM/DL (6.4-8.2)
[2016-11-26] MEDS: LIPASE/AMYLASE/PROTEASE (PANCRELIPASE) 5,000 UNITS CAP PO SCH ×2 (11:31→16:42)
[2016-11-26] MEDS: PANTOPRAZOLE 20 MG TABLET (PROTONIX) PO SCH (11:31)
[2016-11-26] MEDS: LACTOBACILLUS Acidoph/Bulgar (LACTINEX/FLORANEX) TAB PO SCH ×2 (11:31→16:42)
[2016-11-26] MEDS: MULTIVIT W/MINERALS TAB (THERAGRAN M) PO SCH (11:31)
[2016-11-26] MEDS: CALCIUM CARBONATE 500 MG (TUMS) TAB.CHEW PO SCH ×2 (11:31→21:13)
[2016-11-26] MEDS: LORATADINE (CLARITIN) 10 MG TAB PO SCH (11:31)
[2016-11-26] MEDS: SERTRALINE 50 MG (ZOLOFT) TABLET PO SCH (11:32)
[2016-11-26] MEDS: inSUlin ASPART (NovoLOG) 1 UNIT/0.01 ML (CHARGE PER UNIT) SQ SCH ×2 (11:32→16:43)
[2016-11-26 12:05] VITALS: BP 110/59
[2016-11-26 16:00] VITALS: BP 102/59
[2016-11-26] MEDS: RIVASTIGMINE 4.6 MG PATCH (EXELON) TD SCH (16:42)
[2016-11-26] MEDS: ALFUZOSIN HCL 10 MG TAB (UROXATRAL) PO SCH (16:42)
[2016-11-26] MEDS: RIVASTIGMINE PATCH REMOVAL TP SCH (16:43)
[2016-11-26 19:53] VITALS: BP 115/62
[2016-11-26] MEDS: MELATONIN 3 MG TABLET PO SCH (21:14)
[2016-11-26] MEDS: ATORVASTATIN 20 MG (LIPITOR) TABLET PO SCH (21:14)
[2016-11-26] MEDS: traZODone 50 MG (DESYREL) TAB PO SCH (21:14)
[2016-11-27 00:23] VITALS: BP 124/75
[2016-11-27] MEDS: RT-ALBUTEROL/IPRATROPIUM 3 ML (DUONEB) VIAL IH SCH ×3 (01:53→09:48)
[2016-11-27 03:53] VITALS: BP 122/61
[2016-11-27] MEDS: RT-ALBUTEROL SULF 2.5 MG/3 ML PRE-MIX VIAL IH PRN (03:58)
[2016-11-27] MEDS: inSUlin (REGULAR) HUMAN 1 UNIT/0.01 ML (CHARGE PER UNIT) SC SCH ×4 (05:33→20:46)
[2016-11-27 06:01] LABS: ALBUMIN 3.5 GM/DL (3.2-4.5); BILIRUBIN,TOTAL 0.4 MG/DL (0.1-1.0); CALCIUM 9.4 MG/DL (8.5-10.1); CREATININE SERUM 1.38 MG/DL (0.60-1.30); ICTERUS 0.3 (-100-1.9); POTASSIUM 4.7 MMOL/L (3.6-5.0); TOTAL PROTEIN 7.2 GM/DL (6.4-8.2)
[2016-11-27] MEDS: inSUlin ASPART (NovoLOG) 1 UNIT/0.01 ML (CHARGE PER UNIT) SQ SCH ×3 (06:15→17:44)
[2016-11-27] MEDS: LACTOBACILLUS Acidoph/Bulgar (LACTINEX/FLORANEX) TAB PO SCH ×3 (06:15→17:43)
[2016-11-27] MEDS: MULTIVIT W/MINERALS TAB (THERAGRAN M) PO SCH (06:15)
[2016-11-27] MEDS: PANTOPRAZOLE 20 MG TABLET (PROTONIX) PO SCH (06:16)
[2016-11-27] MEDS: LIPASE/AMYLASE/PROTEASE (PANCRELIPASE) 5,000 UNITS CAP PO SCH ×3 (06:16→17:43)
[2016-11-27 08:00] VITALS: BP 93/55
[2016-11-27] MEDS: SERTRALINE 50 MG (ZOLOFT) TABLET PO SCH (08:43)
[2016-11-27] MEDS: AUGMENTIN 875 MG TAB (AMOXICILLIN/CLAVULANATE) PO SCH ×2 (08:43→20:46)
[2016-11-27] MEDS: LORATADINE (CLARITIN) 10 MG TAB PO SCH (08:44)
[2016-11-27] MEDS: CALCIUM CARBONATE 500 MG (TUMS) TAB.CHEW PO SCH ×2 (08:44→20:46)
[2016-11-27] MEDS: inSUlin DETERMIR 1 UNIT/0.01 ML (LEVEMIR) CHARGE PER UNIT SQ SCH (08:44)
[2016-11-27] MEDS: ASPIRIN E.C. 81 MG (ECOTRIN) TAB PO SCH (08:44)
[2016-11-27] MEDS: KCL 10 MEQ TAB (MICRO K) PO SCH (08:44)
[2016-11-27] MEDS: POLYETHYLENE GLYCOL 17 GM (MIRALAX) PACK PO SCH (08:44)
--- NOTE | 2016-11-27 09:18 | Progress Note (SOAP) ---
Subjective Date Seen by Provider: Nov 27, 2016 Time Seen by Provider: 08:50 Subjective/Events-last exam PT IS A 76 Y/O MALE WHO IS KNOWN TO ME FROM CLINIC. HE STATES THAT HE IS JUST NOT FEELING WELL TODAY. HE REPORTS "I NEVER FEEL GOOD". NURSING STAFF REPORTS THAT HE GOT HALDOL YESTERDAY EVENING AND HE ALSO HAD A LOW BLOOD GLUCOSE LAST NIGHT WITH A GLUCOSE IN THE 30'S. Review of Systems General: No Chills, Fatigue, Malaise HEENT: No Head Aches Pulmonary: Dyspnea, No Cough Cardiovascular: No: Chest Pain, Palpitations Gastrointestinal: No: Abdominal Pain, Nausea Neurological: Confusion, Weakness Objective Exam Vital Signs Date Time Temp Pulse Resp B/P (MAP) Pulse Ox O2 Delivery O2 Flow Rate FiO2 11/27/16 08:00 96.6 109 20 93/55 98 Nasal Cannula 4.00 11/27/16 07:00 124 11/27/16 06:26 98 Nasal Cannula 4.00 11/27/16 03:59 98 Nasal Cannula 4.00 11/27/16 03:53 98.0 102 19 122/61 95 Nasal Cannula 4.00 11/27/16 01:53 98 Nasal Cannula 4.00 11/27/16 01:00 109 11/27/16 00:23 97.1 111 20 124/75 98 Nasal Cannula 4.00 11/26/16 21:34 95 Nasal Cannula 4.00 11/26/16 20:38 Nasal Cannula 4.00 11/26/16 19:53 97.7 104 20 115/62 99 Nasal Cannula 4.00 11/26/16 19:24 99 Nasal Cannula 4.00 11/26/16 16:00 97.9 97 18 102/59 99 Nasal Cannula 4.00 11/26/16 14:48 96 Nasal Cannula 4.00 11/26/16 13:50 101 11/26/16 12:05 98.0 103 20 110/59 99 Nasal Cannula 4.00 11/26/16 10:07 97 Nasal Cannula 4.00 I & O 11/27/16 07:00 Intake Total 2010 ml Output Total 975 ml Balance 1035 ml Capillary Refill : Less Than 3 Seconds General Appearance: No Apparent Distress, WD/WN HEENT: PERRL/EOMI Neck: Full Range of Motion, Supple Respiratory: Chest Non Tender, Decreased Breath Sounds, Wheezing Cardiovascular: Tachycardia Gastrointestinal: normal bowel sounds, non tender, soft, no organomegaly, no pulsatile mass Extremity: Normal Capillary Refill, No Pedal Edema Neurologic/Psychiatric: Alert, Other (ORIENTED TO PERSON, NOT PLACE OR TIME) Skin: Warm/Dry Lymphatic: No Adenopathy Results Lab Laboratory Tests 11/26/16 11:14: Glucometer 166H 11/26/16 16:06: Glucometer 75 11/26/16 20:42: Glucometer 90 11/26/16 23:34: Glucometer 66L 11/26/16 23:53: Glucometer 79 11/27/16 00:20: Glucometer 75 11/27/16 01:30: Glucometer 119H 11/27/16 05:19: Glucometer 374H 11/27/16 05:20: Sodium Level 134L, Potassium Level 4.7, Chloride Level 94L, Carbon Dioxide Level 24, Anion Gap 16H, Blood Urea Nitrogen 23H, Creatinine 1.38H, Estimat Glomerular Filtration Rate 50, BUN/Creatinine Ratio 17, Glucose Level 405*H, Calcium Level 9.4, Total Bilirubin 0.4, Aspartate Amino Transf (AST/SGOT) 41H, Alanine Aminotransferase (ALT/SGPT) 30, Alkaline Phosphatase 74, Total Protein 7.2, Albumin 3.5 11/27/16 06:12: Glucometer 409*H Microbiology 11/25/16 Blood Culture - Preliminary, Resulted No growth Assessment/Plan Assessment/Plan Assess & Plan/Chief Complaint CONGESTIVE HEART FAILURE ACUTE RENAL INSUFFICIENCY DIABETES MELLITUS PNEUMONIA - RESOLVING VASCULAR DEMENTIA HYPERTENSION ESOPHAGEAL REFLUX BENIGN PROSTATIC HYPERTROPHY CONGESTIVE HEART FAILURE - ON LASIX- CONTINUE WITH IV LASIX AT THIS TIME - MONITOR SYMPTOMS, ECHOCARDIOGRAM ON 11/20/16 SHOWED CONCENTRIC HYPERTROPHY, EF OF 40-45%. RECENT CT SCAN SHOWED EFFUSION IN FISSURE ON RIGHT COPD - PT HAD BEEN ON OXYGEN AT 2 LITERS - THE STAFF AT THE [facility] INCREASED HIS OXYGEN TO 5 LITERS - I SUSPECT THIS CAUSED ELIZABETH TO HAVE CO2 NARCOSIS AND CAUSED WORSENING SYMPTOMS OF DYSPNEA, RESPIRATORY DISTRESS LEADING TO HIS RE-ADMISSION. HE DOES NOT HAVE SEPSIS. ACUTE RENAL INSUFFICIENCY - IMPROVED FROM ADMISSION - CONTINUE WITH LASIX, GENTLE HYDRATION PNEUMONIA - ON AUGMENTIN - CONTINUE WITH TREATMENT - MONITOR SYMPTOMS - NO NEED FOR IV ANTIBIOTICS AT THIS TIME. DIABETES MELLITUS - CONTINUE TO CHECK FSBS, SLIDING SCALE INSULIN - HIS BLOOD GLUCOSE DROPPED TO 35 PER NURSING REPORT - THAT FSBS WAS NOT DOCUMENTED IN THE LABS SECTION - I WILL DECREASE HIS LEVEMIR DOSE FOR NIGHT-TIME USE. VASCULAR DEMENTIA - SUPPORTIVE CARE -- STARTED HALDOL, PT HAS HISTORY OF A 2-3 WEEK STAY IN [facility] ABOUT 4 MONTHS PREVIOUS TO HIS ADMISSION TO [facility] IN [place]. HYPOTENSION - GIVE A SMALL BOLUS OF FLUID THIS MORNING, AND WILL CONSULT DR. CASTLE - HIS HYPOTENSION IN FACE OF TACHYCARDIA IS CONCERNING, MAY BE PARTIALLY DUE TO MEDICATION (BREATHING TREATMENTS) CAUSING HIS TACHYCARDIA. ESOPHAGEAL REFLUX - RESTARTED PROTONIX. BENIGN PROSTATIC HYPERTROPHY - RESTART HIS FLOMAX. WEAKNESS - START PHYSICAL THERAPY TODAY. PT IS ON DVT PROPHYLAXIS - LOVENOX AND WILL USE COMPRESSION SOCKS SINCE HIS LEGS HAVE BEEN RESTLESS. I HAVE TALKED TO HIS DAUGHTER AND SHE REPORTS THAT HER FATHER IS A DNR/DNI Clinical Quality Measures DVT/VTE Risk/Contraindication: Risk Factor Score Per Nursin RFS Level Per Nursing on Admit: 4+=Very High ELISE JUNIOR MD Nov 27, 2016 09:18
[2016-11-27] MEDS ORDERED: FUROSEMIDE 40 MG/4 ML INJ (LASIX) IVP NR (09:19)
[2016-11-27] MEDS: NS IV 1000 ML 250 ML IV SCH ×2 (09:30→12:26)
--- NOTE | 2016-11-27 10:10 | Consultation-Cardiology ---
HPI-Cardiology Cardiology Consultation Date of Consultation 11/27/16 Date of Admission Time Seen by Provider: 10:02 Indication: Shortness of breath HPI 76 years old gentleman with history of dementia, significant hearing loss, was in the hospital recently for pneumonia and received appropriate treatment, was readmitted for worsening shortness of breath. Patient expressed that he has been having worsening dyspnea, he cannot breathe. He is sitting upright. Denied any chest pain. Denied any pedal edema. Denied any claudication. Denied any syncope or near syncopal episodes. He is overall a poor historian, most of the history was obtained by reviewing his records. Home Medications & Allergies Allergies: Coded Allergies: No Known Drug Allergies (Unverified , 03/14/16) Home Medication List Reviewed: Yes MFN-[id number]-Ecxafd Hx Patient Social History Marital Status: Living Status: LIVES AT [facility] Employed/Student: retired Alcohol Use: Denies Use Recreational Drug Use: No Smoking Status: Former Smoker Former smoker/When Quit: October 24, 1998 Type Used: Cigarettes 2nd Hand Smoke Exposure: No Recent Foreign Travel: No Recent Infectious Disease Expo: No Recent Hopitalizations: No Physical Abuse Screen: No Sexual Abuse: No Immunizations Up To Date Tetanus Booster (TDap): Unknown Date of Pneumonia Vaccine: Jun 07, 2014 Date of Influenza Vaccine: Jun 07, 2014 Past Medical History past medical history as discussed below Family Medical History Significant Family History: Heart Disease, Cancer, Diabetes Family History: 19 FATHER FH: hearing loss Cataracts Alcoholism 19 MOTHER FH: esophageal cancer FH: hearing loss Arthritis G8 BROTHER FH: hearing loss Cataracts Myocardial infarction G8 SISTER FH: hearing loss Cataracts Constitutional: see HPI, malaise, weakness EENTM: hearing loss, see HPI Respiratory: see HPI, orthopnea, short of breath Cardiovascular: see HPI, No chest pain, No edema, No Hx of Intervention, No palpitations, No syncope, No vascular heart diseas, No other Gastrointestinal: no symptoms reported, see HPI Genitourinary: no symptoms reported, see HPI Musculoskeletal: see HPI, muscle stiffness, muscle weakness Skin: no symptoms reported, see HPI Psychiatric/Neurological: No Symptoms Reported, See HPI Reviewed Test Results Reviewed Test Results Lab Laboratory Tests Test 11/26/16 11:14 11/26/16 16:06 11/26/16 20:42 11/26/16 23:34 Range/Units Glucometer 166 H 75 90 66 L 70-110 MG/DL Test 11/26/16 23:53 11/27/16 00:20 11/27/16 01:30 11/27/16 05:19 Range/Units Glucometer 79 75 119 H 374 H 70-110 MG/DL Test 11/27/16 05:20 11/27/16 06:12 Range/Units Sodium Level 134 L 135-145 MMOL/L Potassium Level 4.7 3.6-5.0 MMOL/L Chloride Level 94 L 98-107 MMOL/L Carbon Dioxide Level 24 21-32 MMOL/L Anion Gap 16 H 5-14 MMOL/L Blood Urea Nitrogen 23 H 7-18 MG/DL Creatinine 1.38 H 0.60-1.30 MG/DL Estimat Glomerular Filtration Rate 50 BUN/Creatinine Ratio 17 0-20 Glucose Level 405 *H 70-105 MG/DL Calcium Level 9.4 8.5-10.1 MG/DL Total Bilirubin 0.4 0.1-1.0 MG/DL Aspartate Amino Transf (AST/SGOT) 41 H 5-34 U/L Alanine Aminotransferase (ALT/SGPT) 30 0-55 U/L Alkaline Phosphatase 74 40-136 U/L Total Protein 7.2 6.4-8.2 GM/DL Albumin 3.5 3.2-4.5 GM/DL Glucometer 409 *H 70-110 MG/DL Physical Exam Vital Signs Vital Sign - Last 12Hours 11/25/16 18:45 Temp 97.9 Pulse 107 Resp 18 B/P (MAP) 94/60 Pulse Ox 96 O2 Delivery Nasal Cannula O2 Flow Rate 4.00 Capillary Refill : Less Than 3 Seconds General Appearance: WD/WN, Moderate Distress Eyes: Bilateral Eye EOMI, Bilateral Eye Normal Inspection, Bilateral Eye PERRL HEENT: PERRL/EOMI, TMs Normal, Normal ENT Inspection, Pharynx Normal Neck: Full Range of Motion, Normal Inspection, Non Tender, Supple, Carotid Bruit Respiratory: Chest Non Tender, No Accessory Muscle Use, No Respiratory Distress , Crackles, Decreased Breath Sounds, Inspiration Cardiovascular: Regular Rate, Rhythm, No Edema, No Gallop, No JVD, Normal Peripheral Pulses, Systolic Murmur Gastrointestinal: Normal Bowel Sounds, No Organomegaly, No Pulsatile Mass, Non Tender, Soft Back: Normal Inspection, No CVA Tenderness, No Vertebral Tenderness Extremity: Normal Capillary Refill, Normal Inspection, Normal Range of Motion, Non Tender, No Calf Tenderness, No Pedal Edema Neurologic/Psychiatric: Alert, Oriented x3, No Motor/Sensory Deficits, Normal Mood/Affect Skin: Normal Color, Warm/Dry Lymphatic: No Adenopathy A/P-Cardiology Admission Diagnosis Abnormal EKG Coronary artery disease Congestive heart failure Shortness of breath Assessment/Plan Abnormal EKG with poor R-wave progression suggestive of anterior wall DC, the EKG finding were present on his previous admission on November 19, 2016. Had similar finding in 2016 but less prominent. Denied any chest pain. I will continue on aspirin, use low dose Lovenox and monitor his troponin. Evaluate 2- D echocardiogram. History of coronary artery disease with multiple interventions, last record reported a stenting done at [facility] on February 28, 2015 to the LAD using 2.2524 mm stent and 3.538 mm stent and 2.7512 mm stent, the report did not mention if it was a drug-eluting stent or bare-metal stent. Also had another stenting to the obtuse marginal branch of 2.538 mm with kissing balloon angioplasty to OM1 and OM 2. The right coronary artery had 70 percent lesion and FFR was done and it was 0.85. It was not stented at that time. History of congestive heart failure with left ventricular systolic and diastolic dysfunction, last echocardiogram was reported to have ejection fraction 45 percent with diastolic dysfunction in 2014, I will reevaluate 2-D echocardiogram Shortness of breath, worsening dyspnea, recent pneumonia, history of congestive heart failure, had bilateral crackles at the bases on exam, receiving oxygen, I will restart his home medication monitor. Acute on chronic renal insufficiency. Slightly worsening renal function, continue to monitor closely. 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 History of chronic borderline hypotension. Continue to monitor blood pressure. History of mild dementia History of pancreatitis Clinical Quality Measures DVT/VTE Risk/Contraindication: Risk Factor Score Per Nursin RFS Level Per Nursing on Admit: 4+=Very High DONNIE CASTLE MD Nov 27, 2016 10:10
[2016-11-27] MEDS ORDERED: RT-LEVALBUTEROL (XOPENEX) 1.25 MG/3 ML NEB NON-FORMULARY INH PRN (10:45)
[2016-11-27] MEDS ORDERED: LORazepam INJ 2 MG/ML (ATIVAN) VIAL IVP NR (10:45)
[2016-11-27] MEDS ORDERED: LEVOFLOXACIN 250 MG TAB (LEVAQUIN) PO SCH (11:00)
[2016-11-27] MEDS: ENOXAPARIN 40 MG/0.4 ML (LOVENOX) SYR SC SCH (11:09)
[2016-11-27] MEDS: NS IV 1000 ML 1,000 ML IV SCH ×2 (11:50→20:50)
[2016-11-27 12:00] VITALS: BP 111/68
[2016-11-27] MEDS: RT-LEVALBUTEROL (XOPENEX) 1.25 MG/3 ML NEB NON-FORMULARY INH SCH ×2 (14:28→21:58)
--- NOTE | 2016-11-27 14:50 | Physical Therapy Progress Note ---
Therapy Progress Note Evaluation order received, chart reviewed, eval attempted. Evaluation could not be completed because patient was too lethargic and could not be roused. He would open his eyes a little but just for a few seconds. His family member states that when he gets like this, he cannot be roused. Will try again tomorrow. JUS LUNDBERG PT Nov 27, 2016 14:50
[2016-11-27 16:33] VITALS: BP 109/55
[2016-11-27] MEDS: RIVASTIGMINE 4.6 MG PATCH (EXELON) TD SCH (17:04)
[2016-11-27] MEDS: FUROSEMIDE 40 MG/4 ML INJ (LASIX) IVP SCH (17:05)
[2016-11-27] MEDS: RIVASTIGMINE PATCH REMOVAL TP SCH (17:05)
[2016-11-27] MEDS: ALFUZOSIN HCL 10 MG TAB (UROXATRAL) PO SCH (17:44)
[2016-11-27 20:00] VITALS: BP 121/65
[2016-11-27] MEDS ORDERED: DEXTROSE 50% 50 ML (IMS) SYR ONE (20:18)
[2016-11-27] MEDS: traZODone 50 MG (DESYREL) TAB PO SCH (20:46)
[2016-11-27] MEDS: MELATONIN 3 MG TABLET PO SCH (20:46)
[2016-11-27] MEDS: ATORVASTATIN 20 MG (LIPITOR) TABLET PO SCH (20:46)
[2016-11-27] MEDS ORDERED: inSUlin DETERMIR 1 UNIT/0.01 ML (LEVEMIR) CHARGE PER UNIT SQ SCH (21:00)
[2016-11-27] MEDS ORDERED: DEXTROSE 10% IV SOLUTION 1,000 ML IV PRN (21:45)
[2016-11-27] MEDS ORDERED: DEXTROSE 50% 50 ML (IMS) SYR IV PRN (21:45)
[2016-11-27] MEDS ORDERED: GLUCAGON EMERGENCY 1 MG/KIT IM PRN (21:45)
[2016-11-27] MEDS ORDERED: FUROSEMIDE 40 MG/4 ML INJ (LASIX) IVP ONE (23:00)
[2016-11-28] VITALS: BP 123/66
[2016-11-28 05:16] VITALS: BP 122/56
[2016-11-28 05:25] LABS: MEAN PLATELET VOLUME 10.3 FL (7.4-10.4); RED BLOOD COUNT 3.97 10^6/uL (4.35-5.85); RED CELL DISTRIBUTION WIDTH 13.4 % (10.0-14.5); WHITE BLOOD COUNT 5.1 10^3/uL (4.3-11.0)
[2016-11-28 05:54] LABS: ALBUMIN 3.4 GM/DL (3.2-4.5); BILIRUBIN,TOTAL 0.4 MG/DL (0.1-1.0); CALCIUM 9.5 MG/DL (8.5-10.1); CREATININE SERUM 1.17 MG/DL (0.60-1.30); ICTERUS 0.4 (-100-1.9); MAGNESIUM 1.1 MG/DL (1.8-2.4); POTASSIUM 4.4 MMOL/L (3.6-5.0)
[2016-11-28] MEDS: inSUlin (REGULAR) HUMAN 1 UNIT/0.01 ML (CHARGE PER UNIT) SC SCH ×4 (06:09→21:08)
[2016-11-28 06:17] LABS: THYROID STIMULATING HORMONE 0.3 UIU/ML (0.35-4.94)
[2016-11-28] MEDS: LIPASE/AMYLASE/PROTEASE (PANCRELIPASE) 5,000 UNITS CAP PO SCH ×3 (06:22→17:44)
[2016-11-28] MEDS: LACTOBACILLUS Acidoph/Bulgar (LACTINEX/FLORANEX) TAB PO SCH ×3 (06:22→17:44)
[2016-11-28] MEDS: MULTIVIT W/MINERALS TAB (THERAGRAN M) PO SCH (06:23)
[2016-11-28] MEDS: PANTOPRAZOLE 20 MG TABLET (PROTONIX) PO SCH (06:23)
[2016-11-28] MEDS: RT-LEVALBUTEROL (XOPENEX) 1.25 MG/3 ML NEB NON-FORMULARY INH SCH ×3 (06:25→22:27)
[2016-11-28 06:28] LABS: TROPONIN I 0.55 NG/ML (<0.30)
[2016-11-28] MEDS: FUROSEMIDE 40 MG/4 ML INJ (LASIX) IVP SCH ×2 (06:41→17:44)
[2016-11-28 08:00] VITALS: BP 123/64
[2016-11-28] MEDS: ASPIRIN E.C. 81 MG (ECOTRIN) TAB PO SCH (08:54)
[2016-11-28] MEDS: LORATADINE (CLARITIN) 10 MG TAB PO SCH (08:54)
[2016-11-28] MEDS: SERTRALINE 50 MG (ZOLOFT) TABLET PO SCH (08:54)
[2016-11-28] MEDS: AUGMENTIN 875 MG TAB (AMOXICILLIN/CLAVULANATE) PO SCH ×2 (08:54→20:06)
[2016-11-28] MEDS: KCL 10 MEQ TAB (MICRO K) PO SCH (08:54)
[2016-11-28] MEDS: CALCIUM CARBONATE 500 MG (TUMS) TAB.CHEW PO SCH ×3 (08:54→20:06)
[2016-11-28] MEDS: POLYETHYLENE GLYCOL 17 GM (MIRALAX) PACK PO SCH (08:54)
[2016-11-28] MEDS: inSUlin DETERMIR 1 UNIT/0.01 ML (LEVEMIR) CHARGE PER UNIT SQ SCH (09:35)
[2016-11-28] MEDS: MAGNESIUM 1 GM/100 ML IVPB 100 ML IV SCH ×2 (10:21→11:24)
[2016-11-28] MEDS: LEVOFLOXACIN 500 MG TAB (LEVAQUIN) PO SCH (11:25)
[2016-11-28] MEDS: ENOXAPARIN 40 MG/0.4 ML (LOVENOX) SYR SC SCH (11:26)
[2016-11-28] MEDS ORDERED: ENOXAPARIN 100 MG/1 ML (LOVENOX) SYR SC SCH (11:30)
--- NOTE | 2016-11-28 11:35 | Cardiology Progress Note ---
Subjective Date Seen by Provider: Nov 28, 2016 Time Seen by Provider: 11:30 Subjective/Events-last exam patient is sitting up in bed, having shortness of breath, fairly anxious, received Haldol last night and slept well. Denied any chest pain. Review of Systems General: No Chills, No Night Sweats, No Fatigue, Malaise, No Appetite, No Other HEENT: No Head Aches, No Visual Changes, No Eye Pain, No Ear Pain, No Dysphasia , No Sinus Congestion, No Post Nasal Drip, No Sore Throat, No Other Pulmonary: Dyspnea, Cough, No Pleuritic Chest Pain, No Other Cardiovascular: Palpitations, No: Chest Pain, Edema, Lt Headedness, Orthopnea, Other, Paroxysmal Noc. Dyspnea Objective-Cardiology Exam Last Set of Vital Signs Vital Signs 11/28/16 11/28/16 08:00 08:15 Temp 97.0 Pulse 108 Resp 16 B/P (MAP) 123/64 Pulse Ox 97 O2 Delivery Nasal Cannula O2 Flow Rate 3.50 Capillary Refill : Less Than 3 Seconds I&O Intake and Output 11/28/16 00:00 Intake Total 2670 ml Output Total 1300 ml Balance 1370 ml Intake Oral 1270 ml IV Total 1400 ml Output Urine Total 1300 ml # Voids 3 General: Alert, Cooperative, Mild Distress HEENT: Atraumatic, PERRLA Neck: Supple, No JVD, No Thyromegaly Lungs: Normal Air Movement, Other (Rhonchi at the bases) Heart: Normal S1, Normal S2, No Murmurs, Other (Tachycardia) Abdomen: Normal Bowel Sounds, Soft, No Tenderness, No Hepatosplenomegaly, No Masses Extremities: No Clubbing, No Cyanosis, No Edema, Normal Pulses, No Tenderness/ Swelling Skin: No Rashes, No Breakdown, No Significant Lesion Neuro: Normal Gait, Normal Speech, Strength at 5/5 X4 Ext, Normal Tone, Sensation Intact Psych/Mental Status: Mental Status NL, Mood NL Results Lab Laboratory Tests 11/28/16 05:12 A/P-Cardiology Admission Diagnosis Abnormal EKG Coronary artery disease Congestive heart failure Shortness of breath Assessment/Plan Abnormal EKG with poor R-wave progression suggestive of anterior wall DC, the EKG finding were present on his previous admission on November 19, 2016, mild elevation in troponin, I had a long discussion with his family member and discussed the possibility of angiogram versus conservative management, decision was made to continue with conservative management and monitor his tolerance and response, I will add beta blockers. History of coronary artery disease with multiple interventions, last record reported a stenting done at [facility] on February 28, 2015 to the LAD using 2.2524 mm stent and 3.538 mm stent and 2.7512 mm stent, the report did not mention if it was a drug-eluting stent or bare-metal stent. Also had another stenting to the obtuse marginal branch of 2.538 mm with kissing balloon angioplasty to OM1 and OM 2. The right coronary artery had 70 percent lesion and FFR was done and it was 0.85. It was not stented at that time, may require repeating cardiac catheterization History of congestive heart failure with left ventricular systolic and diastolic dysfunction, last echocardiogram was reported to have ejection fraction 40-45 percent, receiving IV Lasix, I will add low-dose beta blockers and LULU inhibitor and evaluate his tolerance and response Shortness of breath, worsening dyspnea, recent pneumonia, history of congestive heart failure, receiving IV Lasix. Continue to monitor. Acute on chronic renal insufficiency, improvement today. Continue to monitor renal function closely. 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 History of chronic borderline hypotension. Continue to monitor blood pressure. History of mild dementia History of pancreatitis Clinical Quality Measures DVT/VTE Risk/Contraindication: Risk Factor Score Per Nursin RFS Level Per Nursing on Admit: 4+=Very High DONNIE CASTLE MD Nov 28, 2016 11:35
[2016-11-28] MEDS ORDERED: ENOXAPARIN 40 MG/0.4 ML (LOVENOX) SYR SC NR (11:43)
[2016-11-28] MEDS: meTOprolol TARTRATE 25 MG (LOPRESSOR) TABLET PO SCH ×2 (11:58→20:20)
[2016-11-28] MEDS: lisINopril 5 MG (PRINIVIL) TABLET PO SCH (11:58)
--- NOTE | 2016-11-28 11:58 | Physical Therapy Evaluation ---
PT Evaluation-General Medical Diagnosis Admission Date Nov 25, 2016 at 20:46 Medical Diagnosis: Respiratory distress Onset Date: Nov 25, 2016 Therapy Diagnosis Therapy Diagnosis: Impaired gait, impaired mobility Height/Weight Height (Feet): 5 Height (Inches): 11.00 Weight (Pounds): 168 Weight (Ounces): 6.0 Precautions Precautions/Isolations: Fall Prevention, Standard Precautions Referral Physician: Monika Garcia Reason for Referral: Evaluation/Treatment, Strengthening Medical History Pertinent Medical History: CAD, DM, Dementia, Smoking Additional Medical History coronary stent, abdominal surgery Social History Home: Alf Pt was walking short distance in the fci Mod I including toileting with use of FWW. Prior/Core FIM Prior Level of Function Functional [place] Measure 0=Not Assessed/NA 4=Minimal Assistance 1=Total Assistance 5=Supervision or Setup 2=Maximal Assistance 6=Modified [place] 3=Moderate Assistance 7=Complete [place] Bed Mobility: 6 Transfers (B,C,W/C) (FIM): 6 Gait: 5 Locomotion: 5 PT Evaluation-Current Subjective Pt's reports he has been lethargic the last few days due to taking Haldol for anxiety. She indicates he was able to do some walking with a FWW in the fci. He was allowed to toilet himself. His cognition waxes and wanes. Objective Patient Orientation: Confused Problem Solving: Poor Attachments: Oxygen, IV ROM/Strength Strength Upper Extremities 4/5 Strenght Lower Extremities 4/5 Sensory Vision: Wears Glasses Hearing: Impaired Transfers Functional [place] Measure 0=Not Assessed/NA 4=Minimal Assistance 1=Total Assistance 5=Supervision or Setup 2=Maximal Assistance 6=Modified [place] 3=Moderate Assistance 7=Complete [place] Transfers (B, C, W/C) (FIM): 4 Scootin Rollin Supine to/from Sit: 4 Sit to/from Stand: 4 Min Assist to lift from standing. verbal cues to use handrests. Gait Mode of Locomotion: Walk Anticipated Mode of Locomotion: Walk Gait (FIM): 3 Distance (FIM): 3=435-02 ft Distance: 50 Gait Level of Assist: 4 Gait Persons Needed: 1 Gait Assistive Device: FWW Comments/Gait Description Needs hands on cues to guide the front wheeled walker. Needs cuing for turning safely to sit in chairs. Balance Sitting Static: Good Sitting Dynamic: Fair Standing Static: Fair Standing Dynamic: Fair Assessment/Needs Pt has sufficient strength to make progress with mobility and gait. His primary limitation is cognition. Rehab Potential: Fair Post Rehab Potential-Barriers: cognitive levels, motivation PT Group Home Goals Group Home Goals PT [employer] Goals Time Frame: Dec 04, 2016 Transfers (B,C,W/C) (FIM): 5 Gait (FIM): 5 Gait distance (FIM): 3=150 ft Distance: 150 Gait Level of Assist: 5 Gait Assistive Device: FWW PT Plan Problem List Problem List: Functional Strength, Safety, Balance, Gait, Transfer Treatment/Plan Treatment Plan: Continue Plan of Care Treatment Plan: Bed Mobility, Education, Functional Activity Monique, Functional Strength, Gait, Safety Treatment Duration: Dec 04, 2016 # of days/week 6 Visits Per Week: 6 Pt/Family Agrees w/Plan: Yes Safety Risks/Education Patient Education: Gait Training, Transfer Techniques, Safety Issues Teaching Recipient: Patient Teaching Methods: Demonstration Discharge Recommendations Therapy D/C Recommendations: 24 hr Supervision, Alf Placement Equpiment Recommendations-D/C: Front Wheeled Walker Barriers to Progress cognition and motivation Target Placement fci with skilled therapy Time/GCodes Time In: 1125 Time Out: 1200 Total Billed Treatment Time: 30 Total Billed Treatment visit, evaluation moderate complexity 30 min BOBBY PISANO PT Nov 28, 2016 11:58
[2016-11-28] MEDS: inSUlin ASPART (NovoLOG) 1 UNIT/0.01 ML (CHARGE PER UNIT) SQ SCH ×3 (11:59→17:53)
[2016-11-28 12:00] VITALS: BP 96/57
--- NOTE | 2016-11-28 15:12 | Progress Note (SOAP) ---
Subjective Date Seen by Provider: Nov 28, 2016 Time Seen by Provider: 09:15 Subjective/Events-last exam PT IS A 76 Y/O MALE WHO IS KNOWN TO ME FROM PREVIOUS HOSPITALIZATION. HE WAS AGITATED, HAD ELEVATED HEART RATE, AND GIVEN A SMALL DOSE OF ATIVAN YESTERDAY, HE WAS VERY GROGGY AFTER HAVING THE DOSE OF ATIVAN AND HIS SISTER REPORTS THAT HE FINALLY WOKE UP TO EAT BREAKFAST THIS MORNING. HE DENIES ANY CONCERNS THIS MORNING. Review of Systems General: Fatigue HEENT: No Head Aches, No Visual Changes Pulmonary: No Dyspnea, Cough Cardiovascular: No: Chest Pain Gastrointestinal: No: Abdominal Pain, Nausea Neurological: Confusion, Weakness Objective Exam Vital Signs Date Time Temp Pulse Resp B/P (MAP) Pulse Ox O2 Delivery O2 Flow Rate FiO2 11/28/16 14:38 95 Nasal Cannula 4.00 11/28/16 12:00 96.8 94 16 96/57 96 Nasal Cannula 3.50 11/28/16 08:15 97 Nasal Cannula 3.50 11/28/16 08:00 97.0 108 16 123/64 96 Nasal Cannula 3.50 11/28/16 07:07 92 11/28/16 06:25 97 Nasal Cannula 4.00 11/28/16 05:16 97.7 92 20 122/56 95 Nasal Cannula 3.50 11/28/16 01:00 93 11/28/16 00:00 98.9 109 24 123/66 98 Nasal Cannula 3.50 11/27/16 23:56 93 Nasal Cannula 4.00 11/27/16 21:58 93 Nasal Cannula 4.00 11/27/16 21:00 Nasal Cannula 4.00 11/27/16 20:00 98.9 99 16 121/65 96 Nasal Cannula 3.50 11/27/16 19:00 96 11/27/16 18:09 90 11/27/16 16:33 98.0 104 20 109/55 96 Nasal Cannula 4.00 I & O 11/28/16 07:00 Intake Total 2190 ml Output Total 1550 ml Balance 640 ml Capillary Refill : Less Than 3 Seconds General Appearance: No Apparent Distress, WD/WN HEENT: PERRL/EOMI Neck: Full Range of Motion, Supple Respiratory: Chest Non Tender, Lungs Clear, Normal Breath Sounds Cardiovascular: Regular Rate, Rhythm Gastrointestinal: normal bowel sounds, non tender, soft, no organomegaly, no pulsatile mass Extremity: No Pedal Edema Neurologic/Psychiatric: Alert, Normal Mood/Affect, Other (ORIENTED TO PERSON, NOT PLACE OR TIME) Skin: Normal Color, Warm/Dry Lymphatic: No Adenopathy Results Lab Laboratory Tests 11/27/16 15:21: Glucometer 94 11/27/16 16:01: Total Creatine Kinase 350H, Creatine Kinase MB 13.5*H, Troponin I 0.68*H 11/27/16 20:18: Glucometer 47*L 11/27/16 20:36: Glucometer 99 11/27/16 21:10: Glucometer 96 11/28/16 03:37: Glucometer 177H 11/28/16 05:12: White Blood Count 5.1, Red Blood Count 3.97L, Hemoglobin 10.9L, Hematocrit 35L, Mean Corpuscular Volume 87, Mean Corpuscular Hemoglobin 28, Mean Corpuscular Hemoglobin Concent 31L, Red Cell Distribution Width 13.4, Platelet Count 127L, Mean Platelet Volume 10.3, Sodium Level 138, Potassium Level 4.4, Chloride Level 94L, Carbon Dioxide Level 31, Anion Gap 13, Blood Urea Nitrogen 22H, Creatinine 1.17, Estimat Glomerular Filtration Rate 60, BUN/Creatinine Ratio 19 , Glucose Level 200H, Calcium Level 9.5, Magnesium Level 1.1L, Total Bilirubin 0.4, Aspartate Amino Transf (AST/SGOT) 38H, Alanine Aminotransferase (ALT/SGPT) 25, Alkaline Phosphatase 69, Troponin I 0.55*H, B-Type Natriuretic Peptide 503.8H, Total Protein 7.0, Albumin 3.4, Triglycerides Level 53, Cholesterol Level 84, LDL Cholesterol Direct 36, VLDL Cholesterol 11, HDL Cholesterol 31L, Thyroid Stimulating Hormone (TSH) 0.30L 11/28/16 09:29: Glucometer 321H 11/28/16 11:47: Glucometer 341H Microbiology 11/25/16 Blood Culture - Preliminary, Resulted No growth Assessment/Plan Assessment/Plan Assess & Plan/Chief Complaint CONGESTIVE HEART FAILURE ACUTE RENAL INSUFFICIENCY DIABETES MELLITUS PNEUMONIA - RESOLVING VASCULAR DEMENTIA HYPERTENSION ESOPHAGEAL REFLUX BENIGN PROSTATIC HYPERTROPHY CONGESTIVE HEART FAILURE - ON LASIX- CONTINUE WITH IV LASIX AT THIS TIME - MONITOR SYMPTOMS, ECHOCARDIOGRAM ON 11/20/16 SHOWED CONCENTRIC HYPERTROPHY, EF OF 40-45%. RECENT CT SCAN SHOWED EFFUSION IN FISSURE ON RIGHT COPD - PT HAD BEEN ON OXYGEN AT 2 LITERS - THE STAFF AT THE SNF INCREASED HIS OXYGEN TO 5 LITERS - I SUSPECT THIS CAUSED ELIZABETH TO HAVE CO2 NARCOSIS AND CAUSED WORSENING SYMPTOMS OF DYSPNEA, RESPIRATORY DISTRESS LEADING TO HIS RE-ADMISSION. HE DOES NOT HAVE SEPSIS. ACUTE RENAL INSUFFICIENCY - IMPROVED FROM ADMISSION - CONTINUE WITH LASIX, GENTLE HYDRATION PNEUMONIA - ON AUGMENTIN - CONTINUE WITH TREATMENT - MONITOR SYMPTOMS - NO NEED FOR IV ANTIBIOTICS AT THIS TIME. DIABETES MELLITUS - CONTINUE TO CHECK FSBS, SLIDING SCALE INSULIN - HIS BLOOD GLUCOSE DROPPED TO 35 PER NURSING REPORT - THAT FSBS WAS NOT DOCUMENTED IN THE LABS SECTION - I WILL DECREASE HIS LEVEMIR DOSE FOR NIGHT-TIME USE. VASCULAR DEMENTIA - SUPPORTIVE CARE -- STARTED HALDOL, PT HAS HISTORY OF A 2-3 WEEK STAY IN [facility] ABOUT 4 MONTHS PREVIOUS TO HIS ADMISSION TO [facility] IN [place]. HYPOTENSION - GIVE A SMALL BOLUS OF FLUID THIS MORNING, AND WILL CONSULT DR. CASTLE - HIS HYPOTENSION IN FACE OF TACHYCARDIA IS CONCERNING, MAY BE PARTIALLY DUE TO MEDICATION (BREATHING TREATMENTS) CAUSING HIS TACHYCARDIA. ESOPHAGEAL REFLUX - RESTARTED PROTONIX. BENIGN PROSTATIC HYPERTROPHY - RESTART HIS FLOMAX. WEAKNESS - START PHYSICAL THERAPY TODAY. PT IS ON DVT PROPHYLAXIS - LOVENOX AND WILL USE COMPRESSION SOCKS SINCE HIS LEGS HAVE BEEN RESTLESS. I HAVE TALKED TO HIS DAUGHTER AND SHE REPORTS THAT HER FATHER IS A DNR/DNI Clinical Quality Measures DVT/VTE Risk/Contraindication: Risk Factor Score Per Nursin RFS Level Per Nursing on Admit: 4+=Very High ELISE JUNIOR MD Nov 28, 2016 15:12
[2016-11-28 15:52] VITALS: BP 87/56
[2016-11-28] MEDS: RIVASTIGMINE PATCH REMOVAL TP SCH (17:43)
[2016-11-28] MEDS: ALFUZOSIN HCL 10 MG TAB (UROXATRAL) PO SCH (17:44)
[2016-11-28] MEDS: RIVASTIGMINE 4.6 MG PATCH (EXELON) TD SCH (17:44)
[2016-11-28] MEDS: ATORVASTATIN 20 MG (LIPITOR) TABLET PO SCH (20:06)
[2016-11-28] MEDS: MELATONIN 3 MG TABLET PO SCH (20:06)
[2016-11-28] MEDS: traZODone 50 MG (DESYREL) TAB PO SCH (20:07)
[2016-11-28] MEDS: ENOXAPARIN 80 MG/0.8 ML (LOVENOX) SYR SC SCH (20:07)
[2016-11-28 20:49] VITALS: BP 85/50
[2016-11-29] VITALS (8 sets, daily range): BP systolic 74–115; BP diastolic 42–71
[2016-11-29] MEDS: inSUlin (REGULAR) HUMAN 1 UNIT/0.01 ML (CHARGE PER UNIT) SC SCH ×4 (05:59→21:28)
[2016-11-29 06:00] LABS: MEAN PLATELET VOLUME 10.6 FL (7.4-10.4); RED CELL DISTRIBUTION WIDTH 13.5 % (10.0-14.5)
[2016-11-29] MEDS: PANTOPRAZOLE 20 MG TABLET (PROTONIX) PO SCH (06:00)
[2016-11-29] MEDS: MULTIVIT W/MINERALS TAB (THERAGRAN M) PO SCH (06:00)
[2016-11-29] MEDS: inSUlin ASPART (NovoLOG) 1 UNIT/0.01 ML (CHARGE PER UNIT) SQ SCH ×3 (06:00→17:53)
[2016-11-29] MEDS: LACTOBACILLUS Acidoph/Bulgar (LACTINEX/FLORANEX) TAB PO SCH ×3 (06:00→17:53)
[2016-11-29] MEDS: FUROSEMIDE 40 MG/4 ML INJ (LASIX) IVP SCH (06:00)
[2016-11-29] MEDS: LIPASE/AMYLASE/PROTEASE (PANCRELIPASE) 5,000 UNITS CAP PO SCH ×3 (06:00→17:53)
[2016-11-29 06:01] LABS: RED BLOOD COUNT 3.94 10^6/uL (4.35-5.85); WHITE BLOOD COUNT 6.2 10^3/uL (4.3-11.0)
[2016-11-29 07:05] LABS: ALBUMIN 3.3 GM/DL (3.2-4.5); BILIRUBIN,TOTAL 0.5 MG/DL (0.1-1.0); CALCIUM 9.8 MG/DL (8.5-10.1); CREATININE SERUM 1.48 MG/DL (0.60-1.30); ICTERUS 0.5 (-100-1.9); MAGNESIUM 1.6 MG/DL (1.8-2.4); POTASSIUM 4.2 MMOL/L (3.6-5.0)
[2016-11-29] MEDS: RT-LEVALBUTEROL (XOPENEX) 1.25 MG/3 ML NEB NON-FORMULARY INH SCH ×3 (07:15→22:16)
[2016-11-29 07:17] LABS: TROPONIN I 0.62 NG/ML (<0.30)
[2016-11-29] MEDS: inSUlin DETERMIR 1 UNIT/0.01 ML (LEVEMIR) CHARGE PER UNIT SQ SCH (08:00)
[2016-11-29] MEDS: ENOXAPARIN 80 MG/0.8 ML (LOVENOX) SYR SC SCH ×2 (08:00→21:29)
[2016-11-29] MEDS: POLYETHYLENE GLYCOL 17 GM (MIRALAX) PACK PO SCH (08:00)
[2016-11-29] MEDS: ASPIRIN E.C. 81 MG (ECOTRIN) TAB PO SCH (08:01)
[2016-11-29] MEDS: SERTRALINE 50 MG (ZOLOFT) TABLET PO SCH (08:01)
[2016-11-29] MEDS: CALCIUM CARBONATE 500 MG (TUMS) TAB.CHEW PO SCH ×2 (08:01→21:29)
[2016-11-29] MEDS: LORATADINE (CLARITIN) 10 MG TAB PO SCH (08:01)
[2016-11-29] MEDS: KCL 10 MEQ TAB (MICRO K) PO SCH (08:01)
[2016-11-29] MEDS: lisINopril 5 MG (PRINIVIL) TABLET PO SCH (08:01)
[2016-11-29] MEDS: AUGMENTIN 875 MG TAB (AMOXICILLIN/CLAVULANATE) PO SCH ×2 (08:01→21:29)
[2016-11-29] MEDS: meTOprolol TARTRATE 25 MG (LOPRESSOR) TABLET PO SCH ×2 (08:01→21:29)
--- NOTE | 2016-11-29 09:39 | Progress Note (SOAP) ---
Subjective Date Seen by Provider: Nov 29, 2016 Time Seen by Provider: 09:20 Subjective/Events-last exam PT REPORTS THAT HE FEELS "GREAT" HE STATES "THERE IS NOTHING WRONG WITH ME". HIS SISTER REPORTED THAT HE HAD BEEN SLEEPING ALL MORNING. HOWEVER PT AWAKENED EASILY FOR ME THIS MORNING. HE DENIES ANY CHEST PAIN, SHORTNESS OF BREATH, DIZZINESS. STAFF REPORTS PT IS STILL SOMEWHAT IRRITABLE AT TIMES. Review of Systems General: Fatigue HEENT: No Head Aches Pulmonary: No Dyspnea, No Cough Cardiovascular: No: Chest Pain, Palpitations Gastrointestinal: No: Abdominal Pain, Constipation, Diarrhea, Nausea Genitourinary: No Dysuria Neurological: Confusion, No: Weakness Objective Exam Vital Signs Date Time Temp Pulse Resp B/P (MAP) Pulse Ox O2 Delivery O2 Flow Rate FiO2 11/29/16 08:10 94 Nasal Cannula 4.00 11/29/16 08:00 97.4 89 24 88/52 95 Nasal Cannula 3.50 11/29/16 08:00 97.4 89 24 88/52 95 Nasal Cannula 4.00 11/29/16 07:15 94 Nasal Cannula 4.00 11/29/16 04:00 97.2 89 18 115/67 98 Nasal Cannula 3.50 11/29/16 01:00 87 11/29/16 00:00 98.0 90 18 91/51 96 Nasal Cannula 3.50 11/28/16 22:27 93 Nasal Cannula 4.00 11/28/16 20:49 98.8 86 20 85/50 96 Nasal Cannula 3.50 11/28/16 20:10 Nasal Cannula 3.50 11/28/16 19:00 87 11/28/16 15:52 97.0 84 20 87/56 99 Nasal Cannula 3.50 11/28/16 14:38 95 Nasal Cannula 4.00 11/28/16 12:00 96.8 94 16 96/57 96 Nasal Cannula 3.50 I & O 11/29/16 07:00 Intake Total 1020 ml Output Total 825 ml Balance 195 ml Capillary Refill : Less Than 3 Seconds General Appearance: No Apparent Distress, WD/WN HEENT: PERRL/EOMI, Pharynx Normal Neck: Full Range of Motion, Supple Respiratory: Chest Non Tender, Lungs Clear, Normal Breath Sounds, No Accessory Muscle Use, No Respiratory Distress Cardiovascular: Regular Rate, Rhythm, Normal Peripheral Pulses, Systolic Murmur Gastrointestinal: normal bowel sounds, non tender, soft, no organomegaly, no pulsatile mass Extremity: Normal Capillary Refill, No Pedal Edema Neurologic/Psychiatric: Alert, Other (ORIENTED TO PERSON, NOT PLACE OR TIME) Skin: Normal Color, Warm/Dry Lymphatic: No Adenopathy Results Lab Laboratory Tests 11/28/16 11:47: Glucometer 341H 11/28/16 16:37: Glucometer 106 11/28/16 20:57: Glucometer 230H 11/29/16 05:52: White Blood Count 6.2, Red Blood Count 3.94L, Hemoglobin 11.0L, Hematocrit 34L, Mean Corpuscular Volume 88, Mean Corpuscular Hemoglobin 28, Mean Corpuscular Hemoglobin Concent 32, Red Cell Distribution Width 13.5, Platelet Count 72L, Mean Platelet Volume 10.6H 11/29/16 05:55: Glucometer 268H 11/29/16 06:35: Sodium Level 137, Potassium Level 4.2, Chloride Level 92L, Carbon Dioxide Level 33H, Anion Gap 12, Blood Urea Nitrogen 30H, Creatinine 1.48H, Estimat Glomerular Filtration Rate 46, BUN/Creatinine Ratio 20, Glucose Level 280H, Calcium Level 9.8, Magnesium Level 1.6L, Total Bilirubin 0.5, Aspartate Amino Transf (AST/SGOT) 30, Alanine Aminotransferase (ALT/SGPT) 21, Alkaline Phosphatase 67, Troponin I 0.62*H, Total Protein 7.0, Albumin 3.3 Microbiology 11/25/16 Blood Culture - Preliminary, Resulted No growth Assessment/Plan Assessment/Plan Assess & Plan/Chief Complaint CONGESTIVE HEART FAILURE ACUTE CARDIAC INJURY FROM SEVERE HYPOGLYCEMIA ACUTE RENAL INSUFFICIENCY DIABETES MELLITUS PNEUMONIA - RESOLVING VASCULAR DEMENTIA HYPERTENSION ESOPHAGEAL REFLUX BENIGN PROSTATIC HYPERTROPHY CONGESTIVE HEART FAILURE - ON LASIX- CONTINUE WITH IV LASIX AT THIS TIME - MONITOR SYMPTOMS, ECHOCARDIOGRAM ON 11/20/16 SHOWED CONCENTRIC HYPERTROPHY, EF OF 40-45%. RECENT CT SCAN SHOWED EFFUSION IN FISSURE ON RIGHT COPD - PT HAD BEEN ON OXYGEN AT 2 LITERS - THE STAFF AT THE [facility] INCREASED HIS OXYGEN TO 5 LITERS - I SUSPECT THIS CAUSED ELIZABETH TO HAVE CO2 NARCOSIS AND CAUSED WORSENING SYMPTOMS OF DYSPNEA, RESPIRATORY DISTRESS LEADING TO HIS RE-ADMISSION. HE DOES NOT HAVE SEPSIS. ACUTE RENAL INSUFFICIENCY - IMPROVED FROM ADMISSION - CONTINUE WITH LASIX, GENTLE HYDRATION PNEUMONIA - ON AUGMENTIN - CONTINUE WITH TREATMENT - MONITOR SYMPTOMS - NO NEED FOR IV ANTIBIOTICS AT THIS TIME. DIABETES MELLITUS - CONTINUE TO CHECK FSBS, SLIDING SCALE INSULIN - HIS BLOOD GLUCOSE DROPPED TO 35 PER NURSING REPORT - THAT FSBS WAS NOT DOCUMENTED IN THE LABS SECTION - I WILL DECREASE HIS LEVEMIR DOSE FOR NIGHT-TIME USE. VASCULAR DEMENTIA - SUPPORTIVE CARE -- STARTED HALDOL, PT HAS HISTORY OF A 2-3 WEEK STAY IN [facility] ABOUT 4 MONTHS PREVIOUS TO HIS ADMISSION TO [facility] IN [place]. HYPOTENSION - GIVE A SMALL BOLUS OF FLUID THIS MORNING, AND WILL CONSULT DR. CASTLE - HIS HYPOTENSION IN FACE OF TACHYCARDIA IS CONCERNING, MAY BE PARTIALLY DUE TO MEDICATION (BREATHING TREATMENTS) CAUSING HIS TACHYCARDIA. ESOPHAGEAL REFLUX - RESTARTED PROTONIX. BENIGN PROSTATIC HYPERTROPHY - RESTARTED HIS FLOMAX. WEAKNESS - CONTINUE WITH THERAPY. PT IS ON DVT PROPHYLAXIS - LOVENOX AND WILL USE COMPRESSION SOCKS SINCE HIS LEGS HAVE BEEN RESTLESS. WILL DISCHARGE BACK TO [facility] TOMORROW. I HAVE TALKED TO HIS DAUGHTER AND SHE REPORTS THAT HER FATHER IS A DNR/DNI Clinical Quality Measures DVT/VTE Risk/Contraindication: Risk Factor Score Per Nursin RFS Level Per Nursing on Admit: 4+=Very High ELISE JUNIOR MD Nov 29, 2016 09:39
--- NOTE | 2016-11-29 11:25 | Cardiology Progress Note ---
Subjective Date Seen by Provider: Nov 29, 2016 Time Seen by Provider: 11:22 Subjective/Events-last exam patient is laying down in bed, no significant dyspnea at this time, no chest pain, borderline hypotensive. Review of Systems General: No Chills, No Night Sweats, No Fatigue, No Malaise, No Appetite, No Other HEENT: No Head Aches, No Visual Changes, No Eye Pain, No Ear Pain, No Dysphasia , No Sinus Congestion, No Post Nasal Drip, No Sore Throat, No Other Pulmonary: No Dyspnea, No Cough, No Pleuritic Chest Pain, No Other Cardiovascular: No: Chest Pain, Edema, Lt Headedness, Orthopnea, Other, Palpitations, Paroxysmal Noc. Dyspnea Objective-Cardiology Exam Last Set of Vital Signs Vital Signs 11/29/16 08:10 Pulse Ox 94 O2 Delivery Nasal Cannula O2 Flow Rate 4.00 Capillary Refill : Less Than 3 Seconds I&O Intake and Output 11/29/16 00:00 Intake Total 970 ml Output Total 1125 ml Balance -155 ml Intake Oral 770 ml IV Total 200 ml Output Urine Total 1125 ml # Voids 4 # Bowel Movements 2 General: Alert, Cooperative, Mild Distress HEENT: Atraumatic, PERRLA Neck: Supple, No JVD, No Thyromegaly Lungs: Normal Air Movement, Other (Rhonchi at the bases) Heart: Normal S1, Normal S2, No Murmurs, Other (Tachycardia) Abdomen: Normal Bowel Sounds, Soft, No Tenderness, No Hepatosplenomegaly, No Masses Extremities: No Clubbing, No Cyanosis, No Edema, Normal Pulses, No Tenderness/ Swelling Skin: No Rashes, No Breakdown, No Significant Lesion Neuro: Normal Gait, Normal Speech, Strength at 5/5 X4 Ext, Normal Tone, Sensation Intact Psych/Mental Status: Mental Status NL, Mood NL Results Lab Laboratory Tests 11/29/16 05:52 11/29/16 06:35 A/P-Cardiology Admission Diagnosis Abnormal EKG Coronary artery disease Congestive heart failure Shortness of breath Assessment/Plan Elevated troponin level, coronary artery disease, non-ST elevation myocardial infarction, discussed with the family management plan and we all agreed on conservative management due to his multiple comorbid condition. History of coronary artery disease with multiple interventions, last record reported a stenting done at [facility] on February 28, 2015 to the LAD using 2.2524 mm stent and 3.538 mm stent and 2.7512 mm stent, the report did not mention if it was a drug-eluting stent or bare-metal stent. Also had another stenting to the obtuse marginal branch of 2.538 mm with kissing balloon angioplasty to OM1 and OM 2. The right coronary artery had 70 percent lesion and FFR was done and it was 0.85. It was not stented at that time, discussed his overall condition with the family and agreement on conservative management at this time. History of congestive heart failure with left ventricular systolic and diastolic dysfunction, last echocardiogram was reported to have ejection fraction 40-45 percent, borderline hypotension, cannot tolerate the current medication, I will continue on beta blockers and change Lasix to oral 20 mg daily, evaluate BNP, repeat chest x-ray, cannot tolerate LULU inhibitor and/or ARB due to hypotension. Shortness of breath, worsening dyspnea, recent pneumonia, history of congestive heart failure, receiving IV Lasix, I will change it to oral at this time. Acute on chronic renal insufficiency, Some improvement, continue to monitor. 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 History of chronic borderline hypotension. Continue to monitor blood pressure. History of mild dementia History of pancreatitis Clinical Quality Measures DVT/VTE Risk/Contraindication: Risk Factor Score Per Nursin RFS Level Per Nursing on Admit: 4+=Very High DONNIE CASTLE MD Nov 29, 2016 11:25
[2016-11-29] MEDS: LEVOFLOXACIN 500 MG TAB (LEVAQUIN) PO SCH (11:35)
[2016-11-29] MEDS ORDERED: NS IV 500 ML 500 ML IV SCH (13:30)
[2016-11-29] MEDS ORDERED: NS IV 500 ML 500 ML IV ONE (15:08)
[2016-11-29] MEDS: RIVASTIGMINE PATCH REMOVAL TP SCH (17:52)
[2016-11-29] MEDS: ALFUZOSIN HCL 10 MG TAB (UROXATRAL) PO SCH (17:53)
[2016-11-29] MEDS: RIVASTIGMINE 4.6 MG PATCH (EXELON) TD SCH (17:53)
[2016-11-29] MEDS: ATORVASTATIN 20 MG (LIPITOR) TABLET PO SCH (21:29)
[2016-11-29] MEDS: traZODone 50 MG (DESYREL) TAB PO SCH (21:29)
[2016-11-29] MEDS: MELATONIN 3 MG TABLET PO SCH (21:29)
[2016-11-30] VITALS: BP 83/48
[2016-11-30 01:19] VITALS: BP 93/57
[2016-11-30 04:00] VITALS: BP 83/53
[2016-11-30] MEDS: LACTOBACILLUS Acidoph/Bulgar (LACTINEX/FLORANEX) TAB PO SCH ×2 (05:45→11:40)
[2016-11-30] MEDS: LIPASE/AMYLASE/PROTEASE (PANCRELIPASE) 5,000 UNITS CAP PO SCH ×2 (05:45→11:40)
[2016-11-30] MEDS: inSUlin (REGULAR) HUMAN 1 UNIT/0.01 ML (CHARGE PER UNIT) SC SCH ×2 (05:46→11:41)
[2016-11-30] MEDS: MULTIVIT W/MINERALS TAB (THERAGRAN M) PO SCH (05:46)
[2016-11-30] MEDS: PANTOPRAZOLE 20 MG TABLET (PROTONIX) PO SCH (05:46)
[2016-11-30 06:22] LABS: MEAN PLATELET VOLUME 10.2 FL (7.4-10.4); RED BLOOD COUNT 3.94 10^6/uL (4.35-5.85); RED CELL DISTRIBUTION WIDTH 13.5 % (10.0-14.5); WHITE BLOOD COUNT 5.4 10^3/uL (4.3-11.0)
[2016-11-30] MEDS: RT-LEVALBUTEROL (XOPENEX) 1.25 MG/3 ML NEB NON-FORMULARY INH SCH (06:33)
[2016-11-30 06:47] LABS: ALBUMIN 3.4 GM/DL (3.2-4.5); BILIRUBIN,TOTAL 0.4 MG/DL (0.1-1.0); CALCIUM 9.5 MG/DL (8.5-10.1); CREATININE SERUM 1.62 MG/DL (0.60-1.30); ICTERUS 0.3 (-100-1.9); TOTAL PROTEIN 7.2 GM/DL (6.4-8.2)
[2016-11-30 06:48] LABS: POTASSIUM 5.1 MMOL/L (3.6-5.0)
[2016-11-30 08:13] VITALS: BP 94/63
--- NOTE | 2016-11-30 08:56 | Cardiology Progress Note ---
Subjective Date Seen by Provider: Nov 30, 2016 Time Seen by Provider: 08:52 Subjective/Events-last exam Patient in bed. Denies any CP. No complaints. Review of Systems General: No Night Sweats, No Fatigue, No Malaise HEENT: No Visual Changes, No Dysphasia, No Sore Throat Pulmonary: No Dyspnea, No Cough, No Pleuritic Chest Pain Cardiovascular: No: Chest Pain, Edema, Palpitations, Paroxysmal Noc. Dyspnea Gastrointestinal: No: Abdominal Pain, Nausea, Vomiting Genitourinary: No Dysuria, No Frequency Musculoskeletal: No: back pain, neck pain Neurological: No: Change in speech, Confusion, Numbness, Weakness Objective-Cardiology Exam Last Set of Vital Signs Vital Signs 11/30/16 08:13 Temp 97.7 Pulse 83 Resp 20 B/P (MAP) 94/63 Pulse Ox 94 O2 Delivery Nasal Cannula O2 Flow Rate 4.00 Capillary Refill : Less Than 3 Seconds I&O Intake and Output 11/30/16 00:00 Intake Total 1065 ml Output Total 1275 ml Balance -210 ml Intake Oral 690 ml IV Total 375 ml Output Urine Total 1275 ml # Bowel Movements 2 General: Alert, Cooperative, Mild Distress HEENT: Atraumatic, PERRLA Neck: Supple, No JVD, No Thyromegaly Lungs: Normal Air Movement, Other (Rhonchi at the bases) Heart: Regular Rate, Normal S1, Normal S2, No Murmurs Abdomen: Normal Bowel Sounds, Soft, No Tenderness, No Hepatosplenomegaly, No Masses Extremities: No Clubbing, No Cyanosis, No Edema, Normal Pulses, No Tenderness/ Swelling Skin: No Rashes, No Breakdown, No Significant Lesion Neuro: Normal Gait, Normal Speech, Strength at 5/5 X4 Ext, Normal Tone, Sensation Intact Psych/Mental Status: Mental Status NL, Mood NL Results Lab Laboratory Tests 11/30/16 06:03 A/P-Cardiology Admission Diagnosis Abnormal EKG Coronary artery disease Congestive heart failure Shortness of breath Assessment/Plan Elevated troponin level, coronary artery disease, non-ST elevation myocardial infarction, discussed with the family management plan and we all agreed on conservative management due to his multiple comorbid condition. History of coronary artery disease with multiple interventions, last record reported a stenting done at [facility] on February 28, 2015 to the LAD using 2.2524 mm stent and 3.538 mm stent and 2.7512 mm stent, the report did not mention if it was a drug-eluting stent or bare-metal stent. Also had another stenting to the obtuse marginal branch of 2.538 mm with kissing balloon angioplasty to OM1 and OM 2. The right coronary artery had 70 percent lesion and FFR was done and it was 0.85. It was not stented at that time, discussed his overall condition with the family and agreement on conservative management at this time. History of congestive heart failure with left ventricular systolic and diastolic dysfunction, last echocardiogram was reported to have ejection fraction 40-45 percent, borderline hypotension, currently tolerating low dose beta ladi, lasix. Cannot tolerate LULU inhibitor and/or ARB due to hypotension. Shortness of breath, recent pneumonia, history of congestive heart failure, slowly improving. Continue to monitor. Hyperkalemia- hold K+ and continue to monitor. Acute on chronic renal insufficiency, Some improvement, continue to monitor. 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 History of chronic borderline hypotension. Continue to monitor blood pressure. History of mild dementia History of pancreatitis Clinical Quality Measures DVT/VTE Risk/Contraindication: Risk Factor Score Per Nursin RFS Level Per Nursing on Admit: 4+=Very High HEMA LENNON Nov 30, 2016 08:56
--- NOTE | 2016-11-30 08:57 | Diagnostic Imaging Report ---
INDICATION: Shortness of air. TECHNIQUE: Two view chest 6:35 AM CORRELATION STUDY: 11/26/2016 FINDINGS: Heart size enlarged, mediastinum prominent. Vasculature overall slightly improved from prior study. There is likely loculated fluid within the right mid lung within the fissure plane. Small right pleural effusion and/or pleural thickening along with small pleural effusion and/or thickening of the left lung base as well. Biapical pleural-parenchymal thickening noted. Scattered areas of infiltrate particularly right lung base difficult to exclude. Right posterior lateral chest wall deformities again demonstrated may be posttraumatic or underlying destructive changes. IMPRESSION: 1. Findings of congestive heart failure, but overall appear improved. Superimposed infiltrate particularly right lung base would be difficult to exclude. Dictated by: Dictated on workstation # [id number]
[2016-11-30] MEDS ORDERED: FUROSEMIDE 20 MG (LASIX) TAB PO SCH (09:00)
[2016-11-30] MEDS: ENOXAPARIN 80 MG/0.8 ML (LOVENOX) SYR SC SCH (09:10)
[2016-11-30] MEDS: POLYETHYLENE GLYCOL 17 GM (MIRALAX) PACK PO SCH (09:10)
[2016-11-30] MEDS: CALCIUM CARBONATE 500 MG (TUMS) TAB.CHEW PO SCH (09:11)
[2016-11-30] MEDS: SERTRALINE 50 MG (ZOLOFT) TABLET PO SCH (09:11)
[2016-11-30] MEDS: AUGMENTIN 875 MG TAB (AMOXICILLIN/CLAVULANATE) PO SCH (09:11)
--- NOTE | 2016-11-30 09:11 | Cardiology Progress Note ---
Subjective Date Seen by Provider: Nov 30, 2016 Time Seen by Provider: 09:09 Subjective/Events-last exam patient is laying down in bed, feeling better. Asking to go back to the longterm. Review of Systems General: No Chills, No Night Sweats, No Fatigue, No Malaise, No Appetite, No Other HEENT: No Head Aches, No Visual Changes, No Eye Pain, No Ear Pain, No Dysphasia , No Sinus Congestion, No Post Nasal Drip, No Sore Throat, No Other Pulmonary: No Dyspnea, No Cough, No Pleuritic Chest Pain, No Other Cardiovascular: No: Chest Pain, Edema, Lt Headedness, Orthopnea, Other, Palpitations, Paroxysmal Noc. Dyspnea Objective-Cardiology Exam Last Set of Vital Signs Vital Signs 11/30/16 08:13 Temp 97.7 Pulse 83 Resp 20 B/P (MAP) 94/63 Pulse Ox 94 O2 Delivery Nasal Cannula O2 Flow Rate 4.00 Capillary Refill : Less Than 3 Seconds I&O Intake and Output 11/30/16 00:00 Intake Total 1065 ml Output Total 1275 ml Balance -210 ml Intake Oral 690 ml IV Total 375 ml Output Urine Total 1275 ml # Bowel Movements 2 General: Alert, Cooperative, No Acute Distress HEENT: Atraumatic, PERRLA Neck: Supple, No JVD, No Thyromegaly Lungs: Normal Air Movement, Other (Rhonchi at the bases) Heart: Regular Rate, Normal S1, Normal S2, No Murmurs Abdomen: Normal Bowel Sounds, Soft, No Tenderness, No Hepatosplenomegaly, No Masses Extremities: No Clubbing, No Cyanosis, No Edema, Normal Pulses, No Tenderness/ Swelling Skin: No Rashes, No Breakdown, No Significant Lesion Neuro: Normal Gait, Normal Speech, Strength at 5/5 X4 Ext, Normal Tone, Sensation Intact Psych/Mental Status: Mental Status NL, Mood NL Results Lab Laboratory Tests 11/30/16 06:03 A/P-Cardiology Admission Diagnosis Abnormal EKG Coronary artery disease Congestive heart failure Shortness of breath Assessment/Plan Elevated troponin level, coronary artery disease, non-ST elevation myocardial infarction, discussed with the family management plan and we all agreed on conservative management due to his multiple comorbid condition. History of coronary artery disease with multiple interventions, last record reported a stenting done at [facility] on February 28, 2015 to the LAD using 2.2524 mm stent and 3.538 mm stent and 2.7512 mm stent, the report did not mention if it was a drug-eluting stent or bare-metal stent. Also had another stenting to the obtuse marginal branch of 2.538 mm with kissing balloon angioplasty to OM1 and OM 2. The right coronary artery had 70 percent lesion and FFR was done and it was 0.85. It was not stented at that time, conservative management. Continue with medical therapy. History of congestive heart failure with left ventricular systolic and diastolic dysfunction, last echocardiogram was reported to have ejection fraction 40-45 percent, borderline hypotension, currently tolerating low dose beta ladi, lasix. Cannot tolerate LULU inhibitor and/or ARB due to hypotension. Shortness of breath, recent pneumonia, history of congestive heart failure, feeling better at this time, planning to discharge. Hyperkalemia- hold K+ and continue to monitor. Acute on chronic renal insufficiency, slightly worse today with diuresis. Monitor as an outpatient. 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 History of chronic borderline hypotension. Continue to monitor blood pressure. History of mild dementia History of pancreatitis Clinical Quality Measures DVT/VTE Risk/Contraindication: Risk Factor Score Per Nursin RFS Level Per Nursing on Admit: 4+=Very High DONNIE CASTLE MD Nov 30, 2016 09:11
[2016-11-30] MEDS: ASPIRIN E.C. 81 MG (ECOTRIN) TAB PO SCH (09:12)
[2016-11-30] MEDS: meTOprolol TARTRATE 25 MG (LOPRESSOR) TABLET PO SCH (09:12)
[2016-11-30] MEDS: LORATADINE (CLARITIN) 10 MG TAB PO SCH (09:13)
[2016-11-30] MEDS: inSUlin DETERMIR 1 UNIT/0.01 ML (LEVEMIR) CHARGE PER UNIT SQ SCH (09:13)
[2016-11-30] MEDS: inSUlin ASPART (NovoLOG) 1 UNIT/0.01 ML (CHARGE PER UNIT) SQ SCH ×2 (09:19→11:44)
--- NOTE | 2016-11-30 10:04 | Discharge Summary ---
Diagnosis/Chief Complaint Date of Admission Nov 25, 2016 at 20:46 Date of Discharge 11/25/16 Discharge Time: 11:30 Admission Diagnosis Admission Diagnosis CONGESTIVE HEART FAILURE ACUTE RENAL INSUFFICIENCY DIABETES MELLITUS PNEUMONIA - RESOLVING VASCULAR DEMENTIA HYPOTENSION ESOPHAGEAL REFLUX BENIGN PROSTATIC HYPERTROPHY Discharge Diagnosis CONGESTIVE HEART FAILURE ACUTE RENAL INSUFFICIENCY DIABETES MELLITUS PNEUMONIA - RESOLVING VASCULAR DEMENTIA HYPOTENSION ESOPHAGEAL REFLUX BENIGN PROSTATIC HYPERTROPHY Reason Hospital Visit PT IS A 76 Y/O MALE WHO IS KNOWN TO ME FROM RECENT HOSPITALIZATION. HE PRESENTED TO THE EMERGENCY DEPARTMENT AFTER HAVING ACUTE DYSPNEA WITH RESPIRATORY DISTRESS AT THE INTERMEDIATE. HE HAD BEEN ADMITTED LAST WEEK WITH PNEUMONIA AND SEPSIS SYMPTOMS. HE WAS APPROPRIATELY TREATED WITH TRIPLE ANTIBIOTIC THERAPY, THE MEDICATION WAS DECREASED HIS SYMPTOMS STABILIZED AND HE WAS PLACED ON AUGMENTIN ON DISCHARGE. THE PATIENT WAS SENT BACK TO THE INTERMEDIATE AND HE WAS DOING WELL FOR 2-3 DAYS, THEN HE WAS STARTING TO GET SHORT OF BREATH, THE NURSES AT THE INTERMEDIATE INCREASED HIS OXYGEN FROM 2 LITERS TO 5 LITERS, HIS DYSPNEA WORSENED THEN THEY CALLED MY OFFICE AND WERE INSTRUCTED TO DECREASE HIS OXYGEN BACK DOWN TO 2 LITERS. HE IMPROVED SLIGHTLY THEN SYMPTOMS WORSENED OVER THE HOURS FROM 1PM TO 5PM AND THEY CALLED WITH CONCERN FOR WORSENING DYSPNEA HE WAS THEN SENT TO THE EMERGENCY DEPARTMENT AND FOUND TO HAVE ACUTE HEART FAILURE. Discharge Summary Consultations DR. CASTLE Discharge Physical Examination Allergies: Coded Allergies: No Known Drug Allergies (Unverified , 03/14/16) Vitals & I&Os Vital Signs Date Time Temp Pulse Resp B/P (MAP) Pulse Ox O2 Delivery O2 Flow Rate FiO2 11/30/16 08:13 97.7 83 20 94/63 94 Nasal Cannula 4.00 General Appearance: Alert, Cooperative, No Acute Distress HEENT: Atraumatic, PERRLA Respiratory: Normal Air Movement, Other (Rhonchi at the bases) Cardiovascular: Regular Rate, Normal S1, Normal S2, No Murmurs Abdominal: Normal Bowel Sounds, Soft, No Tenderness, No Masses Extremities: No Clubbing, No Cyanosis, No Edema, No Tenderness/Swelling Skin: No Rashes, No Breakdown, No Significant Lesion Neuro: Normal Gait, Strength at 5/5 X4 Ext, Sensation Intact Psych/Mental Status: Mental Status NL, Mood NL Hospital Course CONGESTIVE HEART FAILURE ACUTE CARDIAC INJURY FROM SEVERE HYPOGLYCEMIA ACUTE RENAL INSUFFICIENCY DIABETES MELLITUS PNEUMONIA - RESOLVING VASCULAR DEMENTIA HYPERTENSION ESOPHAGEAL REFLUX BENIGN PROSTATIC HYPERTROPHY CONGESTIVE HEART FAILURE - ON LASIX- CONTINUE WITH IV LASIX AT THIS TIME - MONITOR SYMPTOMS, ECHOCARDIOGRAM ON 11/20/16 SHOWED CONCENTRIC HYPERTROPHY, EF OF 40-45%. RECENT CT SCAN SHOWED EFFUSION IN FISSURE ON RIGHT COPD - PT HAD BEEN ON OXYGEN AT 2 LITERS - THE STAFF AT THE INTERMEDIATE INCREASED HIS OXYGEN TO 5 LITERS - I SUSPECT THIS CAUSED ELIZABETH TO HAVE CO2 NARCOSIS AND CAUSED WORSENING SYMPTOMS OF DYSPNEA, RESPIRATORY DISTRESS LEADING TO HIS RE-ADMISSION. HE DOES NOT HAVE SEPSIS. ACUTE RENAL INSUFFICIENCY - IMPROVED FROM ADMISSION - CONTINUE WITH LASIX, GENTLE HYDRATION PNEUMONIA - ON AUGMENTIN - CONTINUE WITH TREATMENT - MONITOR SYMPTOMS - NO NEED FOR IV ANTIBIOTICS AT THIS TIME. DIABETES MELLITUS - CONTINUE TO CHECK FSBS, SLIDING SCALE INSULIN - HIS BLOOD GLUCOSE DROPPED TO 35 PER NURSING REPORT - THAT FSBS WAS NOT DOCUMENTED IN THE LABS SECTION - I WILL DECREASE HIS LEVEMIR DOSE FOR NIGHT-TIME USE. VASCULAR DEMENTIA - SUPPORTIVE CARE -- STARTED HALDOL, PT HAS HISTORY OF A 2-3 WEEK STAY IN [facility] ABOUT 4 MONTHS PREVIOUS TO HIS ADMISSION TO [facility] IN [place]. HYPOTENSION - GIVE A SMALL BOLUS OF FLUID THIS MORNING, AND WILL CONSULT DR. CASTLE - HIS HYPOTENSION IN FACE OF TACHYCARDIA IS CONCERNING, MAY BE PARTIALLY DUE TO MEDICATION (BREATHING TREATMENTS) CAUSING HIS TACHYCARDIA. ESOPHAGEAL REFLUX - RESTARTED PROTONIX. BENIGN PROSTATIC HYPERTROPHY - RESTARTED HIS FLOMAX. WEAKNESS - CONTINUE WITH THERAPY. PT IS ON DVT PROPHYLAXIS - LOVENOX AND WILL USE COMPRESSION SOCKS SINCE HIS LEGS HAVE BEEN RESTLESS. WILL DISCHARGE BACK TO INTERMEDIATE TODAY. I HAVE TALKED TO HIS DAUGHTER AND SHE REPORTS THAT HER FATHER IS A DNR/DNI Pending Labs Laboratory Tests 11/30/16 05:19: Glucometer 250 11/30/16 06:03: White Blood Count 5.4, Red Blood Count 3.94, Hemoglobin 10.8, Hematocrit 34, Mean Corpuscular Volume 87, Mean Corpuscular Hemoglobin 27, Mean Corpuscular Hemoglobin Concent 32, Red Cell Distribution Width 13.5, Platelet Count 127, Mean Platelet Volume 10.2, Sodium Level 137, Potassium Level 5.1, Chloride Level 94, Carbon Dioxide Level 30, Anion Gap 13, Blood Urea Nitrogen 35, Creatinine 1.62, Estimat Glomerular Filtration Rate 41, BUN/Creatinine Ratio 22 , Glucose Level 271, Calcium Level 9.5, Total Bilirubin 0.4, Aspartate Amino Transf (AST/SGOT) 27, Alanine Aminotransferase (ALT/SGPT) 18, Alkaline Phosphatase 71, B-Type Natriuretic Peptide 411.0, Total Protein 7.2, Albumin 3.4 Discharge Condition at discharge IMPROVED Instructions to patient/family Please see electonic discharge instructions given to patient. Discharge Medications Reviewed and agree with Discharge Medication list on patient's Discharge Instruction sheet Clinical Quality Measures DVT/VTE Risk/Contraindication: Risk Factor Score Per Nursin RFS Level Per Nursing on Admit: 4+=Very High ELISE JUNIOR MD Nov 30, 2016 10:04
[2016-11-30] MEDS ORDERED: LEVO500T80 PO (10:12)
[2016-11-30] MEDS ORDERED: INSU100V16 SQ (10:12)
[2016-11-30] MEDS ORDERED: INSU100V6 SQ (10:12)
[2016-11-30] MEDS ORDERED: METO-333 PO (10:12)
--- NOTE | 2016-11-30 10:14 | Discharge Inst-Complex ---
PDI Med Rec & Follow Up Appt. New Medications: Insulin Glargine,Hum.rec.anlog (Lantus) 100 Unit/1 Ml Vial 10 UNIT SQ HS, #3 VIAL Insulin Aspart (Novolog) 100 Unit/1 Ml Susp 5 UNIT SQ TIDWM for 30 Days, #1 VIAL 3 Refills Levofloxacin (Levofloxacin) 500 Mg Tablet 250 MG PO DAILY@11 for 5 Days, #5 TAB Metoprolol Tartrate (Metoprolol Tartrate) 25 Mg Tablet 12.5 MG PO BID for 30 Days, #30 TAB Continued Medications: Albuterol Sulfate (Albuterol Sulfate) 2.5 Mg/3 Ml Vial.neb 2.5 MG NEB UD, EA 3X DAILY SCHEDULED X 5 DAYS 11-25-16 TO 11-29-16 THEN EVERY 4 HOURS NEEDED FOR SHORTNESS OF BREATH Amoxicillin/Potassium Clav (Augmentin 875-125 Tablet) 1 Each Tablet 1 TAB PO BID for 7 Days, TAB 7 DAY THERAPY START DATE 11-24-16 1600 Aspirin (Aspir 81) 81 Mg Tablet.dr 81 MG PO DAILY, TAB Atorvastatin Calcium (Atorvastatin Calcium) 20 Mg Tablet 20 MG PO HS, TAB Calcium Carbonate (Calcium Carbonate) 500 Mg Tablet 500 MG PO BID, TAB Cetirizine HCl (Cetirizine HCl) 10 Mg Tablet 10 MG PO DAILY, TAB Lactobacillus Acidophilus (Acidophilus Lactobacilli) 1 Each Capsule 1 CAP PO TID, CAP Lipase/Protease/Amylase (Zenpep Dr 15,000 Units Capsule) 1 Each Capsule. 79743 UNITS PO TID, CAP Melatonin/Pyridoxine (Melatonin 3 mg Tablet) 1 Each Tablet 3 MG PO HS, TAB Multivits,Ca,Minerals/Iron/FA (Thera-M Tablet) 1 Each Tablet 1 TAB PO DAILY, TAB Omeprazole (Omeprazole) 20 Mg Capsule. 20 MG PO DAILY, CAP Polyethylene Glycol 3350 (Miralax) 17 Gm Powd.pack 17 GM PO DAILY, EACH Rivastigmine (Rivastigmine) 1 Each Patch.td24 4.6 MG TD DAILY, PATCH Sertraline HCl (Sertraline HCl) 25 Mg Tablet 25 MG PO DAILY, TAB Tamsulosin HCl (Tamsulosin HCl) 0.4 Mg Cap.er.24h 0.4 MG PO 1700, CAP Trazodone HCl (Trazodone HCl) 50 Mg Tablet 50 MG PO HS, TAB Discontinued Medications: Insulin Aspart (Novolog) 100 Unit/1 Ml Susp 10 UNITS SQ TIDWM, ML Insulin Glargine,Hum.rec.anlog (Lantus) 100 Unit/1 Ml Vial 38 UNITS SQ DAILY, VIAL Insulin Glargine,Hum.rec.anlog (Lantus) 100 Unit/1 Ml Vial 50 UNITS SQ HS, VIAL Prescription: Transmitted to Pharmacy Activity, Diet and PDI Resume Normal Activity: Yes Discharge Diet: Low Sodium Diet (THIS PATIENT MUST BE A LOW SODIUM DIET - OTHERWISE HE COULD FROM ACUTE PULMONARY EDEMA), ADA Diet Drink 6-8 Glasses of Fluid/Day: Yes Symptoms to Reoprt to : Appetite Changes, Fever Over 101 Degrees F, Pain/ Pressure in Chest, Shortness of Breath For Problems or Questions: Contact Your Physician ELISE JUNIOR MD Nov 30, 2016 10:14
[2016-11-30] MEDS ORDERED: FURO20TA4 PO (10:58)
[2016-11-30] MEDS: LEVOFLOXACIN 500 MG TAB (LEVAQUIN) PO SCH (11:41)
[2016-11-30 12:00] VITALS: BP 106/64
[2016-11-30 13:15] VITALS: BP 106/64
== END 2016-11-30 13:10 | DRG 280 ==
LOC: EDUNIT# 18:45 → ER 18:46 → 4TH 20:46 → ENPENDDIS 11-30 10:30
PROVIDERS: ADMIT Family Medicine; ATTEND Family Medicine
DX: I13.0 Hypertensive heart and chronic kidney disease with heart failure and stage 1 through stage 4 chronic kidney disease, or unspecified chronic kidney disease (principal); I50.43 Acute on chronic combined systolic (congestive) and diastolic (congestive) heart failure; I21.4 Non-ST elevation (NSTEMI) myocardial infarction; N18.9 Chronic kidney disease, unspecified; J44.0 Chronic obstructive pulmonary disease with (acute) lower respiratory infection; J18.9 Pneumonia, unspecified organism; J44.1 Chronic obstructive pulmonary disease with (acute) exacerbation; F01.50 Vascular dementia, unspecified severity, without behavioral disturbance, psychotic disturbance, mood disturbance, and anxiety; Z66 Do not resuscitate; N28.9 Disorder of kidney and ureter, unspecified; E11.65 Type 2 diabetes mellitus with hyperglycemia; I25.10 Atherosclerotic heart disease of native coronary artery without angina pectoris; I25.2 Old myocardial infarction; J30.2 Other seasonal allergic rhinitis; E78.00 Pure hypercholesterolemia, unspecified; M19.91 Primary osteoarthritis, unspecified site; F32.9 Major depressive disorder, single episode, unspecified; K21.9 Gastro-esophageal reflux disease without esophagitis; N40.0 Benign prostatic hyperplasia without lower urinary tract symptoms; H91.92 Unspecified hearing loss, left ear; Z95.5 Presence of coronary angioplasty implant and graft; Z79.4 Long term (current) use of insulin; Z87.891 Personal history of nicotine dependence; Z87.820 Personal history of traumatic brain injury; E78.5 Hyperlipidemia, unspecified; I95.89 Other hypotension; E87.5 Hyperkalemia
CPT/HCPCS: 36415; 71010; 71020; 80048; 80053; 80061; 80076; 81000; 82550; 82553; 82962; 83605; 83735; 83880; 84443; 84484; 85025; 85027; 86141; 87040; 93005; 93041; 93308; 94640; 94664; 94760; 96365; 96372; 96375

== ENCOUNTER 2017-01-03 22:31 | Emergency (ER) | payer MEDICARE ==
[~2017-01-03] VITALS: Ht 175.3 cm; Wt 77.1 kg
[~2017-01-03 22:31] MED LIST changes: +ALBU2.5V4 NEB; +CALC500T3 PO; +FURO20TA4 PO; +LEVO500T80 PO; +METO-333 PO; +MULT-28 PO
[2017-01-03 23:10] LABS: BASOPHILS # (AUTO) 0.1 10^3/uL (0.0-0.1); BASOPHILS % (AUTO) 1 % (0-10); EOSINOPHILS # (AUTO) 0.4 10^3/uL (0.0-0.3); EOSINOPHILS % (AUTO) 6 % (0-10); LYMPHOCYTES # (AUTO) 1.9 X 10^3 (1.0-4.0); LYMPHOCYTES % (AUTO) 28 % (12-44); MEAN CORPUSCULAR HEMOGLOBIN 27 PG (25-34); MEAN CORPUSCULAR HGB CONC 32 G/DL (32-36); MEAN CORPUSCULAR VOLUME 83 FL (80-99); MEAN PLATELET VOLUME 10.6 FL (7.4-10.4); MONOCYTES # (AUTO) 0.8 X 10^3 (0.0-1.0); MONOCYTES % (AUTO) 13 % (0-12); NEUTROPHILS # (AUTO) 3.5 X 10^3 (1.8-7.8); NEUTROPHILS % (AUTO) 52 % (42-75); PLATELET COUNT 168 10^3/uL (130-400); RED BLOOD COUNT 4.75 10^6/uL (4.35-5.85); RED CELL DISTRIBUTION WIDTH 13.6 % (10.0-14.5); WHITE BLOOD COUNT 6.7 10^3/uL (4.3-11.0)
[2017-01-03 23:29] LABS: ALBUMIN 3.8 GM/DL (3.2-4.5); BILIRUBIN,TOTAL 0.4 MG/DL (0.1-1.0); CALCIUM 9.4 MG/DL (8.5-10.1); CREATININE SERUM 1.37 MG/DL (0.60-1.30); POTASSIUM 4.3 MMOL/L (3.6-5.0); TOTAL PROTEIN 7.9 GM/DL (6.4-8.2); hs C REACTIVE PROTEIN 1.25 MG/DL (0.00-0.50)
--- NOTE | 2017-01-04 00:06 | ED Respiratory ---
General Chief Complaint: Respiratory Problems Stated Complaint: LOW OXYGEN Nursing Triage Note: PT TO ED 7 PER EMS FROM [facility]. NO REPORT FROM [facility]. PER EMS , CALLED FOR SOB PT WOULD NOT KEEP NC ON ET SPO2 WOULD DROP. NO DISTRESS NOTED AT THIS TIME, NO ACCESSORY MUSCLE USE. PT APPEARS VERY RELAXED AT THIS TIME. Source: patient, EMS, [facility] records Exam Limitations: no limitations History of Present Illness Time seen by provider: 22:32 Initial Comments This 76-year-old gentleman from [facility] presents to the emergency room via EMS with complaints of difficulty breathing according to [facility] staff. Patient himself actually has no complaints. EMS reports patient has been noncompliant with his O2 nasal cannula. When nasal cannula is on, oxygen saturations are in the 90s and patient breathes comfortably. He has chronic hypoxia for which she is to use oxygen supplementation continuously. He has had multiple bouts of pneumonia. He is afebrile at present. His breathing is relaxed at the time of assessment. He has received no nebulizer treatments at the [facility] per EMS report. Patient is ambulatory and walked to the cot for EMS. Allergies and Home Medications Allergies Coded Allergies: No Known Drug Allergies (Unverified , 03/14/16) Home Medications Albuterol Sulfate 2.5 Mg/3 Ml Vial.neb, 2.5 MG NEB UD, (Reported) 3X DAILY SCHEDULED X 5 DAYS 11-25-16 TO 11-29-16 THEN EVERY 4 HOURS NEEDED FOR SHORTNESS OF BREATH Aspirin 81 Mg Tablet.dr, 81 MG PO DAILY, (Reported) Atorvastatin Calcium 20 Mg Tablet, 20 MG PO HS, (Reported) Calcium Carbonate 500 Mg Tablet, 500 MG PO BID, (Reported) Cetirizine HCl 10 Mg Tablet, 10 MG PO DAILY, (Reported) Furosemide 20 Mg Tablet, 20 MG PO DAILY, #30 Prescribed by: ELISE GARCIA on 11/30/16 1058 Insulin Aspart 100 Unit/1 Ml Susp, 5 UNIT SQ TIDWM for 30 Days, #1 Ref 3 Prescribed by: ELISE GARCIA on 11/30/16 1012 Insulin Glargine,Hum.rec.anlog 100 Unit/1 Ml Vial, 10 UNIT SQ HS, #3 Prescribed by: ELISE GARCIA on 11/30/16 1012 Lactobacillus Acidophilus 1 Each Capsule, 1 CAP PO TID, (Reported) Levofloxacin 500 Mg Tablet, 250 MG PO DAILY@11 for 5 Days, #5 Prescribed by: ELISE GARCIA on 11/30/16 1012 Lipase/Protease/Amylase 1 Each Capsule.dr, 15,000 UNITS PO TID, (Reported) Melatonin/Pyridoxine 1 Each Tablet, 3 MG PO HS, (Reported) Metoprolol Tartrate 25 Mg Tablet, 12.5 MG PO BID for 30 Days, #30 Prescribed by: ELISE GARCIA on 11/30/16 1012 Multivits,Ca,Minerals/Iron/FA 1 Each Tablet, 1 TAB PO DAILY, (Reported) Omeprazole 20 Mg Capsule.dr, 20 MG PO DAILY, (Reported) Polyethylene Glycol 3350 17 Gm Powd.pack, 17 GM PO DAILY, (Reported) Rivastigmine 1 Each Patch.td24, 4.6 MG TD DAILY, (Reported) Sertraline HCl 25 Mg Tablet, 25 MG PO DAILY, (Reported) Tamsulosin HCl 0.4 Mg Cap.er.24h, 0.4 MG PO 1700, (Reported) Trazodone HCl 50 Mg Tablet, 50 MG PO HS, (Reported) Constitutional: no symptoms reported EENTM: no symptoms reported Respiratory: see HPI Cardiovascular: no symptoms reported Gastrointestinal: no symptoms reported Genitourinary: no symptoms reported Musculoskeletal: no symptoms reported Skin: no symptoms reported Psychiatric/Neurological: No Symptoms Reported Hematologic/Lymphatic: No Symptoms Reported Past Vqtzrbe-Xrojbc-Mzcqvy Hx Patient Social History Alcohol Use: Denies Use Recreational Drug Use: No Smoking Status: Former Smoker Type Used: Cigarettes Former Smoker/When Quit: October 24, 1998 2nd Hand Smoke Exposure: No Recent Foreign Travel: No Contact w/Someone Who Travel: No Recent Infectious Disease Expo: No Recent Hopitalizations: No Immunizations Up To Date Tetanus Booster (TDap): Unknown PED Vaccines UTD: No Date of Pneumonia Vaccine: Jun 07, 2014 Date of Influenza Vaccine: Jun 07, 2014 Seasonal Allergies Seasonal Allergies: Yes Surgeries HX Surgeries: Yes Surgeries: Abdominal, Cardiac, Coronary Stent, Neurological Respiratory Hx Respiratory Disorders: Yes Respiratory Disorders: Pneumonia, COPD (with chronic hypoxia) Cardiovascular Hx Cardiac Disorders: Yes (congestive heart failure) Cardiac Disorders: Coronary Artery Disease, Heart Attack, High Cholesterol, Hypertension Neurological Hx Neurological Disorders: Yes Neurological Disorders: Dementia, Traumatic Brain Injury Reproductive System Hx Reproductive Disorders: No Sexually Transmitted Disease: No HIV/AIDS: No Genitourinary Hx Genitourinary Disorders: Yes Genitourinary Disorders: Prostate Problems, UTI-Chronic Gastrointestinal Hx Gastrointestinal Disorders: Yes Gastrointestinal Disorders: Pancreatitis Musculoskeletal Hx Musculoskeletal Disorders: Yes Musculoskeletal Disorders: Arthritis Endocrine Hx Endocrine Disorders: Yes Endocrine Disorders: Diabetes, Insulin dep HEENT HX ENT Disorders: Yes HEENT Disorders: Cataract Loss of Vision: Denies Hearing Impairment: Hard of Hearing, Hearing Aide Left Cancer Hx Cancer: No Psychosocial Hx Psychiatric Problems: Yes Behavioral Health Disorders: Depression Integumentary HX Skin/Integumentary Disorder: No Blood Transfusions Hx Blood Disorders: No Adverse Reaction to a Blood Tr: No Family Medical History Significant Family History: Heart Disease, Cancer, Diabetes Family Medial History: Alcoholism 19 FATHER Arthritis 19 MOTHER Cataracts 19 FATHER G8 BROTHER G8 SISTER FH: esophageal cancer 19 MOTHER FH: hearing loss 19 FATHER 19 MOTHER G8 BROTHER G8 SISTER Myocardial infarction G8 BROTHER Physical Exam Vital Signs Vital Sign - Last 12Hours 01/03/17 22:37 Temp 98.4 Pulse 78 Resp 18 B/P (MAP) 124/73 Pulse Ox 98 O2 Delivery Nasal Cannula O2 Flow Rate 2.00 Capillary Refill : Less Than 3 Seconds General Appearance: WD/WN, no apparent distress HEENT: PERRL/EOMI, normal ENT inspection, pharynx normal Neck: normal inspection Respiratory: no respiratory distress, no accessory muscle use, crackles (right lung base) Cardiovascular: regular rate, rhythm, no edema, no murmur Gastrointestinal: normal bowel sounds, non tender, soft Extremities: normal inspection, no pedal edema 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, no motor/sensory deficits, alert, normal mood/affect, other (dementia at baseline) Skin: normal color, warm/dry Progress/Results/Core Measures Results/Orders Lab Results Laboratory Tests Test 01/03/17 23:04 Range/Units White Blood Count 6.7 4.3-11.0 10^3/uL Red Blood Count 4.75 4.35-5.85 10^6/uL Hemoglobin 12.6 L 13.3-17.7 G/DL Hematocrit 39 L 40-54 % Mean Corpuscular Volume 83 80-99 FL Mean Corpuscular Hemoglobin 27 25-34 PG Mean Corpuscular Hemoglobin Concent 32 32-36 G/DL Red Cell Distribution Width 13.6 10.0-14.5 % Platelet Count 168 130-400 10^3/uL Mean Platelet Volume 10.6 H 7.4-10.4 FL Neutrophils (%) (Auto) 52 42-75 % Lymphocytes (%) (Auto) 28 12-44 % Monocytes (%) (Auto) 13 H 0-12 % Eosinophils (%) (Auto) 6 0-10 % Basophils (%) (Auto) 1 0-10 % Neutrophils # (Auto) 3.5 1.8-7.8 X 10^3 Lymphocytes # (Auto) 1.9 1.0-4.0 X 10^3 Monocytes # (Auto) 0.8 0.0-1.0 X 10^3 Eosinophils # (Auto) 0.4 H 0.0-0.3 10^3/uL Basophils # (Auto) 0.1 0.0-0.1 10^3/uL Sodium Level 134 L 135-145 MMOL/L Potassium Level 4.3 3.6-5.0 MMOL/L Chloride Level 96 L 98-107 MMOL/L Carbon Dioxide Level 28 21-32 MMOL/L Anion Gap 10 5-14 MMOL/L Blood Urea Nitrogen 21 H 7-18 MG/DL Creatinine 1.37 H 0.60-1.30 MG/DL Estimat Glomerular Filtration Rate 50 BUN/Creatinine Ratio 15 Glucose Level 221 H 70-105 MG/DL Calcium Level 9.4 8.5-10.1 MG/DL Total Bilirubin 0.4 0.1-1.0 MG/DL Aspartate Amino Transf (AST/SGOT) 25 5-34 U/L Alanine Aminotransferase (ALT/SGPT) 13 0-55 U/L Alkaline Phosphatase 100 40-136 U/L C-Reactive Protein High Sensitivity 1.25 H 0.00-0.50 MG/DL B-Type Natriuretic Peptide 1040.4 H <100.0 PG/ML Total Protein 7.9 6.4-8.2 GM/DL Albumin 3.8 3.2-4.5 GM/DL My Orders Orders - MICAELA OLIVIA MD Cbc With Automated Diff (01/03/17 22:40) Comprehensive Metabolic Panel (01/03/17 22:40) Hs C Reactive Protein (01/03/17 22:40) Chest Pa/Lat (2 View) (01/03/17 22:41) BNP (01/03/17 23:05) Vital Signs/I&O Vital Sign - Last 12Hours 01/03/17 01/04/17 22:37 00:26 Temp 98.4 Pulse 78 84 Resp 18 18 B/P (MAP) 124/73 Pulse Ox 98 96 O2 Delivery Nasal Cannula Nasal Cannula O2 Flow Rate 2.00 2.00 Blood Pressure Mean: 90 Progress Note : Progress Note Workup for pneumonia was unremarkable. Vital signs were stable and patient was breathing comfortably throughout his ER stay. BNP returned elevated beyond his baseline. An additional 20 mg of Lasix was ordered to be given with his usual dose this morning. halfway was instructed to follow-up with Dr. Garcia for further instructions. Diagnostic Imaging Diagonstic Imaging: Xray Plain Films/CT/US/NM/MRI: chest Comments Chest x-ray viewed by me. Report not yet available. Compared with prior. There is improvement in the right-sided infiltrates. No new infiltrates or consolidation appreciated. There is stable vascular congestion and cardiomegaly. Departure Impression Impression: Primary Impression: Chronic systolic (congestive) heart failure Additional Impressions: Patient's noncompliance with other medical treatment and regimen Chronic obstructive pulmonary disease with hypoxia Disposition: HOME, SELF-CARE Condition: Stable Departure-Patient Inst. Decision time for Depature: 00:00 Referrals: MYKEL RAMOS MD (PCP/Family) Primary Care Physician Patient Instructions: COPD Including Emphysema (DC) Add. Discharge Instructions: Please give an extra dose of Lasix Wednesday morning to total 40 mg for his morning dose. Then contact Dr. Garcia for further orders. Patient appears to have a mild exacerbation of congestive heart failure. BNP was elevated above baseline at 1040. Follow-up with Dr. Garcia as soon as possible. Keep oxygen on at his basal rate continuously. All discharge instructions reviewed with patient and/or family. Voiced understanding. Copy Copies To 1: ELISE GARCIA MD, JOSHUA T MD Jan 04, 2017 00:06
[2017-01-04 00:26] VITALS: BP 115/68
--- NOTE | 2017-01-04 05:43 | Diagnostic Imaging Report ---
EXAM: CHEST PA/LAT (2 VIEW) INDICATION: Shortness of air. COMPARISON: Chest radiograph 11/30/2016. FINDINGS: Stable mild cardiomegaly. Persistent pulmonary venous congestion. Decreasing loculated fluid in the right minor fissure. Stable pleural thickening or fluid along the lung base. No pneumothorax. No acute osseous findings. IMPRESSION: 1. Stable cardiomegaly and pulmonary venous congestion. 2. Decreasing loculated fluid in the right minor fissure. Stable left pleural effusion or thickening. Dictated by: Dictated on workstation # [id number]
== END 2017-01-04 00:26 | disposition home or self-care (01) ==
LOC: EDUNIT# 22:31 → ER 22:32
DX: I11.0 Hypertensive heart disease with heart failure (principal); I50.22 Chronic systolic (congestive) heart failure; J44.9 Chronic obstructive pulmonary disease, unspecified; I25.10 Atherosclerotic heart disease of native coronary artery without angina pectoris; I25.2 Old myocardial infarction; E11.9 Type 2 diabetes mellitus without complications; F32.9 Major depressive disorder, single episode, unspecified; E78.00 Pure hypercholesterolemia, unspecified; M19.90 Unspecified osteoarthritis, unspecified site; F03.90 Unspecified dementia, unspecified severity, without behavioral disturbance, psychotic disturbance, mood disturbance, and anxiety; Z82.49 Family history of ischemic heart disease and other diseases of the circulatory system; Z80.0 Family history of malignant neoplasm of digestive organs; Z91.14 Patient's other noncompliance with medication regimen; Z87.820 Personal history of traumatic brain injury; Z79.82 Long term (current) use of aspirin; Z79.4 Long term (current) use of insulin; Z87.891 Personal history of nicotine dependence; Z95.5 Presence of coronary angioplasty implant and graft
CPT/HCPCS: 36415; 71020; 80053; 83880; 85025; 86141; 99283

== ENCOUNTER 2017-02-04 18:06 | Inpatient (IN) | payer MEDICARE ==
[~2017-02-04] VITALS: Ht 175.3 cm; Wt 72.7 kg
--- OUTSIDE RECORDS SUMMARY | 2017-02-04 18:12 | XMS REPORT ---
Author Author MYKEL RAMOS [facility] Address [address] [place] [address] Care Team Providers Care Sling Operator Name Role Phone MYKEL RAMOS Unavailable PROBLEMS Type Condition ICD9-CM Code VYN33-LF Code Onset Dates Condition Status SNOMED Code Problem Systolic heart failure I50.20 Active 852054158 Problem Diabetes E11.9 Active 48104863 Problem Coronary disease I25.10 Active 45858119 Problem Dementia F03.90 Active 53703019 ALLERGIES Unknown Allergies SOCIAL HISTORY No smoking Hx information available PLAN OF CARE VITAL SIGNS MEDICATIONS Unknown Medications RESULTS No Results PROCEDURES No Known procedures IMMUNIZATIONS No Known Immunizations
[2017-02-04] MEDS ORDERED: RT-ALBUTEROL/IPRATROPIUM 3 ML (DUONEB) VIAL ONE (18:17)
[2017-02-04] MEDS ORDERED: RT-ALBUTEROL/IPRATROPIUM 3 ML (DUONEB) VIAL INH ONE (18:30)
[2017-02-04 18:36] LABS: BASOPHILS % (AUTO) 0 % (0-10); EOSINOPHILS % (AUTO) 0 % (0-10); LYMPHOCYTES # (AUTO) 0.8 X 10^3 (1.0-4.0); LYMPHOCYTES % (AUTO) 12 % (12-44); MEAN CORPUSCULAR HEMOGLOBIN 27 PG (25-34); MEAN CORPUSCULAR HGB CONC 31 G/DL (32-36); MEAN CORPUSCULAR VOLUME 86 FL (80-99); MEAN PLATELET VOLUME 10.5 FL (7.4-10.4); MONOCYTES # (AUTO) 0.9 X 10^3 (0.0-1.0); MONOCYTES % (AUTO) 15 % (0-12); NEUTROPHILS # (AUTO) 4.7 X 10^3 (1.8-7.8); NEUTROPHILS % (AUTO) 73 % (42-75); PLATELET COUNT 184 10^3/uL (130-400); RED BLOOD COUNT 4.24 10^6/uL (4.35-5.85); RED CELL DISTRIBUTION WIDTH 14.6 % (10.0-14.5); WHITE BLOOD COUNT 6.4 10^3/uL (4.3-11.0)
[2017-02-04 18:48] LABS: INR 1.1 (0.8-1.4); PROTHROMBIN TIME PATIENT 14.5 SEC (12.2-14.7)
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
[2017-02-04 18:58] LABS: ALANINE AMINOTRANSFERASE 14 U/L (0-55); ALBUMIN 3.5 GM/DL (3.2-4.5); ANION GAP 10 MMOL/L (5-14); ASPARTATE AMINO TRANSFERASE 30 U/L (5-34); BILIRUBIN,TOTAL 0.3 MG/DL (0.1-1.0); BLOOD UREA NITROGEN 24 MG/DL (7-18); BUN/CREATININE RATIO 23; CALCIUM 8.9 MG/DL (8.5-10.1); CARBON DIOXIDE 28 MMOL/L (21-32); CHLORIDE 99 MMOL/L (98-107); CREATININE SERUM 1.03 MG/DL (0.60-1.30); GFR ESTIMATED > 60; GLUCOSE 99 MG/DL (70-105); MAGNESIUM 1.1 MG/DL (1.8-2.4); POTASSIUM 4.1 MMOL/L (3.6-5.0); SODIUM 137 MMOL/L (135-145); TOTAL PROTEIN 7.2 GM/DL (6.4-8.2)
--- NOTE | 2017-02-04 19:01 | Diagnostic Imaging Report ---
INDICATION: Stroke evaluation Comparison is made to study of 03/04/2016. Ventricles and sulci are diffusely prominent. There is mild to moderate low density within the deep white matter of both hemispheres. There also appears to be low density within the left midbrain which has increased when compared to previous study. There is no evidence of hemorrhage. There is no abnormal mass effect or shift of midline structures. Calvarium is intact. IMPRESSION: Senescent findings in the brain are similar to previous study although there is greater low density now noted within the left midbrain. This could be artifactual in nature although consideration could be given to followup study or MRI for assessment if indicated. Dictated by: Dictated on workstation # [id number]
--- NOTE | 2017-02-04 19:03 | Diagnostic Imaging Report ---
INDICATION: Wheezing. 1832 hours. COMPARISON: Comparison is made to study of 01/03/2017. FINDINGS: There has been increase in cardiomegaly and pulmonary venous congestion. There is increase in bilateral airspace disease and bilateral pleural fluid which may be complex and partially loculated. No pneumothorax identified. IMPRESSION: Probable congestive heart failure with increased pulmonary venous congestion and edema. There is also increasing pleural fluid bilaterally which may be complex or partially loculated. Dictated by: Dictated on workstation # [id number]
[2017-02-04 19:18] LABS: TROPONIN I < 0.30 NG/ML (<0.30)
[2017-02-04] MEDS ORDERED: FUROSEMIDE 40 MG/4 ML INJ (LASIX) IVP ONE (19:30)
[2017-02-04] MEDS ORDERED: MAGNESIUM 1 GM/100 ML IVPB 100 ML IV SCH (19:30)
[2017-02-04] MEDS ORDERED: ATROPINE 1% OPHTHALMIC SOLN 2 ML SL PRN (19:45)
[2017-02-04 20:01] LABS: BILIRUBIN,URINE NEGATIVE (NEGATIVE); KETONES,URINE NEGATIVE (NEGATIVE); LEUKOCYTE ESTERASE ,URINE NEGATIVE (NEGATIVE); NITRITE,URINE NEGATIVE (NEGATIVE); PH,URINE 6 (5-9); PROTEIN,URINE 2+ (NEGATIVE); UROBILINOGEN,URINE NORMAL (NORMAL)
[2017-02-04 20:16] LABS: WBC,URINE 0-2 /HPF
[2017-02-04 20:57] VITALS: BP 139/79
[2017-02-05] VITALS (9 sets, daily range): BP systolic 102–125; BP diastolic 59–80
[2017-02-05] MEDS: RT-ALBUTEROL/IPRATROPIUM 3 ML (DUONEB) VIAL INH SCH ×6 (01:48→21:09)
[2017-02-05] MEDS: FUROSEMIDE 40 MG/4 ML INJ (LASIX) IV SCH ×3 (02:52→14:38)
[2017-02-05 05:07] LABS: BASOPHILS % (AUTO) 0 % (0-10); EOSINOPHILS % (AUTO) 0 % (0-10); LYMPHOCYTES # (AUTO) 0.4 X 10^3 (1.0-4.0); LYMPHOCYTES % (AUTO) 3 % (12-44); MEAN CORPUSCULAR HEMOGLOBIN 27 PG (25-34); MEAN CORPUSCULAR HGB CONC 32 G/DL (32-36); MEAN CORPUSCULAR VOLUME 86 FL (80-99); MEAN PLATELET VOLUME 10.5 FL (7.4-10.4); MONOCYTES % (AUTO) 7 % (0-12); NEUTROPHILS # (AUTO) 12.7 X 10^3 (1.8-7.8); NEUTROPHILS % (AUTO) 90 % (42-75); PLATELET COUNT 173 10^3/uL (130-400); RED BLOOD COUNT 4.55 10^6/uL (4.35-5.85); RED CELL DISTRIBUTION WIDTH 14.7 % (10.0-14.5); WHITE BLOOD COUNT 14.1 10^3/uL (4.3-11.0)
[2017-02-05] MEDS ORDERED: ASPIRIN 325 MG (5 GR) TABLET PO ONE (05:15)
[2017-02-05] MEDS ORDERED: meTOprolol TARTRATE 25 MG (LOPRESSOR) TABLET PO ONE (05:15)
[2017-02-05 05:25] LABS: BAND NEUTROPHILS 0 %; BASOPHILS % (MANUAL) 0 %; EOSINOPHILS % (MANUAL) 0 %; LYMPHOCYTES % (MANUAL) 5 %; NEUTROPHILS % (MANUAL) 89 %
[2017-02-05 05:26] LABS: ANISOCYTOSIS SLIGHT; POIKILOCYTOSIS SLIGHT
[2017-02-05 05:32] LABS: ALANINE AMINOTRANSFERASE 18 U/L (0-55); ALBUMIN 3.7 GM/DL (3.2-4.5); ANION GAP 18 MMOL/L (5-14); ASPARTATE AMINO TRANSFERASE 35 U/L (5-34); BILIRUBIN,TOTAL 0.5 MG/DL (0.1-1.0); BLOOD UREA NITROGEN 27 MG/DL (7-18); BUN/CREATININE RATIO 23; CALCIUM 9.2 MG/DL (8.5-10.1); CARBON DIOXIDE 23 MMOL/L (21-32); CHLORIDE 95 MMOL/L (98-107); CREATININE SERUM 1.16 MG/DL (0.60-1.30); GFR ESTIMATED > 60; GLUCOSE 164 MG/DL (70-105); MAGNESIUM 1.4 MG/DL (1.8-2.4); POTASSIUM 4.5 MMOL/L (3.6-5.0); SODIUM 136 MMOL/L (135-145); TOTAL PROTEIN 7.9 GM/DL (6.4-8.2)
[2017-02-05 05:41] LABS: TROPONIN I < 0.30 NG/ML (<0.30)
--- NOTE | 2017-02-05 07:55 | Diagnostic Imaging Report ---
INDICATION: Followup congestive heart failure with possible aspiration. COMPARISON: 02/04/2017. FINDINGS: Right midlung zone confluent opacities are similar. Multifocal heterogeneous opacities in the perihilar and lung bases are unchanged. Possible small bilateral pleural effusions, greater on the right. No pneumothorax. Stable cardiomegaly. IMPRESSION: No change from examination of prior day. Probable small bilateral pleural effusions with fluid in the right major fissure. Potential pulmonary edema or aspiration could also be present. Dictated by: Dictated on workstation # [id number]
--- NOTE | 2017-02-05 08:10 | Consultation-Cardiology ---
HPI-Cardiology Cardiology Consultation Date of Consultation 02/05/17 Date of Admission Time Seen by Provider: 08:03 Indication: abnormal EKG HPI 76 years old gentleman with history of dementia, was hospitalized in November and had elevated troponin, decision was made by the family to treat him conservatively. Was at the custodial where he became unresponsive, he was noted to be hypoglycemic, given oral juice and brought to the emergency room, there is a concern about possible aspiration. Patient is unable to provide any history, history was obtained by visiting with his and reviewing the records. There was no reported chest pain, palpitation, syncope. Home Medications & Allergies Allergies: Coded Allergies: No Known Drug Allergies (Unverified , 03/14/16) Home Medication List Reviewed: Yes KMU-Ewlagp-Dzmkpw Hx Patient Social History Marital Status: Employed/Student: retired Alcohol Use: Denies Use Recreational Drug Use: No Smoking Status: Former Smoker Former smoker/When Quit: October 24, 1998 Type Used: Cigarettes 2nd Hand Smoke Exposure: No Recent Foreign Travel: No Recent Infectious Disease Expo: No Recent Hopitalizations: No Physical Abuse Screen: No Sexual Abuse: No Immunizations Up To Date Tetanus Booster (TDap): Unknown Date of Pneumonia Vaccine: Jun 07, 2014 Date of Influenza Vaccine: Jun 07, 2014 Past Medical History past medical history as discussed below Family Medical History Significant Family History: Heart Disease, Cancer, Diabetes Family History: 19 FATHER FH: hearing loss Cataracts Alcoholism 19 MOTHER FH: esophageal cancer FH: hearing loss Arthritis G8 BROTHER FH: hearing loss Cataracts Myocardial infarction G8 SISTER FH: hearing loss Cataracts Constitutional: see HPI, other (unable to provide review of systems due to current condition, there are generalized weakness, was unresponsive at the custodial) EENTM: see HPI Respiratory: see HPI Cardiovascular: see HPI Gastrointestinal: see HPI Genitourinary: see HPI Musculoskeletal: see HPI Skin: see HPI Psychiatric/Neurological: No Symptoms Reported, See HPI Reviewed Test Results Reviewed Test Results Lab Laboratory Tests Test 02/04/17 18:22 02/04/17 18:29 02/04/17 19:52 02/05/17 04:35 Range/Units Glucometer 120 H 70-110 MG/DL White Blood Count 6.4 14.1 H 4.3-11.0 10^3/uL Red Blood Count 4.24 L 4.55 4.35-5.85 10^6/uL Hemoglobin 11.4 L 12.3 L 13.3-17.7 G/DL Hematocrit 36 L 39 L 40-54 % Mean Corpuscular Volume 86 86 80-99 FL Mean Corpuscular Hemoglobin 27 27 25-34 PG Mean Corpuscular Hemoglobin Concent 31 L 32 32-36 G/DL Red Cell Distribution Width 14.6 H 14.7 H 10.0-14.5 % Platelet Count 184 173 130-400 10^3/uL Mean Platelet Volume 10.5 H 10.5 H 7.4-10.4 FL Neutrophils (%) (Auto) 73 90 H 42-75 % Lymphocytes (%) (Auto) 12 3 L 12-44 % Monocytes (%) (Auto) 15 H 7 0-12 % Eosinophils (%) (Auto) 0 0 0-10 % Basophils (%) (Auto) 0 0 0-10 % Neutrophils # (Auto) 4.7 12.7 H 1.8-7.8 X 10^3 Lymphocytes # (Auto) 0.8 L 0.4 L 1.0-4.0 X 10^3 Monocytes # (Auto) 0.9 1.0 0.0-1.0 X 10^3 Eosinophils # (Auto) 0.0 0.0 0.0-0.3 10^3/uL Basophils # (Auto) 0.0 0.0 0.0-0.1 10^3/uL Prothrombin Time 14.5 12.2-14.7 SEC INR Comment 1.1 0.8-1.4 Activated Partial Thromboplast Time 43 H 24-35 SEC Sodium Level 137 136 135-145 MMOL/L Potassium Level 4.1 4.5 3.6-5.0 MMOL/L Chloride Level 99 95 L 98-107 MMOL/L Carbon Dioxide Level 28 23 21-32 MMOL/L Anion Gap 10 18 H 5-14 MMOL/L Blood Urea Nitrogen 24 H 27 H 7-18 MG/DL Creatinine 1.03 1.16 0.60-1.30 MG/DL Estimat Glomerular Filtration Rate > 60 > 60 BUN/Creatinine Ratio 23 23 Glucose Level 99 164 H 70-105 MG/DL Calcium Level 8.9 9.2 8.5-10.1 MG/DL Magnesium Level 1.1 L 1.4 L 1.8-2.4 MG/DL Total Bilirubin 0.3 0.5 0.1-1.0 MG/DL Aspartate Amino Transf (AST/SGOT) 30 35 H 5-34 U/L Alanine Aminotransferase (ALT/SGPT) 14 18 0-55 U/L Alkaline Phosphatase 79 78 40-136 U/L Troponin I < 0.30 < 0.30 <0.30 NG/ML B-Type Natriuretic Peptide 1479.6 H <100.0 PG/ML Total Protein 7.2 7.9 6.4-8.2 GM/DL Albumin 3.5 3.7 3.2-4.5 GM/DL TSH [place] Testing 0.93 0.35-4.94 UIU/ML Urine Color YELLOW Urine Clarity SLIGHTLY CLOUDY Urine pH 6 5-9 Urine Specific [place] 1.010 L 1.016-1.022 Urine Protein 2+ H NEGATIVE Urine Glucose (UA) NEGATIVE NEGATIVE Urine Ketones NEGATIVE NEGATIVE Urine Nitrite NEGATIVE NEGATIVE Urine Bilirubin NEGATIVE NEGATIVE Urine Urobilinogen NORMAL NORMAL MG/DL Urine Leukocyte Esterase NEGATIVE NEGATIVE Urine RBC (Auto) NEGATIVE NEGATIVE Urine RBC NONE /HPF Urine WBC 0-2 /HPF Urine Crystals NONE /LPF Urine Bacteria NEGATIVE /HPF Urine Casts NONE /LPF Urine Mucus SMALL H /LPF Urine Culture Indicated NO Neutrophils % (Manual) 89 % Lymphocytes % (Manual) 5 % Monocytes % (Manual) 6 % Eosinophils % (Manual) 0 % Basophils % (Manual) 0 % Band Neutrophils 0 % Poikilocytosis SLIGHT Anisocytosis SLIGHT Elliptocytes SLIGHT Physical Exam Vital Signs Vital Sign - Last 12Hours 02/04/17 02/04/17 18:25 18:41 Temp 96.7 Pulse 80 Resp 22 B/P (MAP) 118/78 Pulse Ox 93 O2 Delivery Nasal Cannula O2 Flow Rate 5.00 Capillary Refill : Less Than 3 Seconds General Appearance: WD/WN, Moderate Distress Eyes: Bilateral Eye Normal Inspection, Bilateral Eye PERRL, Bilateral Eye EOMI HEENT: PERRL/EOMI, TMs Normal, Normal ENT Inspection, Pharynx Normal Neck: Full Range of Motion, Normal Inspection, Supple Respiratory: Chest Non Tender, No Accessory Muscle Use, No Respiratory Distress , Crackles Cardiovascular: Regular Rate, Rhythm, Normal Peripheral Pulses, Systolic Murmur , Gallop/S3 Gastrointestinal: Normal Bowel Sounds, No Organomegaly, No Pulsatile Mass, Non Tender, Soft Back: Normal Inspection, No Vertebral Tenderness Extremity: Normal Capillary Refill, Normal Inspection, Non Tender, No Calf Tenderness, No Pedal Edema Neurologic/Psychiatric: Alert, Depressed Affect Skin: Normal Color, Warm/Dry Lymphatic: No Adenopathy A/P-Cardiology Admission Diagnosis Coronary artery disease Congestive heart failure Hypotension Aspiration Hypoglycemia Change in mental status Assessment/Plan Abnormal EKG, repeat showed return to baseline, probably due to coronary artery disease, had mild ST changes in the anterior wall with Q wave suggestive of subacute myocardial infarction, planning to evaluate echocardiogram, I had a discussion with his again and decision for medical therapy was made, patient was hospitalized in November 2016 with elevated troponin and the family also requested conservative management at that time. Change in mental status, patient is unable to provide history, had history of dementia which appear to be worsening, had transient hypoglycemia, continue to monitor blood sugar. Questionable aspiration, followed and managed by primary care physician History of coronary artery disease with multiple interventions, last record reported a stenting done at [facility] on February 28, 2015 to the LAD using 2.2524 mm stent and 3.538 mm stent and 2.7512 mm stent, the report did not mention if it was a drug-eluting stent or bare-metal stent. Also had another stenting to the obtuse marginal branch of 2.538 mm with kissing balloon angioplasty to OM1 and OM 2. The right coronary artery had 70 percent lesion and FFR was done and it was 0.85. It was not stented at that time, has been treated conservatively, continue with conservative management for now. I will start aspirin and Lovenox and monitor H&H closely History of congestive heart failure with left ventricular systolic and diastolic dysfunction, acute on chronic left ventricular systolic and diastolic dysfunction, ischemic cardiomyopathy, last echocardiogram was reported to have ejection fraction 40-45 percent, borderline hypotension, cannot tolerate LULU inhibitor and/or ARB due to hypotension, currently cannot tolerate beta blockers due to hypotension. Monitor closely and add Lasix if tolerated. 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 History of chronic borderline hypotension. Continue to monitor blood pressure. History of mild dementia, appeared to be worse at this time. History of pancreatitis Clinical Quality Measures DVT/VTE Risk/Contraindication: Risk Factor Score Per Nursin RFS Level Per Nursing on Admit: 4+=Very High DONNIE CASTLE MD Feb 05, 2017 08:10
[2017-02-05] MEDS ORDERED: PANTOPRAZOLE 40 MG (PROTONIX) TAB PO NR (08:15)
[2017-02-05] MEDS: ENOXAPARIN 60 MG/0.6 ML (LOVENOX) SYR SC SCH ×2 (08:43→21:01)
[2017-02-05] MEDS: ASPIRIN E.C. 325 MG (ECOTRIN) TABLET PO SCH (08:43)
[2017-02-05] MEDS ORDERED: NYST15CR TP (08:52)
[2017-02-05] MEDS ORDERED: INSU100V16 SQ (08:52)
[2017-02-05] MEDS ORDERED: FURO20TA4 PO (08:52)
[2017-02-05] MEDS ORDERED: METO-333 PO (08:52)
[2017-02-05] MEDS ORDERED: INSU100V6 SQ (08:56)
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
--- NOTE | 2017-02-05 13:08 | Speech Therapy Progress Note ---
Therapy Progress Note Speech pathology clinical bedside swallowing evaluation received and chart reviewed by this therapist. Upon entrance to the room, the patient was in a reclined position with bilateral hand restraints (soft) present. The patient is currently receiving 3 to 4 L supplemental oxygen via nasal cannula. The patient required placement in a sitting position (in bed), as well as, all room lights present to open eyes. Regardless of maximum clinician verbal prompting and gentle tactile cues, the patient continued to close eyes and face away from the clinician. One half teaspoon of water was attempted on two occasions. The first occasion, the patient allowed all contents to spill anteriorly out of the oral cavity. The second occasion, the patient expectorated the contents onto his chest. The water was cleaned from the patient with a tissue. The patient did not attempt to draw liquid from a straw and continuously moved mouth away when presented with this option. At this time, the patient is not deemed appropriate or safe for participation in a swallow evaluation. When/if the patient's alertness improves and he becomes appropriate to participate in the assessment, please contact speech pathology. Speech pathology will re-attempt the swallow evaluation, as able. Thank you. MAYUR ESPOSITO Feb 05, 2017 13:08
[2017-02-05] MEDS: SERTRALINE 50 MG (ZOLOFT) TABLET PO SCH (13:26)
[2017-02-05] MEDS: LIPASE/AMYLASE/PROTEASE (PANCRELIPASE) 5,000 UNITS CAP PO SCH ×2 (13:26→16:32)
[2017-02-05] MEDS: RIVASTIGMINE 4.6 MG PATCH (EXELON) TD SCH (13:27)
[2017-02-05] MEDS: inSUlin (REGULAR) HUMAN 1 UNIT/0.01 ML (CHARGE PER UNIT) SC SCH ×2 (16:31→21:01)
[2017-02-05] MEDS: FUROSEMIDE 40 MG/4 ML INJ (LASIX) IVP SCH (16:32)
[2017-02-05] MEDS: ALFUZOSIN HCL 10 MG TAB (UROXATRAL) PO SCH (17:13)
[2017-02-05] MEDS: ATORVASTATIN 20 MG (LIPITOR) TABLET PO SCH ×2 (20:53→22:43)
[2017-02-05] MEDS: MELATONIN 3 MG TABLET PO SCH ×2 (20:53→22:43)
[2017-02-05] MEDS: NYSTATIN CREAM (MYCOSTATIN) 30 GM TUBE TP SCH (20:54)
[2017-02-06] MEDS: RT-ALBUTEROL/IPRATROPIUM 3 ML (DUONEB) VIAL INH SCH ×6 (01:53→21:38)
[2017-02-06 03:45] VITALS: BP 104/88
[2017-02-06] MEDS: inSUlin (REGULAR) HUMAN 1 UNIT/0.01 ML (CHARGE PER UNIT) SC SCH ×4 (05:09→21:48)
[2017-02-06 05:13] LABS: MEAN PLATELET VOLUME 11.1 FL (7.4-10.4); RED BLOOD COUNT 4.12 10^6/uL (4.35-5.85); RED CELL DISTRIBUTION WIDTH 14.7 % (10.0-14.5)
[2017-02-06 06:07] LABS: ALANINE AMINOTRANSFERASE 15 U/L (0-55); ALBUMIN 3.2 GM/DL (3.2-4.5); ANION GAP 12 MMOL/L (5-14); ASPARTATE AMINO TRANSFERASE 34 U/L (5-34); BILIRUBIN,TOTAL 0.4 MG/DL (0.1-1.0); BLOOD UREA NITROGEN 36 MG/DL (7-18); BUN/CREATININE RATIO 29; CALCIUM 8.9 MG/DL (8.5-10.1); CARBON DIOXIDE 32 MMOL/L (21-32); CHLORIDE 95 MMOL/L (98-107); CREATININE SERUM 1.24 MG/DL (0.60-1.30); GFR ESTIMATED 56; GLUCOSE 136 MG/DL (70-105); POTASSIUM 3.8 MMOL/L (3.6-5.0); SODIUM 139 MMOL/L (135-145); TOTAL PROTEIN 6.5 GM/DL (6.4-8.2)
[2017-02-06 06:16] LABS: TROPONIN I < 0.30 NG/ML (<0.30)
[2017-02-06] MEDS ORDERED: PANTOPRAZOLE 20 MG TABLET (PROTONIX) PO SCH (07:00)
[2017-02-06] MEDS: LIPASE/AMYLASE/PROTEASE (PANCRELIPASE) 5,000 UNITS CAP PO SCH ×3 (07:00→16:10)
[2017-02-06] MEDS: FUROSEMIDE 40 MG/4 ML INJ (LASIX) IVP SCH ×2 (07:12→16:10)
[2017-02-06] MEDS: PANTOPRAZOLE 40 MG (PROTONIX) TAB PO SCH (07:37)
[2017-02-06] MEDS: RIVASTIGMINE PATCH REMOVAL TP SCH (08:21)
[2017-02-06] MEDS: ASPIRIN E.C. 325 MG (ECOTRIN) TABLET PO SCH (08:21)
[2017-02-06] MEDS: LORATADINE (CLARITIN) 10 MG TAB PO SCH (08:21)
[2017-02-06] MEDS: ENOXAPARIN 60 MG/0.6 ML (LOVENOX) SYR SC SCH ×2 (08:21→21:48)
[2017-02-06] MEDS: POLYETHYLENE GLYCOL 17 GM (MIRALAX) PACK PO SCH (08:21)
[2017-02-06] MEDS: RIVASTIGMINE 4.6 MG PATCH (EXELON) TD SCH (08:21)
[2017-02-06] MEDS: NYSTATIN CREAM (MYCOSTATIN) 30 GM TUBE TP SCH ×2 (08:22→21:49)
[2017-02-06] MEDS: SERTRALINE 50 MG (ZOLOFT) TABLET PO SCH (08:22)
[2017-02-06 08:33] VITALS: BP 89/59
--- NOTE | 2017-02-06 09:45 | Diagnostic Imaging Report ---
CLINICAL INDICATION: Patient with pulmonary edema, checking for aspiration. EXAMINATION: Portable chest x-ray upright view. COMPARISON: Portable chest x-ray upright view dated 02/05/2017. FINDINGS: There is no significant change to patchy bilateral lung infiltrates with continued consolidation in right midlung field. There is blunting of both costophrenic angles which may represent pleural effusions. Cardiomegaly and pulmonary vascular congestion is again seen which is not significantly changed. IMPRESSION: 1: Stable chest x-ray exam with bilateral lung infiltrates and consolidation in the right midlung field. 2: Stable cardiomegaly and pulmonary vascular congestion. 3: Small bilateral pleural effusions are again seen. Dictated by: Dictated on workstation # [id number]
[2017-02-06 12:00] VITALS: BP 109/64
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
--- NOTE | 2017-02-06 12:40 | Cardiology Progress Note ---
Cardiology SOAP Progress Note Subjective: No complaints. Poor historian Objective: I&O/Vital Signs Vital Sign - Last 12Hours 02/06/17 02/06/17 02/06/17 02/06/17 01:01 01:54 03:45 06:31 Temp 97.6 Pulse 84 88 Resp 20 B/P (MAP) 104/88 Pulse Ox 93 98 92 O2 Delivery Nasal Cannula Nasal Cannula Nasal Cannula O2 Flow Rate 3.00 2.00 3.00 02/06/17 02/06/17 02/06/17 02/06/17 08:11 08:15 08:33 10:26 Temp 97.7 Pulse 83 96 Resp 16 B/P (MAP) 89/59 Pulse Ox 96 97 96 O2 Delivery Nasal Cannula Nasal Cannula O2 Flow Rate 5.00 3.00 3.00 Weight (Pounds): 163 Weight (Ounces): 0.0 Weight (Calculated Kilograms): 73.468015 Constitutional: No appears stated age, No AAO x 3, No apparent distress, No PERRL, No well-developed, No well-nourished, No other Respiratory: No accessory muscle use, No respiratory distress, No chest tender , No chest expansion is symmetric, No chest is bilaterally symmetric, No lungs clear to percussion, No lungs clear to auscultation, No crackles, No rhonchi, No rales, No stridor, No wheezing, No pleural rub, No other Cardiovascular: No regular rate-rhythm, No irregularly irregular, No extra beats, No parasternal heave is noted, No JVD, No edema, No bradycardia, No tachycardia, No point of maximal impulse, No cardiac thrills are palpable, No S1 and S2, No gallop/S3, No gallop/S4, No diastolic murmur, No systolic murmur, No friction rub, No click, No other Gastrointestional: No tender, No soft, No round, No distended, No pulsatile mass, No organomegaly, No guarding, No rebound, No tenderness, No hernia, No mass, No audible bowel sounds, No abnormal bowel sounds, No abdominal bruits, No spleenomegaly, No other Extremities: No normal range of motion, No non-tender, No normal inspection, No pedal edema, No calf tenderness, No normal capillary refill, No pelvis stable , No calf tenderness, No inflammation, No pedal edema, No slow capillary refill , No swelling, No other, No abrasion, No clubbing, No cyanosis, No ecchymosis, No laceration, No no lower extremity edema bilateral, No significant edema, No tenderness, No wound Neurologic/Psychiatric: no motor/sensory deficits, alert, normal mood/affect Skin: No normal color, No warm/dry, No cyanosis, No cool, No diaphoresis, No damp, No ecchymosis, No jaundice, No mottled, No pallor, No rash, No tattoos/ piercings, No ulcerations, No rash on exposed areas, No ulcerations on exposed areas, No other Results/Procedures: Labs Laboratory Tests 02/05/17 15:23: Glucometer 216H 02/05/17 20:40: Glucometer 197H 02/06/17 04:22: White Blood Count 8.0, Red Blood Count 4.12L, Hemoglobin 11.1L, Hematocrit 36L, Mean Corpuscular Volume 86, Mean Corpuscular Hemoglobin 27, Mean Corpuscular Hemoglobin Concent 31L, Red Cell Distribution Width 14.7H, Platelet Count 171, Mean Platelet Volume 11.1H, Sodium Level 139, Potassium Level 3.8, Chloride Level 95L, Carbon Dioxide Level 32, Anion Gap 12, Blood Urea Nitrogen 36H, Creatinine 1.24, Estimat Glomerular Filtration Rate 56, BUN/Creatinine Ratio 29 , Glucose Level 136H, Calcium Level 8.9, Total Bilirubin 0.4, Aspartate Amino Transf (AST/SGOT) 34, Alanine Aminotransferase (ALT/SGPT) 15, Alkaline Phosphatase 73, Troponin I < 0.30, Total Protein 6.5, Albumin 3.2 02/06/17 05:02: Glucometer 133H A/P: Assessment/Dx: Coronary artery disease Congestive heart failure Hypotension Aspiration Hypoglycemia Change in mental status Plan: Abnormal EKG, repeat showed return to baseline, probably due to coronary artery disease, had mild ST changes in the anterior wall with Q wave suggestive of subacute myocardial infarction, however serial troponin are negative we suggest no TN. In November the patient was admitted with positive troponins but family decided conservative treatment with medications only. Will continue medical therapy alone. Change in mental status, patient is unable to provide history, had history of dementia which appear to be worsening, had transient hypoglycemia, continue to monitor blood sugar. Questionable aspiration, followed and managed by primary care physician History of coronary artery disease with multiple interventions, last record reported a stenting done at [facility] on February 28, 2015 to the LAD using 2.2524 mm stent and 3.538 mm stent and 2.7512 mm stent, the report did not mention if it was a drug-eluting stent or bare-metal stent. Also had another stenting to the obtuse marginal branch of 2.538 mm with kissing balloon angioplasty to OM1 and OM 2. The right coronary artery had 70 percent lesion and FFR was done and it was 0.85. It was not stented at that time, has been treated conservatively, continue with conservative management for now. I will start aspirin and Lovenox and monitor H&H closely History of congestive heart failure with left ventricular systolic and diastolic dysfunction, acute on chronic left ventricular systolic and diastolic dysfunction, ischemic cardiomyopathy, last echocardiogram was reported to have ejection fraction 40-45 percent, borderline hypotension, cannot tolerate LULU inhibitor and/or ARB due to hypotension, currently cannot tolerate beta blockers due to hypotension. 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 History of chronic borderline hypotension. Continue to monitor blood pressure. History of mild dementia, appeared to be worse at this time. History of pancreatitis Thank you for your consultation. Please call me if you have any questions. Marcial Almaraz MD, FACP, FACC, FSCAI, FHRS, CCDS Interventional Cardiology Cardiac Electrophysiology Vascular Medicine and Endovascular Interventions Risa ALMARAZ MD Feb 06, 2017 12:40 pm
[2017-02-06 15:40] VITALS: BP 117/66
[2017-02-06] MEDS: ALFUZOSIN HCL 10 MG TAB (UROXATRAL) PO SCH (18:16)
[2017-02-06 20:00] VITALS: BP 102/59
[2017-02-06] MEDS: MELATONIN 3 MG TABLET PO SCH (21:47)
[2017-02-06] MEDS: ATORVASTATIN 20 MG (LIPITOR) TABLET PO SCH (21:47)
[2017-02-06 23:38] VITALS: BP 104/59
[2017-02-07] VITALS (7 sets, daily range): BP systolic 105–120; BP diastolic 53–70
[2017-02-07] MEDS: RT-ALBUTEROL/IPRATROPIUM 3 ML (DUONEB) VIAL INH SCH ×6 (02:40→22:08)
[2017-02-07] MEDS: RT-ALBUTEROL/IPRATROPIUM 3 ML (DUONEB) VIAL INH PRN ×2 (05:02→23:49)
[2017-02-07] MEDS: FUROSEMIDE 40 MG/4 ML INJ (LASIX) IVP SCH ×2 (06:57→17:33)
[2017-02-07] MEDS: PANTOPRAZOLE 40 MG (PROTONIX) TAB PO SCH (06:57)
[2017-02-07] MEDS: LIPASE/AMYLASE/PROTEASE (PANCRELIPASE) 5,000 UNITS CAP PO SCH ×3 (06:57→17:33)
[2017-02-07] MEDS: inSUlin (REGULAR) HUMAN 1 UNIT/0.01 ML (CHARGE PER UNIT) SC SCH ×4 (06:57→20:57)
[2017-02-07] MEDS: RIVASTIGMINE PATCH REMOVAL TP SCH (09:28)
[2017-02-07] MEDS: POLYETHYLENE GLYCOL 17 GM (MIRALAX) PACK PO SCH (09:28)
[2017-02-07] MEDS: ENOXAPARIN 60 MG/0.6 ML (LOVENOX) SYR SC SCH ×2 (09:28→20:56)
[2017-02-07] MEDS: RIVASTIGMINE 4.6 MG PATCH (EXELON) TD SCH (09:28)
[2017-02-07] MEDS: ASPIRIN E.C. 325 MG (ECOTRIN) TABLET PO SCH (09:28)
[2017-02-07] MEDS: LORATADINE (CLARITIN) 10 MG TAB PO SCH (09:29)
[2017-02-07] MEDS: SERTRALINE 50 MG (ZOLOFT) TABLET PO SCH (09:29)
[2017-02-07] MEDS: NYSTATIN CREAM (MYCOSTATIN) 30 GM TUBE TP SCH ×2 (09:30→20:57)
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
[2017-02-07] MEDS: ALFUZOSIN HCL 10 MG TAB (UROXATRAL) PO SCH (17:33)
[2017-02-07] MEDS: ATORVASTATIN 20 MG (LIPITOR) TABLET PO SCH (20:57)
[2017-02-07] MEDS: inSUlin DETERMIR 1 UNIT/0.01 ML (LEVEMIR) CHARGE PER UNIT SQ SCH (20:57)
[2017-02-07] MEDS: MELATONIN 3 MG TABLET PO SCH (20:57)
[2017-02-08] MEDS ORDERED: FUROSEMIDE 40 MG/4 ML INJ (LASIX) IVP STA (00:04)
[2017-02-08] MEDS ORDERED: LORazepam INJ 2 MG/ML (ATIVAN) VIAL IVP ONE (00:15)
[2017-02-08] MEDS: RT-ALBUTEROL/IPRATROPIUM 3 ML (DUONEB) VIAL INH SCH ×6 (03:06→21:58)
[2017-02-08 03:15] VITALS: BP 119/63
[2017-02-08] MEDS ORDERED: NS (IVPB) 50 ML ONE (04:54)
[2017-02-08] MEDS ORDERED: cefTRIAXone 1 GM (ROCEPHIN) VIAL ONE (04:54)
[2017-02-08] MEDS: cefTRIAXone INJECTION 1,000 MG in NS (IVPB) 50 ML IV SCH (05:06)
[2017-02-08 05:07] LABS: BASOPHILS % (AUTO) 0 % (0-10); EOSINOPHILS % (AUTO) 0 % (0-10); LYMPHOCYTES # (AUTO) 0.4 X 10^3 (1.0-4.0); LYMPHOCYTES % (AUTO) 7 % (12-44); MEAN CORPUSCULAR HEMOGLOBIN 27 PG (25-34); MEAN CORPUSCULAR HGB CONC 31 G/DL (32-36); MEAN CORPUSCULAR VOLUME 86 FL (80-99); MEAN PLATELET VOLUME 9.8 FL (7.4-10.4); MONOCYTES # (AUTO) 0.5 X 10^3 (0.0-1.0); MONOCYTES % (AUTO) 8 % (0-12); NEUTROPHILS # (AUTO) 5.4 X 10^3 (1.8-7.8); NEUTROPHILS % (AUTO) 85 % (42-75); PLATELET COUNT 180 10^3/uL (130-400); RED BLOOD COUNT 4.24 10^6/uL (4.35-5.85); RED CELL DISTRIBUTION WIDTH 14.6 % (10.0-14.5); WHITE BLOOD COUNT 6.3 10^3/uL (4.3-11.0)
[2017-02-08 05:28] LABS: ALBUMIN 3.5 GM/DL (3.2-4.5); BILIRUBIN,TOTAL 0.7 MG/DL (0.1-1.0); CALCIUM 8.5 MG/DL (8.5-10.1); CREATININE SERUM 1.28 MG/DL (0.60-1.30); POTASSIUM 4.2 MMOL/L (3.6-5.0)
[2017-02-08] MEDS: FUROSEMIDE 40 MG/4 ML INJ (LASIX) IVP SCH ×2 (06:07→17:34)
[2017-02-08] MEDS: inSUlin (REGULAR) HUMAN 1 UNIT/0.01 ML (CHARGE PER UNIT) SC SCH ×4 (06:20→21:15)
[2017-02-08] MEDS: PANTOPRAZOLE 40 MG (PROTONIX) TAB PO SCH (06:21)
[2017-02-08] MEDS: LIPASE/AMYLASE/PROTEASE (PANCRELIPASE) 5,000 UNITS CAP PO SCH ×3 (06:21→16:02)
[2017-02-08] MEDS ORDERED: KETOROLAC 15 MG/ML VIAL IVP ONE (07:00)
[2017-02-08 07:44] VITALS: BP 103/60
[2017-02-08] MEDS: RIVASTIGMINE PATCH REMOVAL TP SCH (08:36)
[2017-02-08] MEDS: POLYETHYLENE GLYCOL 17 GM (MIRALAX) PACK PO SCH (08:37)
[2017-02-08] MEDS: ASPIRIN E.C. 325 MG (ECOTRIN) TABLET PO SCH (08:37)
[2017-02-08] MEDS: SERTRALINE 50 MG (ZOLOFT) TABLET PO SCH (08:37)
[2017-02-08] MEDS: LORATADINE (CLARITIN) 10 MG TAB PO SCH (08:37)
[2017-02-08] MEDS: NYSTATIN CREAM (MYCOSTATIN) 30 GM TUBE TP SCH ×2 (09:03→20:18)
[2017-02-08] MEDS: RIVASTIGMINE 4.6 MG PATCH (EXELON) TD SCH (09:03)
[2017-02-08] MEDS: ENOXAPARIN 60 MG/0.6 ML (LOVENOX) SYR SC SCH ×2 (09:03→20:18)
--- NOTE | 2017-02-08 09:08 | Diagnostic Imaging Report ---
INDICATION: Aspiration. FINDINGS: Enlargement of the cardiac silhouette unchanged. Bilateral infiltrates have diffusely showed an overall improvement in interstitial density suggestive of decreased edema more localized opacity in the mid right lung laterally unchanged. Small amount of pleural fluid at the costophrenic angle stable. IMPRESSION: The diffuse interstitial opacity is improved. The more localized airspace disease in the right midlung laterally as well as the small pleural effusions unchanged. Dictated by: Dictated on workstation # [id number]
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
[2017-02-08] MEDS: LORazepam INJ 2 MG/ML (ATIVAN) VIAL IVP PRN (11:56)
[2017-02-08 16:00] VITALS: BP 118/67
[2017-02-08] MEDS: ALFUZOSIN HCL 10 MG TAB (UROXATRAL) PO SCH (16:02)
[2017-02-08] MEDS: ATORVASTATIN 20 MG (LIPITOR) TABLET PO SCH (20:19)
[2017-02-08] MEDS: MELATONIN 3 MG TABLET PO SCH (20:19)
[2017-02-08 20:36] VITALS: BP 109/57
[2017-02-08] MEDS: inSUlin DETERMIR 1 UNIT/0.01 ML (LEVEMIR) CHARGE PER UNIT SQ SCH (21:16)
[2017-02-09] VITALS: BP 125/91
[2017-02-09] MEDS: RT-ALBUTEROL/IPRATROPIUM 3 ML (DUONEB) VIAL INH SCH ×6 (02:29→21:57)
[2017-02-09] MEDS: LORazepam INJ 2 MG/ML (ATIVAN) VIAL IVP PRN (03:32)
[2017-02-09] MEDS: cefTRIAXone INJECTION 1,000 MG in NS (IVPB) 50 ML IV SCH (03:42)
[2017-02-09 04:00] VITALS: BP 121/89
[2017-02-09] MEDS: FUROSEMIDE 40 MG/4 ML INJ (LASIX) IVP SCH ×2 (06:12→17:22)
[2017-02-09] MEDS: inSUlin (REGULAR) HUMAN 1 UNIT/0.01 ML (CHARGE PER UNIT) SC SCH ×3 (06:12→17:23)
[2017-02-09] MEDS: LIPASE/AMYLASE/PROTEASE (PANCRELIPASE) 5,000 UNITS CAP PO SCH ×3 (06:13→16:46)
[2017-02-09] MEDS: PANTOPRAZOLE 40 MG (PROTONIX) TAB PO SCH (06:13)
[2017-02-09 08:00] VITALS: BP 111/73
[2017-02-09 08:03] LABS: BASOPHILS % (AUTO) 0 % (0-10); EOSINOPHILS % (AUTO) 0 % (0-10); LYMPHOCYTES % (AUTO) 17 % (12-44); MEAN CORPUSCULAR HEMOGLOBIN 27 PG (25-34); MEAN CORPUSCULAR HGB CONC 31 G/DL (32-36); MEAN CORPUSCULAR VOLUME 88 FL (80-99); MONOCYTES # (AUTO) 0.9 X 10^3 (0.0-1.0); MONOCYTES % (AUTO) 15 % (0-12); NEUTROPHILS # (AUTO) 4.2 X 10^3 (1.8-7.8); NEUTROPHILS % (AUTO) 68 % (42-75); PLATELET COUNT 171 10^3/uL (130-400); RED BLOOD COUNT 4.25 10^6/uL (4.35-5.85); RED CELL DISTRIBUTION WIDTH 14.9 % (10.0-14.5); WHITE BLOOD COUNT 6.2 10^3/uL (4.3-11.0)
[2017-02-09 08:16] LABS: CREATININE SERUM 1.47 MG/DL (0.60-1.30); POTASSIUM 4.3 MMOL/L (3.6-5.0)
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
--- NOTE | 2017-02-09 09:07 | Speech Therapy Progress Note ---
Therapy Progress Note Speech Pathology reattempted swallowing evaluation on this date. The patient is currently receiving BiPAP and displays reduced alertness. The patient is not appropriate for a swallowing evaluation at this time. Speech pathology will continue attempts, as able. Thank you. MAYUR ESPOSITO Feb 09, 2017 09:07
[2017-02-09] MEDS: ASPIRIN E.C. 325 MG (ECOTRIN) TABLET PO SCH ×2 (10:28→10:39)
[2017-02-09] MEDS: RIVASTIGMINE 4.6 MG PATCH (EXELON) TD SCH (10:28)
[2017-02-09] MEDS: POLYETHYLENE GLYCOL 17 GM (MIRALAX) PACK PO SCH ×2 (10:28→10:40)
[2017-02-09] MEDS: ENOXAPARIN 60 MG/0.6 ML (LOVENOX) SYR SC SCH ×2 (10:28→20:52)
[2017-02-09] MEDS: LORATADINE (CLARITIN) 10 MG TAB PO SCH ×2 (10:29→10:40)
[2017-02-09] MEDS: RIVASTIGMINE PATCH REMOVAL TP SCH (10:29)
[2017-02-09] MEDS: NYSTATIN CREAM (MYCOSTATIN) 30 GM TUBE TP SCH ×2 (10:29→20:53)
[2017-02-09] MEDS: SERTRALINE 50 MG (ZOLOFT) TABLET PO SCH ×2 (10:29→10:40)
[2017-02-09] MEDS: SALIVA STIMULANT MOUTH SPRAY (BIOTENE) 1.5 OZ MM PRN ×2 (10:38→17:23)
[2017-02-09 12:00] VITALS: BP 112/70
--- NOTE | 2017-02-09 15:45 | Cardiology Progress Note ---
Subjective Date Seen by Provider: Feb 09, 2017 Time Seen by Provider: 15:15 Subjective/Events-last exam Patient is in bed, not responding to verbal stimuli. Events from the weekend reviewed Review of Systems General: Other (unable to provide review of systems) Objective-Cardiology Exam Last Set of Vital Signs Vital Signs 02/08/17 02/09/17 02/09/17 02/09/17 09:00 12:00 13:00 14:07 Temp 98.5 Pulse 105 Resp 20 B/P (MAP) 112/70 Pulse Ox 97 O2 Delivery Nasal Cannula O2 Flow Rate 6.00 FiO2 60 Capillary Refill : Less Than 3 Seconds I&O Intake and Output 02/10/17 00:00 Intake Total 250 ml Output Total 400 ml Balance -150 ml Intake Oral 250 ml Output Urine Total 400 ml General: Moderate Distress HEENT: Atraumatic Neck: Supple Lungs: Other (bilateral rhonchi) Heart: Normal S1, Normal S2, Other (S3 is present, systolic murmur at the left sternal border) Abdomen: Normal Bowel Sounds, Soft Extremities: No Clubbing Skin: No Rashes Neuro: Other (unresponsive) Results Lab Laboratory Tests 02/09/17 07:00 A/P-Cardiology Admission Diagnosis Coronary artery disease Congestive heart failure Hypotension Aspiration Hypoglycemia Change in mental status Assessment/Plan Abnormal EKG, repeat showed return to baseline, probably due to coronary artery disease, had mild ST changes in the anterior wall with Q wave suggestive of subacute myocardial infarction, planning to evaluate echocardiogram, I had a discussion with his again and decision for medical therapy was made, patient was hospitalized in November 2016 with elevated troponin and the family also requested conservative management at that time. Change in mental status, patient is unable to provide history, had history of dementia which appear to be worsening, had transient hypoglycemia, continue to monitor blood sugar. Questionable aspiration, followed and managed by primary care physician History of coronary artery disease with multiple interventions, last record reported a stenting done at [facility] on February 28, 2015 to the LAD using 2.2524 mm stent and 3.538 mm stent and 2.7512 mm stent, the report did not mention if it was a drug-eluting stent or bare-metal stent. Also had another stenting to the obtuse marginal branch of 2.538 mm with kissing balloon angioplasty to OM1 and OM 2. The right coronary artery had 70 percent lesion and FFR was done and it was 0.85. It was not stented at that time, has been treated conservatively, continue with conservative management for now. I continue to monitor History of congestive heart failure with left ventricular systolic and diastolic dysfunction, acute on chronic left ventricular systolic and diastolic dysfunction, ischemic cardiomyopathy, last echocardiogram showed significant deterioration in his left ventricular function with ejection fraction 10-15 percent. Poor prognosis. 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 History of chronic borderline hypotension. Continue to monitor blood pressure. History of mild dementia, appeared to be worse at this time. History of pancreatitis Clinical Quality Measures DVT/VTE Risk/Contraindication: Risk Factor Score Per Nursin RFS Level Per Nursing on Admit: 4+=Very High DONNIE CASTLE MD Feb 09, 2017 15:45
[2017-02-09] MEDS: NS IV 1000 ML 1,000 ML IV SCH (15:48)
[2017-02-09 16:00] VITALS: BP 111/63
[2017-02-09] MEDS: ALFUZOSIN HCL 10 MG TAB (UROXATRAL) PO SCH (17:24)
[2017-02-09 20:00] VITALS: BP 99/61
[2017-02-09] MEDS: inSUlin DETERMIR 1 UNIT/0.01 ML (LEVEMIR) CHARGE PER UNIT SQ SCH (20:53)
[2017-02-09] MEDS: meTOprolol TARTRATE 25 MG (LOPRESSOR) TABLET PO SCH (20:53)
[2017-02-09] MEDS: MELATONIN 3 MG TABLET PO SCH (20:53)
[2017-02-09] MEDS: ATORVASTATIN 20 MG (LIPITOR) TABLET PO SCH (20:53)
[2017-02-10 00:20] VITALS: BP 112/59
[2017-02-10] MEDS: inSUlin (REGULAR) HUMAN 1 UNIT/0.01 ML (CHARGE PER UNIT) SC SCH ×3 (00:26→12:14)
[2017-02-10] MEDS: RT-ALBUTEROL/IPRATROPIUM 3 ML (DUONEB) VIAL INH SCH ×3 (02:01→10:10)
[2017-02-10 04:00] VITALS: BP 122/74
[2017-02-10] MEDS: cefTRIAXone INJECTION 1,000 MG in NS (IVPB) 50 ML IV SCH (05:17)
[2017-02-10] MEDS: NS IV 1000 ML 1,000 ML IV SCH (05:17)
[2017-02-10] MEDS: FUROSEMIDE 40 MG/4 ML INJ (LASIX) IVP SCH (06:41)
[2017-02-10 08:00] VITALS: BP 109/58
--- NOTE | 2017-02-10 08:24 | Cardiology Progress Note ---
Subjective Time Seen by Provider: 08:20 Subjective/Events-last exam Patient is in bed. Easily awakens but unable to answer any questions. Review of Systems unable to obtain ROS Objective-Cardiology Exam Last Set of Vital Signs Vital Signs 02/08/17 02/10/17 02/10/17 02/10/17 09:00 04:00 06:22 07:00 Temp 98.7 Pulse 108 Resp 19 B/P (MAP) 122/74 Pulse Ox 92 O2 Delivery Nasal Cannula O2 Flow Rate 6.00 FiO2 60 Capillary Refill : Less Than 3 Seconds I&O Intake and Output 02/11/17 00:00 Intake Total 150 ml Output Total 400 ml Balance -250 ml Intake Oral 150 ml Output Urine Total 400 ml General: Moderate Distress HEENT: Atraumatic Neck: Supple Lungs: Other (bilateral rhonchi) Heart: Normal S1, Normal S2, Other (S3 is present, systolic murmur at the left sternal border) Abdomen: Normal Bowel Sounds, Soft Extremities: No Clubbing Skin: No Rashes Neuro: Other (unresponsive) A/P-Cardiology Admission Diagnosis Coronary artery disease Congestive heart failure Hypotension Aspiration Hypoglycemia Change in mental status Assessment/Plan Abnormal EKG, repeat showed return to baseline, probably due to coronary artery disease, had mild ST changes in the anterior wall with Q wave suggestive of subacute myocardial infarction. 2D Echo on 02/05/17 revealed EF 10-15% with diastolic dysfunction. Discussion with his again and decision for medical therapy was made, patient was hospitalized in November 2016 with elevated troponin and the family also requested conservative management at that time. Change in mental status, patient is unable to provide history, had history of dementia which appear to be worsening, had transient hypoglycemia, continue to monitor blood sugar. Questionable aspiration, followed and managed by primary care physician History of coronary artery disease with multiple interventions, last record reported a stenting done at [facility] on February 28, 2015 to the LAD using 2.2524 mm stent and 3.538 mm stent and 2.7512 mm stent, the report did not mention if it was a drug-eluting stent or bare-metal stent. Also had another stenting to the obtuse marginal branch of 2.538 mm with kissing balloon angioplasty to OM1 and OM 2. The right coronary artery had 70 percent lesion and FFR was done and it was 0.85. It was not stented at that time, has been treated conservatively, continue with conservative management for now. I continue to monitor History of congestive heart failure with left ventricular systolic and diastolic dysfunction, acute on chronic left ventricular systolic and diastolic dysfunction, ischemic cardiomyopathy, last echocardiogram showed significant deterioration in his left ventricular function with ejection fraction 10-15 percent. Poor prognosis. 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 History of chronic borderline hypotension. Continue to monitor blood pressure. History of mild dementia, appeared to be worse at this time. History of pancreatitis Clinical Quality Measures DVT/VTE Risk/Contraindication: Risk Factor Score Per Nursin RFS Level Per Nursing on Admit: 4+=Very High HEMA LENNON Feb 10, 2017 08:24
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
[2017-02-10] MEDS: PANTOPRAZOLE 40 MG (PROTONIX) TAB PO SCH (09:35)
[2017-02-10] MEDS: POLYETHYLENE GLYCOL 17 GM (MIRALAX) PACK PO SCH (09:35)
[2017-02-10] MEDS: ASPIRIN E.C. 325 MG (ECOTRIN) TABLET PO SCH (09:36)
[2017-02-10] MEDS: meTOprolol TARTRATE 25 MG (LOPRESSOR) TABLET PO SCH (09:36)
[2017-02-10] MEDS: LORATADINE (CLARITIN) 10 MG TAB PO SCH (09:36)
[2017-02-10] MEDS: RIVASTIGMINE 4.6 MG PATCH (EXELON) TD SCH (09:37)
[2017-02-10] MEDS: ENOXAPARIN 60 MG/0.6 ML (LOVENOX) SYR SC SCH (09:37)
[2017-02-10] MEDS: LIPASE/AMYLASE/PROTEASE (PANCRELIPASE) 5,000 UNITS CAP PO SCH ×2 (09:37→12:15)
[2017-02-10] MEDS: SERTRALINE 50 MG (ZOLOFT) TABLET PO SCH (09:37)
[2017-02-10] MEDS: NYSTATIN CREAM (MYCOSTATIN) 30 GM TUBE TP SCH (09:38)
[2017-02-10] MEDS: RIVASTIGMINE PATCH REMOVAL TP SCH (09:38)
--- NOTE | 2017-02-10 09:39 | ST Dysphagia Evaluation ---
Speech Evaluation-General Medical Diagnosis CHF, Altered Mental Status Onset Date: Feb 05, 2017 Therapy Diagnosis Therapy Diagnosis: Mild Oropharyngeal Dysphagia Precautions Precautions: Aspiration Precautions/Isolations: Aspiration, Fall Prevention Referral Referring Physician: Dr. Monika Garcia Reason for Referral: Evaluation/Treatment Clinical Bedside Swallowing Evaluation Medical History Pertinent Medical History: CAD, DM, Dementia, Smoking Speech PLF/Current-Dysphagia Prior Level of Function The patient was unable to provide prior level of function information. The patient's was present for the evaluation who stated the patient mostly consumes a soft diet at home due to the absence of bottom dentition. Subjective The patient was recently admitted to [facility] with a diagnosis of CHF and altered mental status. The patient displays appropriate alertness on this date, with eyes open throughout the entirety of the visit. The patient made no attempts at verbalizations and minimally followed verbal commands. At this time, the patient is consuming a pureed diet with thin liquids. Per RN, the patient consumed a large glass of water without signs/symptoms of aspiration this AM. CXR: 02/08/17: The diffuse interstitial opacity is improved. The more localized airspace disease in the right midlung laterally as well as the small pleural effusions unchanged. Cognitive Status The patient did not respond to orientation questions poised by the clinician. Oral Motor Skills Dentition: Edentalous Current Food Consistancy: Pureed, Thin Liquids Ability to Follow Directions: Poor Oral Expression Ability: Severe Impairment Face Facial Symmetry: Symmetrical (At rest. The patient did not respond to prompts for oral mechanism exam.) Oral-Facial Assessment Labial Seal Description: Weak (Bilaterally.) Dysphagia Evaluation Consistencies Presented: Thin Liquid, Pureed - Lingual residue was noted following trials of puree. The patient was able to clear the lingual residue with a spontaneous second swallow. Pharyngeal Phase: Reduced Laryngeal Elevation - Reduced laryngeal elevation was noted with all consistencies tested. - Thin Liquid (via teaspoon and cup sip): No signs/symptoms of aspiration or laryngeal penetration were noted with single teaspoon sips or cup sips of water. An immediate, rigorous cough was noted following a straw drink of water. - Puree: No signs/symptoms of aspiration were displayed with boluses of puree ( vanilla pudding). The patient's vocal quality remained clear throughout the trials. Dietary Recommendations: Pureed Liquid Recommendations: Thin (No Straws) Swallowing Precautions: Liquids from Cup, No Straw, Oral Supervision Staff, Oral Supervision Caregiver, Small Bites and Sips, Sitting 90 Degrees 30 Post Intake Dysphagia Evaluation Summary - The patient displayed mild oropharyngeal dysphagia characterized by reduced lingual range of motion and strength, as well as, decreased laryngeal elevation. Barriers to Learning Cognition Speech Short Term Goals Short Term Goals Short Term Goals 1. The patient will demonstrate swallowing strategies with 80% accuracy and mild clinician verbal cueing. Time Frame-STG: Five Days Speech Group Home Goals Accounting Methods Analyst Goals 1. The patient will tolerate the least restrictive diet without signs/symptoms of aspiration or laryngeal penetration. Time Frame: One Week Speech-Plan Treatment Plan Speech Therapy Treatment Plan: Continue Plan of Care Continue skilled speech pathology therapy to target swallowing safety and strategies. Frequency: 3 times per week Estimated Hrs Per Day: .25 hour per day Rehab Potential: Guarded Safety Risks/Education Teaching Recipient: Patient, Significant Other Teaching Methods: Discussion Response to Teaching: Verbalize Understanding Education Topics Provided: Results, Recommendations, Plan of Care, Swallowing Strategies, Signs/Symptoms of Aspiration Time Speech Therapy Time In: 08:50 Speech Therapy Time Out: 09:10 Total Billed Time: 20 Billed Treatment Time 1, MAYUR NOLASCO Feb 10, 2017 09:39
[2017-02-10 12:00] VITALS: BP 107/63
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
[2017-02-10] MEDS ORDERED: LORA2ORA PO (12:36)
[2017-02-10] MEDS ORDERED: POTA10TA10 PO (12:36)
[2017-02-10] MEDS ORDERED: ATRO2DRO4 SL (12:36)
[2017-02-10] MEDS ORDERED: FURO-125 PO (12:36)
[2017-02-10] MEDS ORDERED: INSU100V6 SQ (12:36)
--- NOTE | 2017-02-10 12:44 | Discharge Inst-Skilled Nursing ---
Discharge Inst-Skilled NF Patient Instructions Patient Problems: heart failure dementia weakness edema Consult/Follow Up/Orders Follow Up Appt.: [facility] hospice with [facility] to be initiated at residential Skilled NF Admit to: [facility] Certification (SNF) I certify that SNF services are required to be given on an inpatient basis because of the above named patient's need for halfway care on a continuing basis for the conditions(s) for which he/she was receiving inpatient hospital services prior to his/her transfer to the SNF. Fdc Facility Order: Nursing Services, Other (hospice to eval and treat) Daily Activity as Tolerated: Yes New & Resume Previous Orders New & Resume Previous Orders resume previous finger stick blood checks per previous protocol. Elise Garcia Feb 10, 2017 12:38 Medication List: Active Scripts Active Lorazepam Intensol (Lorazepam) 2 Mg/1 Ml Oral.conc 2 Mg PO Q4H PRN 30 Days Potassium Chloride 10 Meq Tablet.er 10 Meq PO DAILY 30 Days Lasix (Furosemide) 20 Mg Tablet 20 Mg PO BID 30 Days Atropine Sulfate 2 Ml Drops 0 Ml SL Q6H PRN 30 Days Lantus (Insulin Glargine,Hum.rec.anlog) 100 Unit/1 Ml Vial 15 Unit SQ HS 30 Days Reported Novolog (Insulin Aspart) 100 Unit/1 Ml Susp 15 Unit SQ TIDWM Nystatin 15 Gm Cream..g. TP BID APPLY TO PENIS AND NERY AREA Metoprolol Tartrate 25 Mg Tablet 12.5 Mg PO BID TAKES 1/2 (25MG) TABLET Furosemide 20 Mg Tablet 20 Mg PO DAILY Calcium Carbonate 500 Mg Tablet 500 Mg PO BID Thera-M Tablet (Multivits,Ca,Minerals/Iron/FA) 1 Each Tablet 1 Tab PO DAILY Atorvastatin Calcium 20 Mg Tablet 20 Mg PO HS Trazodone HCl 50 Mg Tablet 50 Mg PO HS Melatonin 3 mg Tablet (Melatonin/Pyridoxine) 1 Each Tablet 3 Mg PO HS Omeprazole 20 Mg Capsule.dr 20 Mg PO DAILY Cetirizine HCl 10 Mg Tablet 10 Mg PO DAILY Sertraline HCl 25 Mg Tablet 25 Mg PO DAILY Rivastigmine 1 Each Patch.td24 4.6 Mg TD DAILY Zenpep Dr 15,000 Units Capsule (Lipase/Protease/Amylase) 1 Each Capsule.dr 15, 000 Units PO TID Miralax (Polyethylene Glycol 3350) 17 Gm Powd.pack 17 Gm PO DAILY Tamsulosin HCl 0.4 Mg Cap.er.24h 0.4 Mg PO 1700 Aspir 81 (Aspirin) 81 Mg Tablet.dr 81 Mg PO DAILY Lab results: Laboratory Tests Test 02/09/17 16:27 02/10/17 00:20 02/10/17 05:06 02/10/17 11:52 Range/Units Glucometer 285 H 87 150 H 273 H 70-110 MG/DL My orders: Orders - ELISE GARCIA MD Accucheck Q6hr Q6HR (02/09/17 14:25) Insulin (Regular) Human (Humulin R (Per (02/09/17 18:00) Ns Iv 1000 Ml (Sodium Chloride 0.9%) (02/09/17 14:30) Patient Visit (02/10/17 ) Dysphagia Evaluation Std (02/10/17 ) Attending Discharge (02/10/17 12:36) ELISE GARCIA MD Feb 10, 2017 12:44
== END 2017-02-10 14:14 | disposition hospice, inpatient (51) | DRG 280 ==
LOC: EDUNIT# 18:06 → ER 18:08 → ICU 19:25 → 4TH 02-05 13:25 → EDPENDDISTM 02-10 12:30
PROVIDERS: ADMIT Family Medicine; ATTEND Family Medicine
DX: I13.0 Hypertensive heart and chronic kidney disease with heart failure and stage 1 through stage 4 chronic kidney disease, or unspecified chronic kidney disease (principal); I50.41 Acute combined systolic (congestive) and diastolic (congestive) heart failure; I21.3 ST elevation (STEMI) myocardial infarction of unspecified site; J98.11 Atelectasis; F01.51 Vascular dementia, unspecified severity, with behavioral disturbance; I25.5 Ischemic cardiomyopathy; I25.10 Atherosclerotic heart disease of native coronary artery without angina pectoris; J44.9 Chronic obstructive pulmonary disease, unspecified; N18.9 Chronic kidney disease, unspecified; Z66 Do not resuscitate; E78.00 Pure hypercholesterolemia, unspecified; K21.9 Gastro-esophageal reflux disease without esophagitis; K59.00 Constipation, unspecified; E11.649 Type 2 diabetes mellitus with hypoglycemia without coma; M19.91 Primary osteoarthritis, unspecified site; F32.9 Major depressive disorder, single episode, unspecified; E83.42 Hypomagnesemia; N28.9 Disorder of kidney and ureter, unspecified; N40.0 Benign prostatic hyperplasia without lower urinary tract symptoms; I25.2 Old myocardial infarction; Z79.4 Long term (current) use of insulin; Z95.5 Presence of coronary angioplasty implant and graft; Z87.820 Personal history of traumatic brain injury; Z99.81 Dependence on supplemental oxygen; Z87.891 Personal history of nicotine dependence
CPT/HCPCS: 36415; 70450; 71010; 80048; 80053; 81000; 82962; 83735; 83880; 84443; 84484; 85007; 85025; 85027; 85610; 85730; 87040; 93005; 93041; 93306; 94640; 94660; 94760; 94799; 96365; 96375